=== PATIENT | female | born 1940 | race Caucasian/White ===

== ENCOUNTER → 2017-12-20 13:34 | Outpatient (CLI) | payer MEDICARE, SELFPAY | PROVIDERS: Family Provider Family Medicine; PCP Family Medicine; Visit Provider Nurse Practitioner Family | DX: R30.0 Dysuria (principal) ==

== ENCOUNTER → 2018-03-29 15:14 | Outpatient (CLI) | payer MEDICARE, SELFPAY | PROVIDERS: Family Provider Family Medicine; PCP Family Medicine; Visit Provider Family Medicine | DX: M51.36 Other intervertebral disc degeneration, lumbar region (principal); M43.16 Spondylolisthesis, lumbar region; G89.29 Other chronic pain | CPT/HCPCS: 72110 ==

== ENCOUNTER → 2018-06-19 13:17 | Outpatient (CLI) | payer MEDICARE, SELFPAY ==
--- NOTE | 2018-06-19 13:19 | CT_ITS ---
STUDY: CTA OF THE BRAIN REASON FOR EXAM: Female, 78 years old. One month history of constant headaches. RADIATION DOSAGE (If Supplied By Facility): CTDIvol = ( 26.65 ) mGy, DLP = ( 1140.17 ) mGycm TECHNIQUE: CT angiography was performed with a multi-detector CT scanner. Data acquisition was obtained from the skull base through the vertex following intravenous administration of 50 ml of Isovue-370. MIP images were reconstructed from the axial data set. Post-processing of the angiographic images was performed, with multiplanar reformation and 3D reconstruction. Individualized dose optimization techniques were used for this CT. COMPARISON: None. FINDINGS: Normal bilateral petrous carotid arteries. There is calcified plaque formation of the right cavernous carotid artery, without a cross-sectional luminal stenosis. There is calcified plaque formation of the left cavernous carotid artery, without a cross-sectional luminal stenosis. Normal right A1 segments of the anterior cerebral artery. Normal left A1 segments of the anterior cerebral artery. Normal intact anterior communicating artery (ACOM). Normal bilateral A2 segments of the anterior cerebral arteries. Normal right M1 and M2 segments of the middle cerebral arteries, with a normal M1 bifurcation. Normal left M1 and M2 segments of the middle cerebral arteries, with a normal M1 bifurcation. There is a persistent origin of the right posterior cerebral artery with absence of the posterior communicating artery (PCOM). There is a persistent origin of the left posterior cerebral artery with absence of the posterior communicating artery (PCOM). Normal bilateral vertebral arteries. Normal basilar artery with a normal basilar bifurcation. The visualized bilateral superior cerebellar (SCA) arteries are normal. Normal bilateral P1, P2 and visualized P3 segments of the posterior cerebral arteries. There is no demonstrated aneurysm of the [place]. Mild cerebral atrophy. A tiny lacuna is seen in the right basal ganglion. Mucosal thickening of the maxillary and ethmoid sinus. CT/CTA Head W/WO Contrast IMPRESSION: Cerebral atrophy. Tiny lacunae in the right basal ganglia. Normal [place] without a demonstrated aneurysm or hemodynamically significant stenosis. Electronically Signed: Ender Tucker MD at 14:31 EST Tel [phone], Service support ,
[2018-06-19 13:56] LABS: Absolute Lymphocyte Count 2.57 X10^3/ul (0.83-4.51); Basophil# 0.06 X10^3/uL; Basophil% 0.7 % (0-1); Differential Indicated SCAN CRITERIA MET; Eosinophil# 0.13 X10^3/uL; Eosinophils% 1.5 % (0-5); Hematocrit 32.6 % (37-47); Hemoglobin 9.2 g/dl (12.0-15.0); Lymphocyte # 2.57 X10^3/ul (4.0); Lymphocyte % 30.4 % (19-41); Mean Corp Hgb Conc 28.2 g/gl (32-36); Mean Corpuscular Hgb 18.7 pg (27.0-32.0); Mean Corpuscular Volume 66.3 fL (81-99); Mean Platelet Vol. 9.8 fl (6.2-12.0); Monocyte# 0.74 X10^3/uL; Monocyte% 8.7 % (0-10); Neutrophil # 4.95 X10^3/uL (2.7-7.7); Neutrophil % 58.6 % (47-70); POSITIVE COUNT NO; POSITIVE DIFFERENTIAL NO; POSITIVE MORPHOLOGY YES; Platelet Count 321 K/mm3 (150-450); RBC Distribution Width CV 20.3 % (11.6-14.6); RBC Distribution Width SD 48.1 fl (35.1-43.9); Red Blood Count 4.92 M/mm3 (4.2-5.4); White Blood Count 8.5 K/mm3 (4.4-11.0)
[2018-06-19 13:56] LABS: CREATININE FINGERSTICK 0.7 mg/dL (0.55-1.02); EGFR FINGERSTICK > 60.0000 mL/min (>60)
[2018-06-19 14:12] LABS: Platelet Estimate ADEQUATE (ADEQ)
[2018-06-19 14:13] LABS: Anisocytosis 2+; Hypochromasia 2+; Macrocytosis 1+; Microcytosis 1+; Polychromasia RARE
[2018-06-19 14:28] LABS: Anion Gap 8 (5-15); BUN 23 mg/dL (7-18); BUN/Creat Ratio 29.7 RATIO (10-20); Calcium,Total 8.7 mg/dL (8.5-10.1); Chloride 107 mmol/L (98-107); Creatinine, Serum 0.78 mg/dL (0.55-1.02); EST Glomerular Filtration Rate 76 mL/min (>60); Est Glom Filt Rate - Afr Amer 92 mL/min (>60); Glucose 90 mg/dL (74-106); Potassium 4.3 mmol/L (3.5-5.1); Sodium Level 143 mmol/L (136-145)
== END ==
PROVIDERS: Family Provider Family Medicine; PCP Family Medicine; Referring Provider Internal Medicine; Visit Provider Internal Medicine
DX: G31.9 Degenerative disease of nervous system, unspecified (principal); I10 Essential (primary) hypertension; R51 Headache; R53.83 Other fatigue
CPT/HCPCS: 36415; 70496; 80048; 85025; Q9967

== ENCOUNTER → 2018-09-13 08:42 | Outpatient (CLI) | payer MEDICARE, SELFPAY ==
[2018-08-31 14:10] VITALS: BMI 28.3
--- NOTE | 2018-09-13 08:51 | ART_ITS ---
Procedure A bilateral lower extremity continuous wave Doppler with analog waveform analysis,segmental pressures,and ankle brachial indexes without exercise. Left Segmental Pressures Left brachial= 127mmHg. Left posterior tibial artery = 145mmHg. Left dorsalis pedis artery = 140mmHg. Right Segmental Pressures Right brachial= 137mmHg. Right thigh = 158mmHg. Right calf = 149mmHg. Right posterior tibial artery = 142mmHg. Right dorsalis pedis artery = 132mmHg. Indices The right ankle brachial index by the posterior tibial artery is 1.04. The right ankle brachial index by the dorsalis pedis is 0.96. The left ankle brachial index by the posterior tibial artery is 1.06. The left ankle brachial index by the dorsalis pedis is 1.02. Interpretation Summary 1. No evidence of significant occlussive disease at rest with bilateral triphasic flow and FERN 1.04/1.06. Ordering Physician: Burton Noguera Referring Physician: Burton Noguera Performed By: Danya Ortiz RDCS/RVT
--- NOTE | 2018-09-13 08:51 | CDU_ITS ---
Reason For Study: Carotid Artery Disease Rt. Velocities/BP Lt. Velocities/BP Prox CCA 69/13 cm/sec. Prox CCA 112/22 cm/sec. Mid CCA 72/21 cm/sec. Mid CCA 72/17 cm/sec. Dist CCA 68/18 cm/sec. Dist CCA 245/46 cm/sec. Prox ICA 239/54 cm/sec. Prox ICA 207/49 cm/sec. Mid ICA 167/35 cm/sec. Mid ICA 211/50 cm/sec. Dist ICA 126/24 cm/sec. Dist ICA 115/33 cm/sec. Rt. ICA/CCA = 3.32. Lt. ICA/CCA = 2.93. Prox ECA 120/18 cm/sec. Prox ECA 155/19 cm/sec. Rt. Vert. 58/10 cm/sec. Lt. Vert. 76/17 cm/sec. Right Extracranial There is heterogeneous, smooth atherosclerotic plaque noted in the right common carotid artery. There is heterogeneous, irregular atherosclerotic plaque noted in the right internal carotid artery. There is intimal thickening but no significant atherosclerotic plaque noted in the right external carotid artery. Antegrade flow is noted in the right vertebral artery. Left Extracranial There is homogeneous, smooth atherosclerotic plaque noted in the left common carotid artery. There is homogeneous, irregular atherosclerotic plaque noted in the left internal carotid artery. There is no significant atherosclerotic plaque noted in the left external carotid artery. Antegrade flow is noted in the left vertebral artery. Procedure Carotid Duplex 51854. Prelim given to Donavon Ortiz NP. Exam performed in department. Interpretation Summary Moderate (50-69%) stenosis right extracranial internal carotid. Moderate (50-69%) stenosis left extracranial internal carotid. Flow within the vertebral arteries is antegrade bilaterally. Ordering Physician: Burton Noguera Referring Physician: Levi Rodriguez Performed By: Danya Ortiz, JEFF, RVT
--- NOTE | 2018-09-13 08:51 | AAVD_ITS ---
Reason For Study: AAA Aorta Measurements Aorta Doppler Measurements Proximal aorta measures2.01cm x 2.16cm. in cross- Peak systolic flow velocities within the proximal sectional axis. aorta measure 97 cm/sec. Proximal aorta measures1.87cm. in longitudinal Peak systolic flow velocities within the mid aorta axis. measure 104 cm/sec. Mid aorta measures1.76cm x 1.69cm. in cross- Peak systolic flow velocities within the distal sectional axis. aorta measure 92 cm/sec. Mid aorta measures1.52cm. in longitudinal axis. Distal aorta measures1.35cm x 1.41cm. in cross- sectional axis. Distal aorta measures1.28cm. in longitudinal axis. Left Iliac Artery Left iliac artery measures 0.76cm x 0.71 cm. in the cross-sectional axis. Left iliac artery measures 0.75 cm. in the longitudinal axis. Peak systolic velocity in the left iliac artery measures 194 cm/sec. Right Iliac Artery Right iliac artery measures 0.78cm x 0.80 cm. in the cross-sectional axis. Right iliac artery measures 0.80 cm. in the longitudinal axis. Peak systolic velocity in the right iliac artery measures 182 cm/sec. Procedure Aorta IVC Iliac vasculature or bypass grafts 34915. Exam performed in department. Interpretation Summary 1. No aortoiliac aneurysm or significant stenosis. Ordering Physician: Burton Noguera Referring Physician: Levi Rodriguez Performed By: Danya Ortiz, JEFF, RVT
== END ==
PROVIDERS: Family Provider Family Medicine; PCP Family Medicine; Referring Provider Internal Medicine Cardiovascular Disease; Visit Provider Internal Medicine Cardiovascular Disease
DX: I65.23 Occlusion and stenosis of bilateral carotid arteries (principal); I73.9 Peripheral vascular disease, unspecified
CPT/HCPCS: 93880; 93923; 93978

== ENCOUNTER → 2018-09-26 06:48 | Outpatient (CLI) | payer MEDICARE, SELFPAY ==
[2018-08-31 14:10] VITALS: BMI 28.3
--- NOTE | 2018-09-26 06:53 | ECHOD_ITS ---
Reason For Study: CAD/ASHD Procedure This was a 2D Doppler, Color Flow transthoracic echocardiogram. Myocardial strain analysis was performed in this exam to aid in the assessment of cardiac function. The exam was of fair technical quality due to diminished acoustic windows. Exam performed in department. Left Ventricle Normal LV size. Left ventricular systolic function is normal. The estimated ejection fraction is 60 %. The global longitudinal strain = -22 % (normal). There is evidence of diastolic dysfunction. No regional wall motion abnormalities noted. Right Ventricle Normal RV size. Normal systolic function. Atria The left atrium is mildly enlarged. Normal right atrium. No doppler evidence for ASD. Mitral Valve There is mild mitral annular calcification. Extension of the mitral annular recalcification into the base of the posterior mitral valve leaflet. Trivial mitral valve insufficiency. Tricuspid Valve Normal tricuspid valve. Trivial tricuspid valve insufficiency. Right ventricular systolic pressure estimated to be 35 mmHg. Aortic Valve Trisinus/trileaflet aortic valve. Mild focal aortic valve calcification. Pulmonic Valve The pulmonic valve is not well visualized. Trivial pulmonic valve insufficiency. Great Vessels Normal sized aortic root. Pericardium/Pleural No pericardial effusion. MMode/2D Measurements & Calculations LVIDd: 4.7 cm IVSd: 0.82 cm Ao root diam: 3.1 cm LVIDs: 3.7 cm LVPWd: 0.88 cm RVDd: 3.8 cm FS: 22.9 % LAV(MOD-bp): 50.7 ml LVAd ap4: 34.0 cm2 SV(MOD-sp4): 65.5 ml LAV(MOD-bp) Indexed: 29.9 ml/m2 EDV(MOD-sp4): 111.5 ml LAV(MOD-sp2): 53.9 ml EDV(sp4-el): 118.5 ml LAV(MOD-sp4): 45.9 ml LVAs ap4: 19.9 cm2 ESV(MOD-sp4): 46.0 ml ESV(sp4-el): 47.1 ml EF(MOD-sp4): 58.7 % EF(sp4-el): 60.2 % SV(sp4-el): 71.3 ml LA A4 area: 17.4 cm2 LA dimension(2D): 3.1 cm RA A4 area: 14.4 cm2 Time Measurements MV dec time: 0.29 sec Doppler Measurements & Calculations MV E max andrea: 115.0 cm/sec Lat Peak E' Andrea: 8.0 cm/sec Med Peak E' Andrea: 5.6 cm/sec MV A max andrea: 143.5 cm/sec E/E' lat: 14.5 E/E' med: 20.4 MV E/A: 0.80 Ao V2 max: 146.8 cm/sec LV V1 max: 133.2 cm/sec PA V2 max: 101.9 cm/sec Ao max P.6 mmHg LV V1 max P.1 mmHg TR max andrea: 283.4 cm/sec TR max P.1 mmHg Interpretation Summary Left ventricular systolic function is normal. The estimated ejection fraction is 60 %. The global longitudinal strain = -22 % (normal). The left atrium is mildly enlarged. There is mild mitral annular calcification. Extension of the mitral annular recalcification into the base of the posterior mitral valve leaflet. Trivial mitral valve insufficiency. Trivial tricuspid valve insufficiency. Mild focal aortic valve calcification. Trivial pulmonic valve insufficiency. Right ventricular systolic pressure estimated to be 35 mmHg. There is evidence of diastolic dysfunction. Ordering Physician: Burton Noguera Referring Physician: SHARI PENDLETON Performed By: Jane Hays RDCS
--- NOTE | 2018-09-26 12:49 | STRESSREP_ITS ---
Stress Test Report Date: 09-26-2018 Procedure: Pharmacologic stress nuclear imaging study Indications: CAD; PCI; peripheral arterial occlusive disease Consent: Per the patient Procedure: The patient underwent pharmacologic (Regadenoson) evaluation with a peak heart rate of 100 beats per minute (71% predicted maximal heart rate) and a peak blood pressure of 138/70 mmHg. The baseline ECG demonstrated Normal sinus rhythm; nonspecific ST/T-wave abnormality . The peak pharmacologic ECG demonstrated continued nonspecific ST/T-wave abnormality . There was a rare PVC during recovery . There was no complaint of chest discomfort during pharmacologic infusion or recovery. The examination was discontinued secondary to completion of protocol. Impression: 1. Pharmacologic (Regadenoson) evaluation 2. Peak pharmacologic ECG with Continue nonspecific ST/T-wave abnormality . 3. There was a rare PVC during recovery . 4. Nuclear images pending Myocardial perfusion imaging study: Technique: The patient was injected with 10.6 millicuries of technetium 99m Cardiolite and subsequently rest SPECT Cardiolite nuclear imaging was obtained in the horiz ontal long, vertical long, and short axis views. The patient underwent pharmacologic (Regadenoson) evaluation with a peak heart rate of 100 beats per minute (71 % percent predicted maximal heart rate) and a peak blood pressure of 138/70 mmHg. The patient was injected with 32.3 millicuries of technetium 99m Cardiolite and subsequently stress SPECT Cardiolite nuclear imaging was obtained in the horizontal long, vertical long, and short axis views. A gated Cardiolite study at peak stress was obtained. Interpretation: Rest and stress SPECT Cardiolite nuclear imaging status post realignment, normalization, and attenuation correction demonstrate relative uniform tracer uptake and myocardial perfusion appearing within normal limits . There is end systolic thickening and brightening. The gated Cardiolite study demonstrates myocardial thickening and inward wall motion. The reported LVEF is 70 %. Impression: 1. Rest and stress SPECT Cardiolite nuclear imaging demonstrate relative uniform tracer uptake and myocardial perfusion appearing within normal limits. 2. The gated Cardiolite study reports an LVEF of 70 %. This note was generated with Bullhornation software. It may contain incorrect words, spelling, and punctuation that were not noted in checking the note before signing.
== END ==
PROVIDERS: Family Provider Family Medicine; PCP Family Medicine; Referring Provider Internal Medicine Cardiovascular Disease; Visit Provider Internal Medicine Cardiovascular Disease
DX: I25.10 Atherosclerotic heart disease of native coronary artery without angina pectoris (principal); Z95.5 Presence of coronary angioplasty implant and graft; R06.09 Other forms of dyspnea
CPT/HCPCS: 78452; 93017; 93306; A9500; A4216; J2785

== ENCOUNTER → 2018-10-02 14:17 | Outpatient (CLI) | payer MEDICARE, SELFPAY ==
[2018-10-02 14:09] VITALS: BMI 28.3
--- NOTE | 2018-10-02 14:20 | RAD_ITS ---
HISTORY: CHRONIC PAIN, NKI COMPARISON: None FINDINGS: # of images incl. paperwork: 5 AP view of the pelvis. AP and lateral views of both hips: PELVIC BONES: No displaced fracture, destructive or sclerotic lesions. Note that overlapping bowel shadows may however obscure fine detail. Sacroiliac joints are unremarkable. HIPS: Mild bilateral hip osteoarthritis, mild for age. No displaced fracture or dislocation. SOFT TISSUES: Unremarkable. Lumbar spine fusion hardware partially visible. RAD/Hips B/L min 2 views w/ Pelvis IMPRESSION: No acute findings. Mild for age bilateral hip osteoarthritis. at 0411 Reported and signed by: Andrey Queen MD Electronically Signed: Andrey Queen, at 4:10 EST Tel , Service support ,
== END ==
PROVIDERS: Family Provider Family Medicine; PCP Family Medicine; Referring Provider Orthopaedic Surgery; Visit Provider Orthopaedic Surgery
DX: M16.0 Bilateral primary osteoarthritis of hip (principal)
CPT/HCPCS: 73521

== ENCOUNTER → 2018-10-03 09:30 | Outpatient (CLI) | payer MEDICARE, SELFPAY ==
[2018-10-03 09:09] VITALS: BMI 28.3
[2018-10-03 12:50] LABS: Anion Gap 6 (5-15); BUN 30 mg/dL (7-18); BUN/Creat Ratio 31.7 RATIO (10-20); Calcium,Total 9.6 mg/dL (8.5-10.1); Chloride 106 mmol/L (98-107); Creatinine, Serum 0.94 mg/dL (0.55-1.02); EST Glomerular Filtration Rate 61 mL/min (>60); Est Glom Filt Rate - Afr Amer 73 mL/min (>60); Glucose 134 mg/dL (74-106); Sodium Level 138 mmol/L (136-145)
== END ==
PROVIDERS: Family Provider Family Medicine; PCP Family Medicine; Visit Provider Internal Medicine
DX: I10 Essential (primary) hypertension (principal)
CPT/HCPCS: 36415; 80048

== ENCOUNTER → 2018-10-17 12:02 | Outpatient (CLI) | payer MEDICARE, SELFPAY ==
[2018-10-17 11:00] VITALS: BMI 28.3
[2018-10-17 12:55] LABS: Absolute Neutrophil Count 6.3 X10^3/uL (2.0-7.7); Basophil# 0.05 X10^3/uL; Basophil% 0.5 % (0-1); Eosinophil# 0.18 X10^3/uL; Eosinophils% 1.9 % (0-5); Lymphocyte % 22.1 % (19-41); Mean Corp Hgb Conc 30.6 g/gl (32-36); Mean Corpuscular Hgb 22.4 pg (27.0-32.0); Mean Corpuscular Volume 73.3 fL (81-99); Mean Platelet Vol. 11.1 fl (6.2-12.0); Monocyte# 0.82 X10^3/uL; Monocyte% 8.6 % (0-10); Neutrophil # 6.33 X10^3/uL (2.7-7.7); Neutrophil % 66.8 % (47-70); Platelet Count 256 K/mm3 (150-450); RBC Distribution Width CV 18.4 % (11.6-14.6); RBC Distribution Width SD 47.2 fl (35.1-43.9); Red Blood Count 4.91 M/mm3 (4.2-5.4); White Blood Count 9.5 K/mm3 (4.4-11.0)
[2018-10-17 12:56] LABS: Differential Indicated SCAN CRITERIA MET; POSITIVE COUNT NO; POSITIVE DIFFERENTIAL NO; POSITIVE MORPHOLOGY YES
[2018-10-17 13:40] LABS: Hypochromasia 1+; Microcytosis 2+
[2018-10-17 14:08] LABS: Ferritin 5 ng/mL (8-252); Iron 19 ug/dL (50-170); Iron Binding Capacity,Total 456 ug/dL (250-450)
== END ==
PROVIDERS: Family Provider Family Medicine; PCP Family Medicine; Visit Provider Internal Medicine
DX: D64.9 Anemia, unspecified (principal); Z98.890 Other specified postprocedural states
CPT/HCPCS: 82728; 83540; 83550; 85025

== ENCOUNTER → 2018-10-27 16:39 | Outpatient (CLI) | payer MEDICARE, SELFPAY ==
[2018-10-17 11:00] VITALS: BMI 28.3
--- NOTE | 2018-10-27 16:45 | RAD_ITS ---
STUDY: X-RAY - LUMBAR SPINE REASON FOR EXAM: Female, 78 years old. Chronic low back pain. TECHNIQUE: 5 view(s) of the lumbar spine were obtained including oblique views. COMPARISON: None FINDINGS: There is an exaggerated lumbar lordosis. There is no substantial scoliosis. Grade 1 anterolisthesis of L4 on L5. Normal vertebral bodies and endplates. There is multi-level degenerative disc disease with multi-level disc space narrowing. Is evidence of prior laminectomy and interpedicular screw fixation at the L4-L5 and L5-S1 levels. There is atherosclerotic calcification of the abdominal aorta without a demonstrated aneurysm. RAD/L/S Spine Min 4 Views IMPRESSION: Degenerative changes of the spine, as detailed above. Prior laminectomy and fusion at the L4-L5 and L5-S1 levels. Grade 1 anterolisthesis of L4 on L5 Electronically Signed: Ender Tucker, at 12:47 EDT , Service support ,
--- NOTE | 2018-10-27 16:48 | RAD_ITS ---
STUDY: X-RAY - CERVICAL SPINE REASON FOR EXAM: Female, 78 years old. Chronic neck pain. TECHNIQUE: 5 view(s) of the cervical spine were obtained including oblique views. COMPARISON: None FINDINGS: There are degenerative changes of the anterior atlantoaxial articulation. Normal odontoid process. There is an exaggerated cervical lordosis. Normal vertebral bodies and endplates. Minimal anterior listhesis of C4 on C5 due to facet joint osteoarthritis. Normal disc space heights. Normal visualized intervertebral neuroforamina. Surgical clips are seen in the left side of the neck most likely from prior carotid endarterectomy. RAD/Cerv Spine 4 or 5 Views IMPRESSION: Facet joint osteoarthritis with minimal anterior listhesis of C4 on C5. Electronically Signed: Ender Tucker, at 12:45 EDT , Service support ,
== END ==
PROVIDERS: Family Provider Family Medicine; PCP Family Medicine; Referring Provider Anesthesiology; Visit Provider Anesthesiology
DX: M54.2 Cervicalgia (principal)
CPT/HCPCS: 72050; 72110

== ENCOUNTER 2018-11-13 14:30 | Outpatient (RCR) | payer MEDICARE, SELFPAY ==
[2018-10-17 11:00] VITALS: BMI 28.3
--- NOTE | 2018-11-03 13:56 | HP.PTEVAL_ITS ---
Patient's Visit Information JUAN CARLOS XIAO is a 78 year old F referred to Physical Therapy by Theo Tay MD with a diagnosis of LBP. Date of Evaluation: 11/03/18 Physical Therapist: Angel Ball, PT, ATC - Visit Plan Frequency: 2x /Week Duration: 1 Week Plan: Educate and issue pt a HEP consisting of aquatic therapy ex's for core strengthening and scap stab ex's. - Subjective Findings: Pt reports she has had LBP for several years. Pt reports just recently, her pain has begun to radiate up her back. Pt reports she is significantly limited with house chores such as sweeing secondary to pain. Pt reports she also has a wood burner and it hurts her back to carry wood from her garage. Pt reports she has sleep difficulty secondary to pain. Pt also notes she gets cramping in her calves and feet. Pt reports she had xrays of her L/S but has never received the results. 5/10 at rest, 10/10 at worst - Pain LBP Pain Intensity (Out of 10): 6 Pain Intensity Range: 10 - Objective Neuro: B LE sensation is WNL to light touch. B patellar tendon reflex= 2/3. MMT: B LE's are 5/5 throughout. Gait: Pt is able to ambulate greater than 1000' - Goals Goal 1:: I with aquatic therapy program after 3 visits Goal Time Frame: 2 Weeks - Rehabilitation Potential Physical Therapy Diagnosis: Pt has difficulty with IADL's and housse chores secondary to degenerative changes in the L/S Rehabilitation Potential: Good - Anticipated Interventions Patient/Client Instruction: Educate patient on: Condition For the Purpose of:: To improve self management Therapeutic Exercise to Include: Strength training, Body mechanics, Postural training, In an aquatic setting, Dynamic Lumbar Stabilization, Scapular St rength/Stabilization For the Purpose of:: To decrease pain, To improve muscle performance and motor function Thank you for the opportunity to evaluate your patient. For Medicare and Medicare HMO plans, please review the plan of care and approve it. It will need to be FAXED BACK to us at [phone] for Medicare purposes. For Medicare only, by signing this I certify the plan of care. Please let me know if there are questions or concerns regarding this plan of care. Physician Signature: Date:
--- NOTE | 2018-11-13 15:31 | HP.PTDCSUM ---
HP - PT D/C Summary It has been my pleasure to treat JUAN CARLOS XIAO under orders from Theo Tay MD, for the diagnosis of LBP for a total of 3 visit(s). Discharge Date: Please see the following information for a summary of their discharge status. - Subjective Subjective: Pt reports her pain is better today - Pain LBP Pain Intensity (Out of 10): 3 - Objective Objective/Function: Pt is now I with HEP. Decreased pain overall. Pt is now posturally aware and continues to verbally and physically demonstrate. Rx goals achieved - Goals Goal 1:: I with aquatic therapy program after 3 visits - Plan Plan: Discharge - D/C Information If there are questions or concerns regarding this patient's physical therapy, please feel free to call me at [phone]. Thank you for the referral of this patient. Sincerely, Angel Ball, PT, ATC
== END 2018-11-13 19:00 | disposition home or self-care (01) ==
LOC: PT 14:30
PROVIDERS: Family Provider Internal Medicine; PCP Internal Medicine; Referring Provider Anesthesiology; Visit Provider Anesthesiology
DX: M54.2 Cervicalgia (principal); M54.12 Radiculopathy, cervical region; M51.36 Other intervertebral disc degeneration, lumbar region
CPT/HCPCS: 97113; 97161; 97530

== ENCOUNTER → 2018-11-27 10:56 | Outpatient (CLI) | payer MEDICARE, SELFPAY ==
[2018-11-20 13:36] VITALS: BMI 28.3
[2018-11-27 12:49] LABS: Cholesterol 167 mg/dL (200); High Density Lipoprotein 44 mg/dL; Triglycerides 235 mg/dL
[2018-11-27 12:50] LABS: T4 Free Direct 1.38 ng/dL (0.76-1.46); Thyroid Stim Hormone (TSH) 3.37 uIU/mL (0.358-3.74); Very Low Density Lipoprotein 47 mg/dL (5-40)
== END ==
PROVIDERS: Family Provider Internal Medicine; PCP Family Medicine; Visit Provider Internal Medicine
DX: E03.9 Hypothyroidism, unspecified (principal); E78.5 Hyperlipidemia, unspecified
CPT/HCPCS: 36415; 80061; 84439; 84443

== ENCOUNTER → 2018-12-12 12:56 | Outpatient (CLI) | payer MEDICARE, SELFPAY ==
[2018-08-31 14:10] VITALS: BMI 28.3
[2018-11-20 13:36] VITALS: BMI 28.3
--- NOTE | 2018-12-12 13:01 | VDLE_ITS ---
Reason For Study: chronic venous insufficiency RIGHT LEFT CFV is compressible, spontaneous, phasic, CFV is compressible, spontaneous, phasic, competent and demonstrates normal competent, and demonstrates normal augmentation. augmentation. FV is compressible, spontaneous, phasic, FV is compressible, spontaneous, phasic, competent and demonstrates normal competent and demonstrates normal augmentation. augmentation. POP V is compressible, spontaneous, phasic, POP V is compressible, spontaneous, phasic, competent and demonstrates normal competent and demonstrates normal augmentation. augmentation. T/P Trunk is compressible. T/P Trunk is compressible. PTV is compressible. PTV is compressible. RT PerV is compressible. LT PerV is compressible. S-F Junction is competent. S-F Junction is competent. GSV is competent throughout. GSV is competent throughout. SSV is incompetent for greater than .5 SSV is competent. seconds. SSV measures .27 x .28 cm. Inhalation Therapy Aides Teacher V 10 cm proximal to the medial malleolus is incompetent for greater than .5 seconds. Procedure Exam performed in department. Patient was scanned in reverse Trendelenburg position during reflux assessment. The exam was diagnostic. Interpretation Summary 1. Bilateral no DVT or SVT. 2. Reflux in right LSV at 2.8mm and calf physical medicine specialist. Ordering Physician: Scott King Performed By: Mark Rodriges RVXavi
== END ==
PROVIDERS: Family Provider Internal Medicine; PCP Family Medicine; Referring Provider Surgery Vascular Surgery; Visit Provider Surgery Vascular Surgery
DX: M79.89 Other specified soft tissue disorders (principal); M79.609 Pain in unspecified limb
CPT/HCPCS: 93970

== ENCOUNTER → 2018-12-18 15:39 | Outpatient (CLI) | payer MEDICARE, SELFPAY ==
[2018-12-18 13:51] VITALS: BMI 28.3
[2018-12-18 15:57] LABS: Bacteria 0 SEEN /hpf (None Seen); Mucous, Urine 0 SEEN /hpf (<or=2+); Red Blood Cells-Urine 0 SEEN /hpf (0-5)
[2018-12-18 16:16] LABS: Color, Urine Yellow (Yellow); Glucose, Dipstick Normal (Normal); Ketone-Dipstick Negative (Negative); Leukocyte Esterase-Dipstick 25 /ul (Negative); Nitrite-Dipstick Negative (Negative); Occult Blood-Urine Negative /ul (Negative); Protein-Dipstick Negative (Negative); Specific Gravity, Urine 1.015 (1.002-1.030); Urine Bilirubin Dipstick Negative (Negative); Urine Clarity Clear (Clear); Urine Urobilinogen Normal (Normal)
[2018-12-18 16:36] LABS: Squamous Epithelial Cells - UA 0-5 SEEN /hpf (5-10); White Blood Cells 5-10 SEEN /hpf (0-5)
== END ==
PROVIDERS: Family Provider Internal Medicine; PCP Internal Medicine; Referring Provider Internal Medicine; Visit Provider Internal Medicine
DX: R30.9 Painful micturition, unspecified (principal)
CPT/HCPCS: 81001; 87086; 87088

== ENCOUNTER 2018-12-22 12:57 | Day surgery (SDC) | payer MEDICARE, SELFPAY ==
[2018-12-18 13:51] VITALS: BMI 28.3
[2018-12-22 13:53] VITALS: BP 190/60; PULSE 66; RESP 18; TEMP 36.6; O2SAT 98; BMI 24.2
--- NOTE | 2018-12-22 14:58 | DCINST_ITS ---
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 You will use the following diet at home:: No restrictions, Regular Your food should be the consistency of: Regular Discharge Activity: Return to Normal Activity May shower in (days): 1 May resume sexual activity in: No Restrictions Weight Bearing Status: Weight bearing as tolerated Call your doctor if your incision/area has: Continuous Slow Oozing, Sudden Increased Bleeding, Increased Redness, Foul Smelling Discharge, Swelling at the incision site Call your doctor if you observe: Fever of 101 or Higher, Coldness, Increased Pain, Numbness or Tingling, Uncontrolled pain Suture Line Care: Avoid Pulling/Pushing, Avoid Pinching/Bending Remove Dressing in (days):: 1 Cleanse incision/area with: Soap & Water Allergies/Adverse Reactions: Allergies cortisone Allergy (Intermediate, Verified 12/18/18 13:43) high BP, Swelling prednisone Allergy (Intermediate, Verified 12/18/18 13:43) High BP, Swelling Medications to take at Discharge aspirin 81 mg tablet,delayed release 81 mg PO DAILY 03/29/18 nitroglycerin 0.4 mg sublingual tablet 0.4 mg SUBLINGUAL Q5-15M PRN #10 tab 06/28/18 enalapril maleate 10 mg tablet 15 mg PO BID #180 tab 07/28/18 metoprolol succinate ER 100 mg tablet,extended release 24 hr 100 mg PO BID #180 tab 07/28/18 meloxicam 15 mg tablet 15 mg PO DAILY #90 tab 08/19/18 cholecalciferol (vitamin D3) 2,000 unit tablet 2,000 unit PO DAILY 08/31/18 amlodipine 5 mg tablet 5 mg PO DAILY #90 tab 10/03/18 levothyroxine 125 mcg capsule 125 mcg PO QDAY #90 cap 10/04/18 pentoxifylline ER 400 mg tablet,extended release 400 mg PO BID #180 tab 10/04/18 pravastatin 80 mg tablet 80 mg PO QDAY #90 tab 10/04/18 furosemide 20 mg tablet 20 mg PO DAILY #90 tab 10/05/18 ferrous sulfate 325 mg (65 mg iron) tablet,delayed release 325 mg PO DAILY #90 tab 10/17/18 paroxetine 20 mg tablet 20 mg PO DAILY #30 tab 12/18/18 Primary Care Physician: Ade Mcrae MD [Primary Care Provider] - Test Results: Test results from this visit will be discussed in further detail at your follow- up appointment, if applicable. Please Follow Up With: Theo Tay MD
--- NOTE | 2018-12-22 14:58 | PCM.OPRPT ---
Problem List (1) Low back pain Status: Chronic (2) Spondylosis of lumbar region without myelopathy or radiculopathy Status: Acute (3) Spondylosis of lumbar region without myelopathy or radiculopathy Status: Acute Report of Operation Date of Procedure: 12/22/18 Pre-Operative Diagnosis: Lumbar facet spondylosis Post-Operative Diagnosis: Lower back pain and lumbar facet spondylosis Surgery/Procedure Performed:: Left-sided lumbar facets injection/left L3-4 L4-5 L5-S1 median nerve branch block under fluoroscopy guidance Description of Surgical Findings:: Under sterile conditions. Patient placed in the prone position, pressure points were padded, patient was ready from the nursing and the anesthesia team. After identification of the side and the target area for the block under guided fluoroscopy, the entry site was marked with marking pen. I used Betadine for sterilization of the skin, sterile draping were applied. Using 25-gauge needle to infiltrate the skin with local anesthesia using preservative-free lidocaine 0.5% injected 2.5 mL at each site of entry. Using oblique fluoroscopy, accessed the leftt medial nerve branch supplying the left lumbar facets L3-4, L4-5, L5-S1 using 22-gauge spinal needle. After confirmation of appropriate needle placement to the targeted area with AP and lateral fluoroscopy, injected 2.5 mL mixture of preservative-free Marcaine 0.5% and Kenalog [20] mg at each site. [place] was removed, pressure dressing were applied. Patient tolerated the procedure well and was taken to the recovery. Type of Anesthesia:: Local MAC - Complications None
--- NOTE | 2018-12-22 15:23 | RAD_ITS ---
STUDY: X-RAY - LUMBAR SPINE REASON FOR EXAM: Female, 78 years old. Block TECHNIQUE: 2 view(s) of the lumbar spine were obtained. COMPARISON: None FINDINGS: 2 images were submitted, as radiology support for c-arm imaging in the operating room. This is not a diagnostic examination. Images for documentation purposes only. Fluoroscopy time if reported: 13 seconds. 2.74 mGy. RAD/L/S Spine Min 4 Views IMPRESSION: Intraoperative fluoroscopic image guidance. Electronically Signed: Christy Hernandez MD at 23:35 EDT , Service support ,
[2018-12-22] MEDS: Triamcinolone Acetonide 40 MG/ML Vial (15:35)
[2018-12-22] MEDS: Bupivacaine 0.25% 30 ML Vial (15:35)
[2018-12-22 15:47] VITALS: BP 134/66; BP 150/70; PULSE 60; RESP 18; TEMP 36.6; O2SAT 100
[2018-12-22 15:50] VITALS: BP 150/70; BP 159/64; PULSE 55; RESP 18; O2SAT 98
[2018-12-22 15:55] VITALS: BP 150/65; BP 150/70; PULSE 55; RESP 18; TEMP 36.6; O2SAT 98
[2018-12-22 16:23] VITALS: BP 150/70
== END 2018-12-22 16:24 | disposition home or self-care (01) ==
LOC: SDC 12:58 → AC 12:59
PROVIDERS: Family Provider Internal Medicine; PCP Internal Medicine; Referring Provider Anesthesiology; Visit Provider Anesthesiology
PROC: 3E0T3BZ Introduction of Anesthetic Agent into Peripheral Nerves and Plexi, Percutaneous Approach (ICD-10-PCS; CPT 64493; principal; 2018-12-22 14:10)
DX: M47.816 Spondylosis without myelopathy or radiculopathy, lumbar region (principal); G89.29 Other chronic pain; I25.2 Old myocardial infarction; I10 Essential (primary) hypertension; E06.9 Thyroiditis, unspecified; M19.90 Unspecified osteoarthritis, unspecified site; F17.200 Nicotine dependence, unspecified, uncomplicated; Z95.5 Presence of coronary angioplasty implant and graft; Z79.82 Long term (current) use of aspirin; Z79.899 Other long term (current) drug therapy
CPT/HCPCS: 64493; 64494; 64495; 64483; 72020; 72110; J7120

== ENCOUNTER → 2018-12-25 10:51 | Outpatient (CLI) | payer MEDICARE, SELFPAY ==
[2018-12-18 13:51] VITALS: BMI 28.3
[2018-12-22 13:53] VITALS: BMI 24.2
--- NOTE | 2018-12-25 11:37 | US_ITS ---
STUDY: ABDOMINAL ULTRASOUND - RIGHT LOWER QUADRANT REASON FOR VISIT: Female, 78 years old. Right lower quadrant pain. History of appendectomy. TECHNIQUE: Ultrasound evaluation of the right lower quadrant was performed with real-time and static pennington-scale imaging. TECHNICAL QUALITY: Adequate. COMPARISON: None. FINDINGS: Imaging at the area of interest, area pain. No acute abnormality is evident. The right ovary is identified within the [id number], measuring 20 x 27 x 12 mm, normal sonographic features. US/Abdomen Limited IMPRESSION: Normal right lower quadrant sonogram. Electronically Signed: Jose Cruz Thomas MD at 13:51 EDT Tel , Service support ,
== END ==
PROVIDERS: Family Provider Internal Medicine; PCP Internal Medicine; Referring Provider Internal Medicine; Visit Provider Internal Medicine
DX: R10.31 Right lower quadrant pain (principal); R30.9 Painful micturition, unspecified
CPT/HCPCS: 76705

== ENCOUNTER → 2019-03-16 10:53 | Outpatient (CLI) | payer MEDICARE, SELFPAY ==
[2019-03-16 10:28] VITALS: BMI 24.2
[2019-03-16 12:25] LABS: Absolute Lymphocyte Count 1.78 X10^3/uL (0.83-4.51); Absolute Neutrophil Count 6.5 X10^3/uL (2.0-7.7); Basophil# 0.05 X10^3/uL; Basophil% 0.5 % (0-1); Eosinophil# 0.14 X10^3/uL; Eosinophils% 1.5 % (0-5); Hematocrit 47.5 % (37-47); Hemoglobin 15.6 g/dL (12.0-15.0); Lymphocyte # 1.78 X10^3/ul (4.0); Lymphocyte % 19.2 % (19-41); Mean Corp Hgb Conc 32.8 g/dL (32-36); Mean Corpuscular Hgb 30.9 pg (27.0-32.0); Mean Corpuscular Volume 94.1 fL (81-99); Mean Platelet Vol. 11.1 fl (6.2-12.0); Monocyte# 0.79 X10^3/uL; Monocyte% 8.5 % (0-10); NRBC Flagged by Analyzer 0 % (0-5); Neutrophil # 6.48 X10^3/uL (2.7-7.7); Neutrophil % 69.8 % (47-70); Platelet Count 208 K/mm3 (150-450); RBC Distribution Width CV 15.1 % (11.6-14.6); RBC Distribution Width SD 51.9 fl (35.1-43.9); Red Blood Count 5.05 M/mm3 (4.2-5.4); White Blood Count 9.3 K/mm3 (4.4-11.0)
[2019-03-16 12:38] LABS: Anion Gap 4 (5-15); BUN 23 mg/dL (7-18); BUN/Creat Ratio 24.5 RATIO (10-20); Calcium,Total 9.3 mg/dL (8.5-10.1); Chloride 107 mmol/L (98-107); Creatinine, Serum 0.94 mg/dL (0.55-1.02); EST Glomerular Filtration Rate 61 mL/min (>60); Est Glom Filt Rate - Afr Amer 74 mL/min (>60); Glucose 91 mg/dL (74-106); Magnesium 2.1 mg/dL (1.6-2.6); Potassium 5.2 mmol/L (3.5-5.1); Sodium Level 142 mmol/L (136-145)
== END ==
PROVIDERS: Family Provider Internal Medicine; PCP Family Medicine; Visit Provider Internal Medicine
DX: I10 Essential (primary) hypertension (principal); D50.9 Iron deficiency anemia, unspecified; K52.9 Noninfective gastroenteritis and colitis, unspecified
CPT/HCPCS: 36415; 80048; 83735; 85025

== ENCOUNTER → 2019-09-17 09:54 | Outpatient (CLI) | payer MEDICARE, SELFPAY ==
[2019-09-04 14:19] VITALS: BMI 24.2
--- NOTE | 2019-09-17 09:58 | CDU_ITS ---
Reason For Study: Carotid stenosis Rt. Velocities/BP Lt. Velocities/BP Prox CCA 68.2/12.1 cm/sec. Prox CCA 86.4/17 cm/sec. Mid CCA 60.4/14.7 cm/sec. Mid CCA 75.3/16.3 cm/sec. Dist CCA 61.7/14.7 cm/sec. Dist CCA 195/42.2 cm/sec. Prox ICA 182.1/42.2 cm/sec. Prox ICA 220.7/26.8 cm/sec. Mid ICA 147.7/27 cm/sec. Mid ICA 161.4/26.7 cm/sec. Dist ICA 145.5/42.4 cm/sec. Dist ICA 97.4/24.3 cm/sec. Rt. ICA/CCA = 2.95. Lt. ICA/CCA = 2.55. Prox ECA 124.7/9.7 cm/sec. Prox ECA 84.6/7.9 cm/sec. Rt. Vert. 47.5/7.8 cm/sec. Lt. Vert. 64.2/13.9 cm/sec. Right Extracranial There is homogeneous, smooth atherosclerotic plaque noted in the right common carotid artery. There is heterogeneous, irregular atherosclerotic plaque noted in the right internal carotid artery. There is intimal thickening but no significant atherosclerotic plaque noted in the right external carotid artery. Antegrade flow is noted in the right vertebral artery. Left Extracranial There is homogeneous, smooth atherosclerotic plaque noted in the left common carotid artery. There is homogeneous, irregular atherosclerotic plaque noted in the left internal carotid artery. There is no significant atherosclerotic plaque noted in the left external carotid artery. Antegrade flow is noted in the left vertebral artery. Procedure Carotid Duplex 23736. Exam performed in department. Interpretation Summary Moderate (50-69%) stenosis right extracranial internal carotid. Moderate (50-69%) stenosis left extracranial internal carotid. Flow within the vertebral arteries is antegrade bilaterally. Ordering Physician: Scott King Referring Physician: Ade Mcrae Performed By: Courtney Browning RVT
== END ==
PROVIDERS: PCP Internal Medicine; Referring Provider Surgery Vascular Surgery; Visit Provider Surgery Vascular Surgery
DX: I65.23 Occlusion and stenosis of bilateral carotid arteries (principal); Z72.0 Tobacco use
CPT/HCPCS: 93880

== ENCOUNTER → 2019-10-10 12:22 | Outpatient (CLI) | payer MEDICARE, SELFPAY ==
[2019-10-10 11:47] VITALS: BMI 24.2
[2019-10-10 13:47] LABS: AST(SGOT) 17 U/L (15-37); Alanine Aminotransfer ALT/SGPT 15 U/L (13-56); Albumin, Serum 3.5 g/dL (3.2-5.0); Alkaline Phosphatase 97 U/L (45-117); Cholesterol 214 mg/dL (200); Globulin 3.9 g/dL (2.2-4.2); High Density Lipoprotein 66 mg/dL; Protein, Total 7.4 g/dL (6.4-8.2); Triglycerides 135 mg/dL; Very Low Density Lipoprotein 27 mg/dL (5-40)
== END ==
PROVIDERS: PCP Internal Medicine; Referring Provider Internal Medicine Cardiovascular Disease; Visit Provider Internal Medicine Cardiovascular Disease
DX: E78.00 Pure hypercholesterolemia, unspecified (principal)
CPT/HCPCS: 36415; 80061; 80076

== ENCOUNTER → 2019-11-06 08:56 | Outpatient (CLI) | payer MEDICARE, SELFPAY ==
[2019-11-06 08:37] VITALS: BMI 24.2
[2019-11-06 09:56] LABS: Absolute Neutrophil Count 5.6 X10^3/uL (2.0-7.7); Basophil# 0.06 X10^3/uL; Basophil% 0.7 % (0-1); Eosinophil# 0.22 X10^3/uL; Eosinophils% 2.6 % (0-5); Hemoglobin 13.9 g/dL (12.0-15.0); Lymphocyte % 20.4 % (19-41); Mean Corp Hgb Conc 32.3 g/dL (32-36); Mean Corpuscular Hgb 28.2 pg (27.0-32.0); Mean Corpuscular Volume 87.2 fL (81-99); Mean Platelet Vol. 11.5 fl (6.2-12.0); Monocyte# 0.78 X10^3/uL; Monocyte% 9.3 % (0-10); NRBC Flagged by Analyzer 0 % (0-5); Neutrophil # 5.57 X10^3/uL (2.7-7.7); Neutrophil % 66.8 % (47-70); Platelet Count 223 K/mm3 (150-450); RBC Distribution Width CV 14.9 % (11.6-14.6); RBC Distribution Width SD 47.8 fl (35.1-43.9); Red Blood Count 4.93 M/mm3 (4.2-5.4); White Blood Count 8.4 K/mm3 (4.4-11.0)
[2019-11-06 10:34] LABS: AST(SGOT) 17 U/L (15-37); Alanine Aminotransfer ALT/SGPT 14 U/L (13-56); Albumin, Serum 3.5 g/dL (3.2-5.0); Alkaline Phosphatase 97 U/L (45-117); Anion Gap 3 (5-15); BUN 24 mg/dL (7-18); BUN/Creat Ratio 23.5 RATIO (10-20); Calcium,Total 9.4 mg/dL (8.5-10.1); Chloride 108 mmol/L (98-107); Creatinine, Serum 1.02 mg/dL (0.55-1.02); EST Glomerular Filtration Rate 55 mL/min (>60); Est Glom Filt Rate - Afr Amer 67 mL/min (>60); Globulin 3.5 g/dL (2.2-4.2); Glucose 93 mg/dL (74-106); Sodium Level 142 mmol/L (136-145); Thyroid Stim Hormone (TSH) 0.44 uIU/mL (0.358-3.74)
== END ==
LOC: EPLAB 08:57 → BIMLAB 11-07 12:07
PROVIDERS: PCP Internal Medicine; Visit Provider Internal Medicine
DX: K52.9 Noninfective gastroenteritis and colitis, unspecified (principal); K29.70 Gastritis, unspecified, without bleeding; E03.9 Hypothyroidism, unspecified; R10.9 Unspecified abdominal pain; R19.7 Diarrhea, unspecified
CPT/HCPCS: 36415; 80053; 83630; 84443; 85025; 87506

== ENCOUNTER → 2019-12-26 12:04 | Outpatient (CLI) | payer MEDICARE, SELFPAY ==
[2019-12-13 08:48] VITALS: BMI 24.2
[2019-12-26 15:37] LABS: Absolute Lymphocyte Count 1.44 X10^3/uL (0.83-4.51); Absolute Neutrophil Count 5.2 X10^3/uL (2.0-7.7); Basophil# 0.04 X10^3/uL; Basophil% 0.5 % (0-1); Eosinophil# 0.11 X10^3/uL; Eosinophils% 1.5 % (0-5); Hemoglobin 13.5 g/dL (12.0-15.0); Lymphocyte # 1.44 X10^3/ul (4.0); Lymphocyte % 19.3 % (19-41); Mean Corp Hgb Conc 31.4 g/dL (32-36); Mean Corpuscular Hgb 27.3 pg (27.0-32.0); Mean Corpuscular Volume 86.9 fL (81-99); Mean Platelet Vol. 11.8 fl (6.2-12.0); Monocyte# 0.61 X10^3/uL; Monocyte% 8.2 % (0-10); NRBC Flagged by Analyzer 0 % (0-5); Neutrophil # 5.23 X10^3/uL (2.7-7.7); Neutrophil % 70.2 % (47-70); Platelet Count 220 K/mm3 (150-450); RBC Distribution Width CV 15.7 % (11.6-14.6); RBC Distribution Width SD 49.2 fl (35.1-43.9); Red Blood Count 4.95 M/mm3 (4.2-5.4); White Blood Count 7.5 K/mm3 (4.4-11.0)
[2019-12-26 15:49] LABS: Erythrocyte Sedimentation Rate 9 mm/hr (0-30)
[2019-12-26 16:20] LABS: ALB/GLOB Ratio 0.9 RATIO (0.9-2.4); AST(SGOT) 15 U/L (15-37); Alanine Aminotransfer ALT/SGPT 11 U/L (13-56); Albumin, Serum 3.4 g/dL (3.2-5.0); Alkaline Phosphatase 97 U/L (45-117); Anion Gap 5 (5-15); BUN 23 mg/dL (7-18); BUN/Creat Ratio 25.3 RATIO (10-20); CRP 5.08 mg/L (0.0-3.0); Calcium,Total 9.3 mg/dL (8.5-10.1); Chloride 108 mmol/L (98-107); Creatinine, Serum 0.91 mg/dL (0.55-1.02); EST Glomerular Filtration Rate 63 mL/min (>60); Est Glom Filt Rate - Afr Amer 76 mL/min (>60); Globulin 3.7 g/dL (2.2-4.2); Glucose 90 mg/dL (74-106); Potassium 3.4 mmol/L (3.5-5.1); Protein, Total 7.1 g/dL (6.4-8.2); Rheumatoid Factor < 10.0 IU/mL (<15); Sodium Level 144 mmol/L (136-145)
[2019-12-27 09:09] LABS: Hepatitis B Surface Antibody Non-Reactive; Hepatitis B Surface Antigen Non-Reactive (Nonreactive); Hepatitis C Antibody Non-Reactive (Nonreactive)
[2019-12-28 18:55] LABS: ANTINUCLEAR ANTIBODIES DIRECT Negative (Negative)
[2019-12-30 01:12] LABS: CCP IgG Antibodies 10 units (0-19); Hepatitis B Core AB IgM Negative (Negative)
== END ==
PROVIDERS: PCP Internal Medicine; Referring Provider Internal Medicine Rheumatology; Visit Provider Internal Medicine Rheumatology
DX: M06.4 Inflammatory polyarthropathy (principal); M19.041 Primary osteoarthritis, right hand; M47.897 Other spondylosis, lumbosacral region; M17.0 Bilateral primary osteoarthritis of knee
CPT/HCPCS: 36415; 80053; 85025; 85652; 86038; 86140; 86200; 86431; 86705; 86706; 86803; 87340

== ENCOUNTER → 2020-02-06 10:39 | Outpatient (CLI) | payer MEDICARE, SELFPAY ==
[2020-01-31 15:19] VITALS: BMI 24.2
[2020-02-06 12:34] LABS: Absolute Lymphocyte Count 2.05 X10^3/uL (0.83-4.51); Absolute Neutrophil Count 7.3 X10^3/uL (2.0-7.7); Basophil# 0.05 X10^3/uL; Basophil% 0.5 % (0-1); Eosinophil# 0.19 X10^3/uL; Eosinophils% 1.8 % (0-5); Hematocrit 42.8 % (37-47); Hemoglobin 13.2 g/dL (12.0-15.0); Lymphocyte # 2.05 X10^3/ul (4.0); Lymphocyte % 19.9 % (19-41); Mean Corp Hgb Conc 30.8 g/dL (32-36); Mean Corpuscular Volume 87.7 fL (81-99); Mean Platelet Vol. 10.8 fl (6.2-12.0); Monocyte# 0.69 X10^3/uL; Monocyte% 6.7 % (0-10); NRBC Flagged by Analyzer 0 % (0-5); Neutrophil # 7.29 X10^3/uL (2.7-7.7); Neutrophil % 70.7 % (47-70); Platelet Count 268 K/mm3 (150-450); RBC Distribution Width SD 54.6 fl (35.1-43.9); Red Blood Count 4.88 M/mm3 (4.2-5.4); White Blood Count 10.3 K/mm3 (4.4-11.0)
[2020-02-06 13:05] LABS: ALB/GLOB Ratio 0.9 RATIO (0.9-2.4); AST(SGOT) 13 U/L (15-37); Alanine Aminotransfer ALT/SGPT 14 U/L (13-56); Albumin, Serum 3.4 g/dL (3.2-5.0); Alkaline Phosphatase 98 U/L (45-117); Anion Gap 4 (5-15); BUN 34 mg/dL (7-18); BUN/Creat Ratio 28.3 RATIO (10-20); Calcium,Total 9.2 mg/dL (8.5-10.1); Chloride 108 mmol/L (98-107); EST Glomerular Filtration Rate 46 mL/min (>60); Est Glom Filt Rate - Afr Amer 55 mL/min (>60); Globulin 3.6 g/dL (2.2-4.2); Glucose 96 mg/dL (74-106); Potassium 4.6 mmol/L (3.5-5.1); Sodium Level 141 mmol/L (136-145)
== END ==
PROVIDERS: PCP Internal Medicine; Referring Provider Internal Medicine Rheumatology; Visit Provider Internal Medicine Rheumatology
DX: M06.4 Inflammatory polyarthropathy (principal); M19.041 Primary osteoarthritis, right hand; M47.897 Other spondylosis, lumbosacral region; M17.0 Bilateral primary osteoarthritis of knee; K21.9 Gastro-esophageal reflux disease without esophagitis; E89.0 Postprocedural hypothyroidism; I25.10 Atherosclerotic heart disease of native coronary artery without angina pectoris; I10 Essential (primary) hypertension; E78.5 Hyperlipidemia, unspecified; I87.2 Venous insufficiency (chronic) (peripheral); Z85.3 Personal history of malignant neoplasm of breast; Z79.899 Other long term (current) drug therapy
CPT/HCPCS: 36415; 80053; 85025

== ENCOUNTER → 2020-03-31 12:34 | Outpatient (CLI) | payer MEDICARE, SELFPAY ==
[2020-01-31 15:19] VITALS: BMI 24.2
[2020-03-31 16:01] LABS: Absolute Lymphocyte Count 1.85 X10^3/uL (0.83-4.51); Basophil# 0.03 X10^3/uL; Basophil% 0.3 % (0-1); Eosinophil# 0.04 X10^3/uL; Eosinophils% 0.4 % (0-5); Hematocrit 44.9 % (37-47); Hemoglobin 13.9 g/dL (12.0-15.0); Lymphocyte # 1.85 X10^3/ul (4.0); Lymphocyte % 18.4 % (19-41); Mean Corpuscular Hgb 26.3 pg (27.0-32.0); Mean Platelet Vol. 11.4 fl (6.2-12.0); Monocyte# 1.09 X10^3/uL; Monocyte% 10.8 % (0-10); NRBC Flagged by Analyzer 0 % (0-5); Neutrophil # 7.04 X10^3/uL (2.7-7.7); Neutrophil % 69.8 % (47-70); Platelet Count 347 K/mm3 (150-450); RBC Distribution Width CV 17.1 % (11.6-14.6); RBC Distribution Width SD 52.8 fl (35.1-43.9); Red Blood Count 5.28 M/mm3 (4.2-5.4); White Blood Count 10.1 K/mm3 (4.4-11.0)
[2020-03-31 16:17] LABS: AST(SGOT) 14 U/L (15-37); Alanine Aminotransfer ALT/SGPT 15 U/L (13-56); Albumin, Serum 3.7 g/dL (3.2-5.0); Alkaline Phosphatase 85 U/L (45-117); Anion Gap 4 (5-15); BUN 17 mg/dL (7-18); BUN/Creat Ratio 17.8 RATIO (10-20); Calcium,Total 9.2 mg/dL (8.5-10.1); Chloride 103 mmol/L (98-107); Creatinine, Serum 0.96 mg/dL (0.55-1.02); EST Glomerular Filtration Rate 59 mL/min (>60); Est Glom Filt Rate - Afr Amer 72 mL/min (>60); Globulin 3.6 g/dL (2.2-4.2); Glucose 84 mg/dL (74-106); Protein, Total 7.3 g/dL (6.4-8.2); Sodium Level 141 mmol/L (136-145)
== END ==
PROVIDERS: PCP Internal Medicine; Referring Provider Internal Medicine Rheumatology; Visit Provider Internal Medicine Rheumatology
DX: M06.4 Inflammatory polyarthropathy (principal); M19.041 Primary osteoarthritis, right hand; M47.897 Other spondylosis, lumbosacral region; M17.0 Bilateral primary osteoarthritis of knee; K21.9 Gastro-esophageal reflux disease without esophagitis; E89.0 Postprocedural hypothyroidism; I25.10 Atherosclerotic heart disease of native coronary artery without angina pectoris; I10 Essential (primary) hypertension; E78.5 Hyperlipidemia, unspecified; I87.2 Venous insufficiency (chronic) (peripheral); Z85.3 Personal history of malignant neoplasm of breast; Z79.899 Other long term (current) drug therapy
CPT/HCPCS: 36415; 80053; 85025

== ENCOUNTER → 2020-05-14 16:54 | Outpatient (CLI) | payer MEDICARE, SELFPAY ==
[2020-05-06 15:27] VITALS: BMI 22.3
--- NOTE | 2020-05-14 16:59 | CT_ITS ---
STUDY: CT ABDOMEN AND PELVIS WITH AND WITHOUT CONTRAST REASON FOR EXAM: Female, 80 years old. MICROHEMATURIA X 3 MONTHS, DOUBLE MASTECTOMY W/ IMPLANTS, CHOLECYSTECTOMY, PARTIAL HYSTERECTOMY RADIATION DOSAGE (If Supplied By Facility): CTDIvol = ( 11.00 ) mGy, DLP = ( 1775.86 ) mGycm TECHNIQUE: Transaxial images were obtained from the dome of the diaphragm to the symphysis pubis without oral contrast. IV 100mL Isovue-300 was administered. Sagittal and coronal images were reconstructed. Individualized dose optimization techniques were used for this CT. COMPARISON: None. FINDINGS: The visualized lung bases are unremarkable. The visualized portions of the heart are within normal limits. Bilateral breast implants are identified. Normal liver. Gallbladder is surgical absent with expected mild biliary dilation following cholecystectomy. Normal spleen. Normal pancreas. Normal bilateral adrenal glands. Normal right kidney. Normal left kidney. Normal visualized stomach. Normal small intestine. Portions of the colon are not well distended but no definitive colon wall thickening. There is non-visualization of the appendix. There is diffuse atherosclerotic calcification of the abdominal aorta, without a demonstrated aneurysm. Normal inferior vena cava. Normal retroperitoneum. Localized wall thickening and mucosal enhancement of the right posterolateral bladder wall (adjacent to the UVJ) is seen on image 90 of series 2 and series 5 with area of localized wall thickening measuring up to 7 mm in thickness and approximately 2.1 cm in length. There is absence of the uterus consistent with a prior hysterectomy. Normal abdominal wall. There are degenerative and operative changes of the lumbosacral spine. CT/CT Abd/Pelvis W/WO Contrast IMPRESSION: 1. 0.7 x 2.1 cm localized wall thickening and mucosal enhancement of the right posterolateral urinary bladder. Differential considerations include localized cystitis and neoplasm. Correlation with urinalysis and potential cystoscopy recommended. Electronically Signed: Devyn Lind MD ([place]) at 11:01 EDT , Service support ,
[2020-05-14 17:15] LABS: CREATININE FINGERSTICK 0.9 mg/dL (0.55-1.02)
== END ==
PROVIDERS: PCP Internal Medicine; Referring Provider Urology; Visit Provider Urology
DX: R31.29 Other microscopic hematuria (principal)
CPT/HCPCS: 74178; Q9967

== ENCOUNTER → 2020-05-22 17:50 | Outpatient (CLI) | payer MEDICARE, SELFPAY ==
[2020-05-06 15:27] VITALS: BMI 22.3
--- NOTE | 2020-05-22 | FLU_PTH ---
PATIENT: JUAN CARLOS XIAO LOC: [facility] U#:[id number] AGE/SX: 85/F ROOM: RE05/22/[address]: Dr. Sarah Roldan MD : 1940 BED: DIS: SPEC #: [id number] RECD: 05/22/20 15:00 STATUS: TIMI RECharlie #: [id number] ZOLTAN: 05/22/20 00:[address]: Sarah Roldan DEPT: CYTOLOGY RECD BY: Deb Blackburn ENTERED: 05/23/20 06:45 SP TYPE: Fluid OTHR DR: Dr. Ade Mcrae MD Tissues: Urine Procedures: Special Stain Group II Cytospin Fluid HEADER OPERATION: Not noted PRE-OP DIAGNOSIS: Hematuria TISSUE SUBMITTED: Urine for cytology DIAGNOSIS CYTOLOGY Urine for cytology (cytospin): Malignant cells present derived from carcinoma. JALEN:sheila 05/23/20 COMMENT Clinical correlation and appropriate follow up are necessary. Case has been reviewed in consultation with Dr. Fitzpatrick who concurs with the above diagnosis. IDC:AM CYTOLOGY STUDY Slides are reviewed. CYTOLOGY GROSS Received is 30 ml of yellow hazy fluid labeled with the patient's name and and designated per the requisition as urine. Submitted for cytology preparation. / rg 05/23/20 TC:0 CPT: 95193
[2020-05-22 17:52] LABS: Cytology, Body Fluid / CSF SEE PATHOLOGY REPORT
== END ==
PROVIDERS: PCP Internal Medicine; Referring Provider Urology; Visit Provider Urology
DX: R31.9 Hematuria, unspecified (principal)
CPT/HCPCS: 88108; 88313

== ENCOUNTER 2020-06-06 11:37 | Day surgery (SDC) | payer MEDICARE, SELFPAY ==
[2020-05-06 15:27] VITALS: BMI 22.3
[2020-05-29 10:58] LABS: International Normalized Ratio 0.9; Prothrombin Time (Protime)PT. 11.8 SECONDS (11.7-14.9)
[2020-05-29 11:00] LABS: Partial Thromboplast Time 24.1 Seconds (24.1-36.2)
--- NOTE | 2020-05-29 11:04 | EKG12_ITS ---
Test Reason : PREOP Blood Pressure : / mmHG Vent. Rate : 056 BPM Atrial Rate : 056 BPM P-R Int : 130 ms QRS Dur : 088 ms QT Int : 414 ms P-R-T Axes : 028 025 045 degrees QTc Int : 399 ms Sinus bradycardia Inferior infarct , age undetermined Anterior infarct , age undetermined Abnormal ECG Confirmed by OC PHILLIPS, MEGAN ([id number]), senior technical editor HARRIET MICHEL ([id number]) on 06/02/2020 1:01:27 PM Referred By: Gilberto Constantino Confirmed By:MEGAN RENAE MD
[2020-06-06] VITALS (8 sets, daily range): BP systolic 103–145; BP diastolic 47–73; PULSE 53–61; RESP 14–18; TEMP 36.1–36.8; O2SAT 92–100; BMI 24.2
[2020-06-06] MEDS: Lactated Ringers 1,000 ML 100 ML IV (12:43)
--- NOTE | 2020-06-06 13:50 | BLA_PTH ---
PATIENT: JUAN CARLOS XIAO LOC: [facility] [place] U#:[id number] AGE/SX: 80/F ROOM: RE06/06/[address]: Dr. Gilberto Constantino MD : 1940 BED: DIS: 06/06/2020 SPEC #: [id number] RECD: 06/08/20 10:31 STATUS: TIIM RECharlie #: [id number] ZOLTAN: 06/06/20 13:[address]: Gilberto Constantino DEPT: SURGICAL PATHOLOGY RECD BY: Deb Blackburn ENTERED: 06/09/20 08:35 SP TYPE: BLADDER BX OT DR: Dr. Ade Mcrae MD Tissues: Urinary bladder, NOS Procedures: Surgery Specimen Level V HEADER OPERATION: Cysto, TUR bladder, Olympus PRE-OP DIAGNOSIS: Bladder mass TISSUE SUBMITTED: Bladder tumor MICROSCOPIC DIAGNOSIS Urinary bladder tumor, transurethral resection: Urothelial carcinoma. See synoptic report below. 06/10/20 COMMENT BLADDER CANCER (TUR) SUMMARY Procedure: Transurethral resection of bladder (TURBT) Tumor site: Bladder mass, not otherwise specified Histologic type: Urothelial carcinoma, nonpapillary Histologic grade: 3/3 (high grade) Tumor configuration: Endophytic Detrusor muscle invasion: Not identified. Lymphvascular invasion: Not identified Tumor extension: Tumor invades the lamina propria as focally noted around the smooth muscle fibers (detrusor muscle). Additional pathologic findings: Ulceration with focal tumor necrosis. The above summary is in compliance with [employer] [place] [employer] (CAP) Cancer Protocols Checklist and [place] [employer] on Cancer (AJCC), Staging Manual, 8th Ed. Reference is made to the patient's urine cytology ([id number]) which was positive for malignant cells. Case has been reviewed in consultation with Dr. Enriquez who concurs with the above diagnosis. IDC:SJ MICROSCOPIC DESCRIPTION Slides are reviewed. GROSS DESCRIPTION Received in fixative is one container labeled with the patient's name and designated bladder tumor. The specimen consists of multiple irregular fragments of covarrubias soft tissue that in aggregate measure 5 x 3 x 0.3 cm. The specimen is totally submitted in one cassette. / JALEN:sheila 06/09/20 TC:0 CPT: 12853
--- NOTE | 2020-06-06 14:24 | PCM.HP.STD ---
Problem List (1) Bladder mass Status: Acute History of Present Illness Date of Admission: 06/06/20 Chief Complaint: Bladder mass The patient is a 80 year old female who was found to have an invasive looking tumor within her bladder she does have a history of gross hematuria today were to take her to surgery to perform a transurethral resection of the tumor we suspect that this may be an invasive cancer Past Medical History Past Medical History (Chronic Problems): Chronic Problems (Last Reviewed 11/06/19 @ 08:36 by Sabrina Rick) Abdominal pain (Chronic) Abdominal aortic aneurysm without rupture (Chronic) Iron deficiency anemia (Chronic) Hot flashes (Chronic) History of smoking 30 or more pack years (Chronic) Chronic back pain (Chronic) Peripheral vascular disease (Chronic) Atherosclerotic heart disease of [place] coronary artery without angina pectoris (Chronic) History of placement of stent in LAD coronary artery (Chronic ~1995) 11/08/[address] Morgan at [facility] in [place], [place]; Essential hypertension (Chronic) Audible heartbeat in both ears (Chronic) Bilateral carotid artery stenosis (Chronic) Low back pain (Chronic) Acute anemia (Chronic) GERD (gastroesophageal reflux disease) (Chronic) Hyperlipidemia (Chronic) Hypothyroid (Chronic) Medical History: Medical History (Last Reviewed 11/06/19 @ 08:36 by Sabrina Rick) Abdominal aortic aneurysm without rupture (Chronic) I71.4 Peripheral vascular disease (Chronic) I73.9 Atherosclerotic heart disease of [place] coronary artery without angina pectoris (Chronic) I25.10 History of placement of stent in LAD coronary artery (Chronic) Onset Date: ~1995 Z95.5 11/08/[address] Morgan at [facility] in [place], [place]; Essential hypertension (Chronic) I10 Acute anemia (Chronic) D64.9 GERD (gastroesophageal reflux disease) (Chronic) K21.9 Hyperlipidemia (Chronic) E78.5 Hypothyroid (Chronic) E03.9 Breast cancer C50.919 Hypertension (Inactive) I10 Allergies cortisone Allergy (Intermediate, Verified 06/06/20 12:20) high BP, Swelling prednisone Allergy (Intermediate, Verified 06/06/20 12:20) High BP, Swelling Home Medications: Ambulatory Orders Medication Instructions Recorded aspirin 81 mg tablet,delayed 81 mg PO DAILY 03/29/18 release nitroglycerin 0.4 mg sublingual 0.4 mg SUBLINGUAL Q5-15M PRN #10 06/28/18 tablet tab furosemide 20 mg tablet 20 mg PO DAILY tab 05/01/20 hydroxychloroquine 200 mg tablet 300 mg PO DAILY tab 05/01/20 Amlodipine Besylate [Norvasc] 5 mg PO DAILY 05/29/20 Cholecalciferol (Vitamin D3) 2,000 unit PO DAILY 05/29/20 [Vitamin D3] Levothyroxine Sodium [Synthroid] 125 mcg PO DAILY 05/29/20 Metoprolol Succinate [Toprol Xl] 100 mg PO BID 05/29/20 Pentoxifylline [Trental] 400 mg PO BID 05/29/20 Pravastatin Sodium 80 mg PO QDAY 05/29/20 enalapril maleate 10 mg tablet 15 mg PO BID #180 tab 05/30/20 Sulfasalazine [Azulfidine] 1,000 mg PO BID 06/06/20 Surgical History: Surgical History (Last Reviewed 11/06/19 @ 08:36 by Sabrina Rick) Status post endovenous radiofrequency ablation (RFA) of saphenous vein (Resolved) Onset Date: ~04/13/17 Z98.890 Left 04/13/17 History of bilateral mastectomy Z90.13 History of carotid endarterectomy Onset Date: ~02/2004 Z98.890 Left History of colonoscopy Z98.890 03/07/09, 05/08/98, 09/06/89 History of esophagogastroduodenoscopy (EGD) Z98.890 03/07/09 History of hysterectomy Z90.710 Partial 1981 History of laparoscopic cholecystectomy Z90.49 07/06/91 History of orthopedic surgery Z98.890 06/09/05, back surgery History of right and left heart catheterization Z98.890 03/05/99 History of right breast biopsy Z98.890 01/04/86 Surgical History: no surgical history Smoking Status: Current every day smoker Tobacco Use: Cigarettes Review of Systems Constitutional: Denies: Chills, Fever, Weight Change HEENT: Denies: Head Aches, Sinus Congestion, Sinus Drainage Cardiovascular: Denies: Chest Pain, Palpitations Respiratory: Denies: Cough, Shortness of breath at rest, Sputum production Gastrointestinal: Denies: Abdominal Pain, Nausea, Vomiting Genitourinary: Denies: Dysuria Musculoskeletal: Denies: Joint Pain, Joint Tenderness Skin: Denies: Rash, Wounds Neurological: Denies: Numbness, Tingling, Focal weakness Psychiatric: Denies: Anxiety, Depression, Homicidal Ideations, Suicidal Ideations Hematologic/ Lymphatic: Denies: Easy Bruising, Easy Bleeding VTE Information - Inpt Only VTE Present on Admission: No VTE Mechan Device Prophylaxis: SCD's - Physical Exam Vitals/I&O's: Vital Signs Temp Pulse Resp BP Pulse Ox 97.2 F L 53 L 14 113/48 L 100 06/06/20 12:22 06/06/20 12:22 06/06/20 12:22 06/06/20 12:22 06/06/20 12:22 Oxygen Delivery Method Room Air Weight: 60 kg Body Mass Index (BMI) 24.2 General: Alert, Oriented x3, Cooperative HEENT: Atraumatic, PERRLA, EOMI, Normocephalic Neck: Supple, No JVD, Negative Carotid Bruits Lungs: Clear to auscultation, Normal air movement Cardiovascular: Regular rate, No murmurs Abdomen: Bowel Sounds Present, Soft, Non Tender Extremities: No edema, Capillary Refill Less than 3 Seconds Skin: No rashes, No breakdown Musculoskeletal: No Tenderness to Palpation of Joints or Extremities Neurological: Cranial nerves II-XII grossly intact Psych/Mental Status: Normal Affect, Appropriate Current Medications Lactated Ringer's () 1,000 mls @ 100 mls/hr IV .Q10H [place] Last Admin: 06/06/20 12:43 Dose: 100 mls/hr Documented by: Assessment/Plan All Active Problems (Last Reviewed 11/06/19 @ 08:36 by Sabrina Rick) Bladder mass (Acute) 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
[2020-06-06] MEDS: Cefazolin 2 GM in 0.9% Normal Saline 100 ML IV (14:26)
--- NOTE | 2020-06-06 14:29 | DCINST_ITS ---
Discharge Activity: May not drive while taking narcotic pain medications. Call your doctor if your incision/area has: Continuous Slow Oozing, Sudden Increased Bleeding, Increased Pain/ Swelling, Increased Redness, Foul Smelling Discharge, Swelling at the incision site Call your doctor if you observe: Fever of 101 or Higher Suture Line Care: Avoid Pulling/Pushing, Avoid Pinching/Bending Allergies/Adverse Reactions: Allergies cortisone Allergy (Intermediate, Verified 06/06/20 12:20) high BP, Swelling prednisone Allergy (Intermediate, Verified 06/06/20 12:20) High BP, Swelling Medications to take at Discharge aspirin 81 mg tablet,delayed release 81 mg PO DAILY 03/29/18 nitroglycerin 0.4 mg sublingual tablet 0.4 mg SUBLINGUAL Q5-15M PRN #10 tab 06/28/18 furosemide 20 mg tablet 20 mg PO DAILY tab 05/01/20 hydroxychloroquine 200 mg tablet 300 mg PO DAILY tab 05/01/20 Amlodipine Besylate [Norvasc] 5 mg PO DAILY 05/29/20 Cholecalciferol (Vitamin D3) [Vitamin D3] 2,000 unit PO DAILY 05/29/20 Levothyroxine Sodium [Synthroid] 125 mcg PO DAILY 05/29/20 Metoprolol Succinate [Toprol Xl] 100 mg PO BID 05/29/20 Pentoxifylline [Trental] 400 mg PO BID 05/29/20 Pravastatin Sodium 80 mg PO QDAY 05/29/20 enalapril maleate 10 mg tablet 15 mg PO BID #180 tab 05/30/20 Ciprofloxacin [Cipro] 500 mg PO BID #6 tab 06/06/20 Hydrocodone/Acetaminophen [[place] 5-325 Tablet] 1 each PO Q4H PRN PRN 5 Days #14 tablet 06/06/20 Sulfasalazine [Azulfidine] 1,000 mg PO BID 06/06/20 The following prescriptions were given: Ciprofloxacin [Cipro] 500 mg PO BID #6 tab Transmission Status: Pending to [address] Hydrocodone/Acetaminophen [[place]eds 5-325 Tablet] 1 each PO Q4H PRN PRN 5 Days #14 tablet PRN Reason: Pain Score 1-10 Transmission Status: Received by [address] Primary Care Physician: Ade Mcrae MD [Primary Care Provider] - Test Results: Test results from this visit will be discussed in further detail at your follow- up appointment, if applicable. Please Follow Up With: Gilberto Constantino MD - [phone] When: please call to make an appointment- 10 days
--- NOTE | 2020-06-06 14:52 | PCM.OPRPT ---
Problem List (1) Bladder mass Status: Acute Report of Operation Date of Procedure: 06/06/20 Pre-Operative Diagnosis: Invasive bladder tumor right lateral wall Post-Operative Diagnosis: Same Surgery/Procedure Performed:: Transurethral resection of a large bladder tumor. Invasive Description of Surgical Findings:: 80-year-old female taken back to the operating room at the smooth induction of anesthesia she was placed in dorsolithotomy position. The urethra vaginally are prepped and draped in usual sterile fashion. I went into the bladder with a 24 Tamazight resectoscope. On inspection she had a normal left ureteral orifice trigone is normal but then off to the right side there was a mounded looking mass that was appeared invasive on the right side of the bladder it was covering over the right ureteral orifice I started resecting the mass at the right edge resected across was deep into the muscle and came across the ureteral orifice I resected the ureteral orifice until it was open and clear and patent kept resecting until I got across the whole mass and then the tissue was sent off I then cauterized the resection site extensively there was no active bleeding the bladder was drained and all the resection chips were then handed off as a specimen appeared to be invasive bladder tumor on resection. Then after resection was completed patient acetic was reversed and she is taken back condition she will follow-up in about a week to review the pathology. Type of Anesthesia:: General Drains: none - Admit VTE Documentation VTE Present on Admission: No VTE Mechan Device Prophylaxis: SCD's
== END 2020-06-06 17:18 | disposition home or self-care (01) ==
LOC: SDC 11:40 → AC 11:42
PROVIDERS: Anesthesiology; PCP Internal Medicine; Referring Provider Urology; Visit Provider Urology
PROC: 0TBB8ZZ Excision of Bladder, Via Natural or Artificial Opening Endoscopic (ICD-10-PCS; CPT 52240; principal; 2020-06-06 13:40)
DX: C67.2 Malignant neoplasm of lateral wall of bladder (principal); Z20.828 Contact with and (suspected) exposure to other viral communicable diseases; I73.9 Peripheral vascular disease, unspecified; K21.9 Gastro-esophageal reflux disease without esophagitis; E78.5 Hyperlipidemia, unspecified; E03.9 Hypothyroidism, unspecified; I10 Essential (primary) hypertension; I25.10 Atherosclerotic heart disease of native coronary artery without angina pectoris; B37.3 Candidiasis of vulva and vagina; F17.210 Nicotine dependence, cigarettes, uncomplicated; Z79.899 Other long term (current) drug therapy; Z79.82 Long term (current) use of aspirin; Z85.3 Personal history of malignant neoplasm of breast; Z87.19 Personal history of other diseases of the digestive system; Z86.2 Personal history of diseases of the blood and blood-forming organs and certain disorders involving the immune mechanism; M06.9 Rheumatoid arthritis, unspecified
CPT/HCPCS: 00912; 52240; 36415; 84443; 85610; 85730; 87635; 88305; 88307; 93005; C9803; J7120; J2310; J2405; U0003

== ENCOUNTER 2020-07-09 05:52 | Day surgery (SDC) | payer MEDICARE, SELFPAY ==
[2020-06-25 10:48] VITALS: BMI 23.9
[2020-07-07 14:38] LABS: Hematocrit 46.3 % (37-47); Hemoglobin 14.1 g/dL (12.0-15.0); Mean Corp Hgb Conc 30.5 g/dL (32-36); Mean Corpuscular Hgb 26.1 pg (27.0-32.0); Mean Corpuscular Volume 85.6 fL (81-99); Mean Platelet Vol. 10.8 fl (6.2-12.0); Platelet Count 277 K/mm3 (150-450); RBC Distribution Width CV 16.3 % (11.6-14.6); RBC Distribution Width SD 50.9 fl (35.1-43.9); Red Blood Count 5.41 M/mm3 (4.2-5.4); White Blood Count 7.4 K/mm3 (4.4-11.0)
[2020-07-07 15:55] LABS: Anion Gap 5 (5-15); BUN 9 mg/dL (7-18); BUN/Creat Ratio 10.1 RATIO (10-20); Calcium,Total 9.6 mg/dL (8.5-10.1); Chloride 105 mmol/L (98-107); Creatinine, Serum 0.89 mg/dL (0.55-1.02); EST Glomerular Filtration Rate 64 mL/min (>60); Est Glom Filt Rate - Afr Amer 78 mL/min (>60); Glucose 87 mg/dL (74-106); Potassium 3.8 mmol/L (3.5-5.1); Sodium Level 142 mmol/L (136-145)
[2020-07-09 06:20] VITALS: BP 142/66; PULSE 54; RESP 12; TEMP 36.1; O2SAT 98; BMI 23.4
[2020-07-09] MEDS: Cefazolin 2 GM in 0.9% Normal Saline 100 ML IV (07:27)
--- NOTE | 2020-07-09 07:29 | PCM.HP.STD ---
Problem List (1) Bladder cancer Status: Acute Qualifiers: Bladder location: lateral wall Qualified Code(s): C67.2 - Malignant neoplasm of lateral wall of bladder History of Present Illness Date of Admission: 07/09/20 Chief Complaint: Invasive bladder cancer The patient is a 80 year old female who has invasive bladder cancer she underwent her initial resection she saw oncology and also radiation oncology they recommended a further reresection to make sure all visible tumor was resected, so can take the patient back for reresection of the bladder and get a deeper resection hopefully get her clear I still think she has invasive cancer and will benefit from chemo and radiation to sure that we get all the cancer. Past Medical History Past Medical History (Chronic Problems): Chronic Problems (Last Reviewed 06/25/20 @ 10:39 by Allegra Fierro) Abdominal pain (Chronic) Abdominal aortic aneurysm without rupture (Chronic) Iron deficiency anemia (Chronic) Hot flashes (Chronic) History of smoking 30 or more pack years (Chronic) Chronic back pain (Chronic) Peripheral vascular disease (Chronic) Atherosclerotic heart disease of [place] coronary artery without angina pectoris (Chronic) History of placement of stent in LAD coronary artery (Chronic ~1995) 11/08/[address] Morgan at [facility] in [place], [place]; Essential hypertension (Chronic) Audible heartbeat in both ears (Chronic) Bilateral carotid artery stenosis (Chronic) Low back pain (Chronic) Acute anemia (Chronic) GERD (gastroesophageal reflux disease) (Chronic) Hyperlipidemia (Chronic) Hypothyroid (Chronic) Medical History: Medical History (Last Reviewed 07/09/20 @ 07:[address] Gilberto Constantino MD) Abdominal aortic aneurysm without rupture (Chronic) I71.4 Peripheral vascular disease (Chronic) I73.9 Atherosclerotic heart disease of [place] coronary artery without angina pectoris (Chronic) I25.10 History of placement of stent in LAD coronary artery (Chronic) Onset Date: ~1995 Z95.5 11/08/[address] Morgan at [facility] in [place], [place]; Essential hypertension (Chronic) I10 Acute anemia (Chronic) D64.9 GERD (gastroesophageal reflux disease) (Chronic) K21.9 Hyperlipidemia (Chronic) E78.5 Hypothyroid (Chronic) E03.9 Breast cancer C50.919 Hypertension (Inactive) I10 Allergies cortisone Allergy (Intermediate, Verified 07/09/20 06:04) high BP, Swelling prednisone Allergy (Intermediate, Verified 07/09/20 06:04) High BP, Swelling Home Medications: Ambulatory Orders Medication Instructions Recorded aspirin 81 mg tablet,delayed 81 mg PO DAILY 03/29/18 release nitroglycerin 0.4 mg sublingual 0.4 mg SUBLINGUAL Q5-15M PRN #10 06/28/18 tablet tab furosemide 20 mg tablet 20 mg PO DAILY tab 05/01/20 hydroxychloroquine 200 mg tablet 300 mg PO DAILY tab 05/01/20 Amlodipine Besylate [Norvasc] 5 mg PO DAILY 05/29/20 Cholecalciferol (Vitamin D3) 2,000 unit PO DAILY 05/29/20 [Vitamin D3] Levothyroxine Sodium [Synthroid] 125 mcg PO DAILY 05/29/20 Metoprolol Succinate [Toprol Xl] 100 mg PO BID 05/29/20 Pentoxifylline [Trental] 400 mg PO BID 05/29/20 Pravastatin Sodium 80 mg PO QDAY 05/29/20 Sulfasalazine [Azulfidine] 1,000 mg PO BID 06/06/20 enalapril maleate 10 mg tablet 15 mg PO BID 14 Days #42 tab 06/11/20 Surgical History: Surgical History (Last Reviewed 06/25/20 @ 10:39 by Allegra Fierro) Status post endovenous radiofrequency ablation (RFA) of saphenous vein (Resolved) Onset Date: ~04/13/17 Z98.890 Left 04/13/17 History of bilateral mastectomy Z90.13 History of carotid endarterectomy Onset Date: ~02/2004 Z98.890 Left History of colonoscopy Z98.890 03/07/09, 05/08/98, 09/06/89 History of esophagogastroduodenoscopy (EGD) Z98.890 03/07/09 History of hysterectomy Z90.710 Partial 1981 History of laparoscopic cholecystectomy Z90.49 07/06/91 History of orthopedic surgery Z98.890 06/09/05, back surgery History of right and left heart catheterization Z98.890 03/05/99 History of right breast biopsy Z98.890 01/04/86 Surgical History: no surgical history Smoking Status: Current every day smoker Tobacco Use: Cigarettes Review of Systems Constitutional: Denies: Chills, Fever, Weight Change HEENT: Denies: Head Aches, Sinus Congestion, Sinus Drainage Cardiovascular: Denies: Chest Pain, Palpitations Respiratory: Denies: Cough, Shortness of breath at rest, Sputum production Gastrointestinal: Denies: Abdominal Pain, Nausea, Vomiting Genitourinary: Denies: Dysuria Musculoskeletal: Denies: Joint Pain, Joint Tenderness Skin: Denies: Rash, Wounds Neurological: Denies: Numbness, Tingling, Focal weakness Psychiatric: Denies: Anxiety, Depression, Homicidal Ideations, Suicidal Ideations Hematologic/ Lymphatic: Denies: Easy Bruising, Easy Bleeding VTE Information - Inpt Only VTE Present on Admission: No VTE Mechan Device Prophylaxis: SCD's - Physical Exam Vitals/I&O's: Vital Signs Temp Pulse Resp BP Pulse Ox 96.9 F L 54 L 12 142/66 H 98 07/09/20 06:20 07/09/20 06:20 07/09/20 06:20 07/09/20 06:20 07/09/20 06:20 Oxygen Delivery Method Room Air Weight: 60.1 kg Body Mass Index (BMI) 23.4 General: Alert, Oriented x3, Cooperative HEENT: Atraumatic, PERRLA, EOMI, Normocephalic Neck: Supple, No JVD, Negative Carotid Bruits Lungs: Clear to auscultation, Normal air movement Cardiovascular: Regular rate, No murmurs Abdomen: Bowel Sounds Present, Soft, Non Tender Extremities: No edema, Capillary Refill Less than 3 Seconds Skin: No rashes, No breakdown Musculoskeletal: No Tenderness to Palpation of Joints or Extremities Neurological: Cranial nerves II-XII grossly intact Psych/Mental Status: Normal Affect, Appropriate Microbiology Past 72 Hours 07/07/20 15:18 Interface Orders SARS-CoV-2 Antigen (Rapid) - Final Current Medications Cefazolin Sodium 2 gm/ Sodium (Chloride) 110 mls @ 150 mls/hr IV PREOP ONE Stop: 07/09/20 07:43 Assessment/Plan All Active Problems (Last Reviewed 06/25/20 @ 10:39 by Allegra Fierro) Bladder mass (Acute) Bladder cancer (Acute) Spondylosis of lumbar region without myelopathy or radiculopathy (Acute) Spondylosis of lumbar region without myelopathy or radiculopathy (Acute) Painful urination (Acute) Status post endovenous radiofrequency ablation (RFA) of saphenous vein (Resolved ~04/13/17) Upper respiratory tract infection (Acute) Vaginitis due to Maggie (Acute) 80-year-old female with invasive bladder cancer plan to do a reresection. And then she will proceed for chemoradiation after this.
--- NOTE | 2020-07-09 07:30 | BLB_PTH ---
PATIENT: JUAN CARLOS XIAO [place] [facility] [place][id number] AGE/SX: 80/F ROOM: RE07/09/[address]: Dr. Gilberto Constantino MD : 1940 BED: DIS: 07/09/2020 SPEC #: [id number] RECD: 07/09/20 09:51 STATUS: TIMI RECharlie #: [id number] ZOLTAN: 07/09/20 07:[address]: Gilberto Constantino DEPT: SURGICAL PATHOLOGY RECD BY: Trinity Hernandez ENTERED: 07/09/20 12:40 SP TYPE: TURB OTHR DR: Dr. Ade Mcrae MD Tissues: Urinary bladder, NOS Procedures: Surgery Specimen Level V HEADER OPERATION: Cysto, transurethral resection bladder, Olympus PRE-OP DIAGNOSIS: Malignant neoplasm bladder wall TISSUE SUBMITTED: Bladder tumor MICROSCOPIC DIAGNOSIS Urinary bladder tumor, transurethral resection: Urothelial carcinoma. See cancer checklist below. AM:sheila 07/10/20 COMMENT BLADDER CANCER (TUR) SUMMARY Procedure: Transurethral resection of bladder (TURBT) Tumor site: Not specified Histologic type: Urothelial carcinoma (nonpapillary) Histologic grade: 3/3 (WHO high grade) Tumor configuration: Nonpapillary Muscularis propria: Present and free of tumor. Lymphvascular invasion: Not identified Tumor extension: Tumor invades lamina propria. Additional pathologic findings: Chronic inflammation and benign histiocytic reaction. The above summary is in compliance with [employer] [place] [employer] (CAP) Cancer Protocols Checklist and [place] Joint Committee on Cancer (AJCC), Staging Manual, 8th Ed. Reference is made to the patient's previous urinary bladder TUR ([id number]) in which high-grade urothelial carcinoma was identified. Case has been reviewed in consultation with Dr. Enriquez who concurs with the above diagnosis. IDC:SJ MICROSCOPIC DESCRIPTION Slides are reviewed. GROSS DESCRIPTION Received in fixative is one container labeled with the patient's name and designated bladder tumor. The specimen consists of multiple rubbery fragments of covarrubias tissue that in aggregate measure 2.5 x 2 x 0.2 cm. The specimen is totally submitted in one cassette. / AM:sheila 07/09/20 TC:0 CPT: 79712
--- NOTE | 2020-07-09 07:34 | DCINST_ITS ---
Discharge Diet: Light diet - advance as tolerated Discharge Activity: Return to Normal Activity Call your doctor if your incision/area has: Sudden Increased Bleeding Call your doctor if you observe: Fever of 101 or Higher Suture Line Care: Avoid Pulling/Pushing, Avoid Pinching/Bending Allergies/Adverse Reactions: Allergies cortisone Allergy (Intermediate, Verified 07/09/20 06:04) high BP, Swelling prednisone Allergy (Intermediate, Verified 07/09/20 06:04) High BP, Swelling Medications to take at Discharge aspirin 81 mg tablet,delayed release 81 mg PO DAILY 03/29/18 nitroglycerin 0.4 mg sublingual tablet 0.4 mg SUBLINGUAL Q5-15M PRN #10 tab 06/28/18 furosemide 20 mg tablet 20 mg PO DAILY tab 05/01/20 hydroxychloroquine 200 mg tablet 300 mg PO DAILY tab 05/01/20 Amlodipine Besylate [Norvasc] 5 mg PO DAILY 05/29/20 Cholecalciferol (Vitamin D3) [Vitamin D3] 2,000 unit PO DAILY 05/29/20 Levothyroxine Sodium [Synthroid] 125 mcg PO DAILY 05/29/20 Metoprolol Succinate [Toprol Xl] 100 mg PO BID 05/29/20 Pentoxifylline [Trental] 400 mg PO BID 05/29/20 Pravastatin Sodium 80 mg PO QDAY 05/29/20 Sulfasalazine [Azulfidine] 1,000 mg PO BID 06/06/20 enalapril maleate 10 mg tablet 15 mg PO BID 14 Days #42 tab 06/11/20 Ciprofloxacin [Cipro] 500 mg PO BID #10 tab 07/09/20 Hydrocodone/Acetaminophen [[place] 5-325 Tablet] 1 each PO Q4H PRN PRN #10 tablet 07/09/20 The following prescriptions were given: Ciprofloxacin [Cipro] 500 mg PO BID #10 tab Transmission Status: Pending to [address] Hydrocodone/Acetaminophen [[place] 5-325 Tablet] 1 each PO Q4H PRN PRN #10 tablet PRN Reason: Pain 1-10 Or Fever Transmission Status: Received by [address] Primary Care Physician: Ade Mcrae MD [Primary Care Provider] - Test Results: Test results from this visit will be discussed in further detail at your follow- up appointment, if applicable. Please Follow Up With: Gilberto Constantino MD - [phone] When: please call to make an appointment.
[2020-07-09] MEDS: Lubricating Jelly 60 GM Tube 30 GM TOPICAL (07:40)
[2020-07-09] MEDS: Lactated Ringers 1,000 ML 75 ML IV (07:45)
--- NOTE | 2020-07-09 08:03 | PCM.OPRPT ---
Problem List (1) Bladder cancer Status: Acute Qualifiers: Bladder location: lateral wall Qualified Code(s): C67.2 - Malignant neoplasm of lateral wall of bladder Report of Operation Date of Procedure: 07/09/20 Pre-Operative Diagnosis: Bladder cancer Post-Operative Diagnosis: Same Surgery/Procedure Performed:: Transurethral resection of the bladder, large resection. Description of Surgical Findings:: 80-year-old female who underwent resection of an invasive looking cancer few weeks ago she was sent to oncology for an opinion for chemoradiation and she was sent back for reresection to make sure all visible cancer was resected which is reasonable therefore we can take the patient back today for reresection of the original resection. Is to be a large resection large area on the right side of the bladder and it also was involving the right ureteral orifice. Patient was taken back to the operating room after smooth induction of general anesthesia she was placed in dorsolithotomy position. The urethra and vaginal area were prepped and draped in usual sterile fashion. I went into the bladder with a 24 [place] noncontinuous flow Olympus bipolar resectoscope. I used a small angled loop. I first identified the ureteral orifice which been resected from the prior resection I could see tumor still evident on the edges of resection and tumor looking tissue still on the resection site I then started inferiorly and took a whole pancake off the resection I went down to the fat and muscle posteriorly went down to the fat muscle medial the resection went across the ureteral orifice again but the orifice was clear and open and then resected all the way up the lateral wall lots of tissue was removed total aggregate about 4 5 cm of tissue. A long slivers to do further check on invasive cancer did look like invasive cancer I got down to the fat and through the bladder and some small areas. Cauterized and there was no signs of bleeding. I did not give topical mitomycin-C since this look like invasive cancer. After this resection will review the tissue report but I think the patient will need chemoradiation to definitively treat her cancer I do not think that this resection will be adequate in order to treat her of her cancer. She understood this prior to surgery they were just doing a reresection but I do not think that I can rid of all the cancer with a resection and will plan for chemoradiation to follow. Type of Anesthesia:: General Drains: none - Admit VTE Documentation VTE Present on Admission: No VTE Mechan Device Prophylaxis: SCD's
[2020-07-09 08:06] VITALS: BP 141/59; BP 142/66; PULSE 65; RESP 12; TEMP 35.8; O2SAT 99
[2020-07-09 08:15] VITALS: BP 142/66; BP 152/69; PULSE 65; RESP 18; O2SAT 98
[2020-07-09 08:27] VITALS: BP 142/66; BP 163/56; PULSE 62; RESP 18; TEMP 36.1; O2SAT 99
[2020-07-09] MEDS: Ketorolac 15 MG/ML Vial IV (08:43)
[2020-07-09] MEDS: oxyCODONE 5 MG Tablet PO (09:22)
[2020-07-09 09:29] VITALS: BP 116/92; BP 142/66; PULSE 57; RESP 18; TEMP 36.7; O2SAT 99
== END 2020-07-09 09:39 | disposition home or self-care (01) ==
LOC: SDC 05:52 → AC 05:52
PROVIDERS: Anesthesiology; PCP Internal Medicine; Referring Provider Urology; Visit Provider Urology
PROC: 0TBB8ZZ Excision of Bladder, Via Natural or Artificial Opening Endoscopic (ICD-10-PCS; CPT 52240; principal; 2020-07-09 07:20)
DX: C67.2 Malignant neoplasm of lateral wall of bladder (principal); K21.9 Gastro-esophageal reflux disease without esophagitis; I10 Essential (primary) hypertension; I73.9 Peripheral vascular disease, unspecified; E78.5 Hyperlipidemia, unspecified; F17.210 Nicotine dependence, cigarettes, uncomplicated; D50.9 Iron deficiency anemia, unspecified; E03.9 Hypothyroidism, unspecified; I25.10 Atherosclerotic heart disease of native coronary artery without angina pectoris; Z79.899 Other long term (current) drug therapy; Z85.3 Personal history of malignant neoplasm of breast; Z79.82 Long term (current) use of aspirin
CPT/HCPCS: 00912; 52240; 36415; 80048; 85027; 87426; 88307; C9803; J7120; J2405

== ENCOUNTER → 2020-10-17 13:38 | Outpatient (CLI) | payer MEDICARE, SELFPAY ==
[2020-10-06 15:32] VITALS: BMI 24.2
--- NOTE | 2020-10-17 13:42 | CDU_ITS ---
Reason For Study: Carotid Stenosis Rt. Velocities/BP Lt. Velocities/BP Prox CCA 71/13 cm/sec. Prox CCA 80/17 cm/sec. Mid CCA 58/13 cm/sec. Mid CCA 77/16 cm/sec. Dist CCA 69/16 cm/sec. Dist CCA 71/20 cm/sec. Prox ICA 192/41 cm/sec. Prox ICA 205/36 cm/sec. Mid ICA 160/36 cm/sec. Mid ICA 177/23 cm/sec. Dist ICA 94/19 cm/sec. Dist ICA 111/28 cm/sec. Rt. ICA/CCA = 3.31. Lt. ICA/CCA = 2.66. Prox ECA 75/6 cm/sec. Prox ECA 131/8 cm/sec. Rt. Vert. 44/5 cm/sec. Lt. Vert. 79/19 cm/sec. Right Extracranial There is heterogeneous, irregular atherosclerotic plaque noted in the right common carotid artery. There is heterogeneous, irregular atherosclerotic plaque noted in the right internal carotid artery. There is intimal thickening but no significant atherosclerotic plaque noted in the right external carotid artery. Antegrade flow is noted in the right vertebral artery. Left Extracranial There is intimal thickening but no significant atherosclerotic plaque noted in the left common carotid artery. There is homogeneous, irregular atherosclerotic plaque noted in the left internal carotid artery. There is homogeneous, irregular atherosclerotic plaque noted in the left external carotid artery. Antegrade flow is noted in the left vertebral artery. Procedure Carotid Duplex 86112. Exam performed in department. Interpretation Summary Moderate (50-69%) stenosis right extracranial internal carotid. Moderate (50-69%) stenosis left extracranial internal carotid. Flow within the vertebral arteries is antegrade bilaterally. Ordering Physician: Scott King Referring Physician: Joao Yan Performed By: Danya Ortiz, JEFF, RVT
== END ==
PROVIDERS: PCP Student in an Organized Health Care Education/Training Program; Referring Provider Surgery Vascular Surgery; Visit Provider Surgery Vascular Surgery
DX: I65.23 Occlusion and stenosis of bilateral carotid arteries (principal); Z72.0 Tobacco use
CPT/HCPCS: 93880

== ENCOUNTER → 2020-10-30 16:48 | Outpatient (CLI) | payer MEDICARE, SELFPAY ==
[2020-10-06 15:32] VITALS: BMI 24.2
--- NOTE | 2020-10-30 14:30 | CYSPIN_PTH ---
PATIENT: JUAN CARLSO XIAO LOC: [facility] U#:[id number] AGE/SX: 85/F ROOM: RE10/30/[address]: Dr. Gilberto Constantino MD : 1940 BED: DIS: SPEC #: [id number] RECD: 10/31/20 06:21 STATUS: TIMI KARLENE #: [id number] ZOLTAN: 10/30/20 14:[address]: Gilberto Constantino DEPT: CYTOLOGY RECD BY: Trinity Hernandez ENTERED: 10/31/20 06:21 SP TYPE: CYSPIN FL OTHR DR: Dr. Joao Yan, DO Tissues: Urine Procedures: Pap Stain (control) Special Stain Group II Cytospin Fluid HEADER OPERATION: Not noted PRE-OP DIAGNOSIS: Malignant neoplasm of bladder TISSUE SUBMITTED: Urine for cytology DIAGNOSIS CYTOLOGY Urine for cytology (cytospin): Rare atypical urothelial cells present. Acute inflammation. AM:sheila 10/31/2020 COMMENT Reference is made to the patient's urine for cytology from 2019 ([id number]) in which malignant cells consistent with carcinoma were identified. CYTOLOGY STUDY Slides are reviewed. CYTOLOGY GROSS Received is 40 ml of yellow cloudy fluid labeled with the patient's name and and designated per the requisition as urine. Submitted for cytology preparation. / rg 10/30/20 TC:? CPT: 38448 ADDENDUM ADDENDUM ADDENDUM ADDENDUM ADDENDUM 11/04/2020 08:51 ADDENDUM 11/04/2020 08:51 ADDENDUM 11/04/2020 08:51 ADDENDUM 11/04/2020 08:51 ADDENDUM 11/04/2020 08:51 Low-grade urothelial carcinoma cannot be excluded. Case has been reviewed in consultation with Dr. Enriquez who concurs with the above diagnosis. IDC:SJ
[2020-10-30 17:00] LABS: Cytology, Body Fluid / CSF SEE PATHOLOGY REPORT
== END ==
PROVIDERS: PCP Student in an Organized Health Care Education/Training Program; Referring Provider Urology; Visit Provider Urology
DX: Z85.51 Personal history of malignant neoplasm of bladder (principal)
CPT/HCPCS: 88108; 88313

== ENCOUNTER → 2021-02-02 16:53 | Outpatient (CLI) | payer MEDICARE, SELFPAY ==
[2020-12-10 11:16] VITALS: BMI 22.7
--- NOTE | 2021-02-02 14:27 | CYSPIN_PTH ---
PATIENT: JUAN CARLOS XIAO LOC: [facility] U#:[id number] AGE/SX: 85/F ROOM: RE02/02/[address]: Dr. Gilberto Constantino MD : 1940 BED: DIS: SPEC #: [id number] RECD: 02/03/21 08:02 STATUS: TIMI KARLENE #: [id number] ZOLTAN: 02/02/21 14:[address]: Gilberto Constantino DEPT: CYTOLOGY RECD BY: Trinity Hernandez ENTERED: 02/03/21 08:02 SP TYPE: CYSPIN FL OTHR DR: Dr. Joao Yan, DO Tissues: Urine Procedures: Pap Stain (control) Special Stain Group II Cytospin Fluid HEADER OPERATION: Not noted PRE-OP DIAGNOSIS: History of malignant neoplasm of bladder TISSUE SUBMITTED: Urine for cytology DIAGNOSIS CYTOLOGY Urine for cytology (cytospin): Negative for malignant cells. Numerous organisms consistent with bacteria are noted. See comment. SJ:sheila 02/04/2021 COMMENT The specimen predominantly consists of squamous epithelial cells. Please make reference to previous specimens ([id number]) urinary bladder tumor, TUR with diagnosis of urothelial carcinoma and ([id number]) urine for cytology with diagnosis of rare atypical urothelial cells present. CYTOLOGY STUDY Slides are reviewed. CYTOLOGY GROSS Received is 30.5 ml of yellow cloudy fluid labeled with the patient's name and and designated per the requisition as urine. Submitted for cytology preparation. / sheila 02/03/2021 TC:5 CPT: 80710
[2021-02-02 17:18] LABS: Cytology, Body Fluid / CSF SEE PATHOLOGY REPORT
== END ==
PROVIDERS: PCP Student in an Organized Health Care Education/Training Program; Referring Provider Urology; Visit Provider Urology
DX: Z85.51 Personal history of malignant neoplasm of bladder (principal)
CPT/HCPCS: 88108; 88313

== ENCOUNTER 2021-08-11 17:45 | Outpatient (CLI) | payer MEDICARE, SELFPAY ==
--- NOTE | 2021-08-11 15:19 | CYSPIN_PTH ---
PATIENT: JUAN CARLOS XIAO LOC: [facility] U#:[id number] AGE/SX: 81/F ROOM: RE08/11/[address]: Dr. Gilberto Constantino MD : 1940 BED: DIS: 08/11/2021 SPEC #: [id number] RECD: 08/12/21 06:09 STATUS: TIMI MARKCharlie #: [id number] ZOLTAN: 08/11/21 15:[address]: Gilberto Constantino DEPT: CYTOLOGY RECD BY: Trinity Hernandez ENTERED: 08/12/21 06:09 SP TYPE: CYSPIN FL OTHR DR: Dr. Joao Yan, DO Tissues: Urine Procedures: Pap Stain (control) Special Stain Group II Cytospin Fluid HEADER OPERATION: Not noted PRE-OP DIAGNOSIS: Neoplasm of bladder TISSUE SUBMITTED: Urine for cytology DIAGNOSIS CYTOLOGY Urine for cytology (cytospin): Negative for malignant cells. AM:sheila 08/12/2021 CYTOLOGY STUDY Slides are reviewed. CYTOLOGY GROSS Received is 80 ml of yellow cloudy fluid labeled with the patient's name and and designated per the requisition as urine. Submitted for cytology preparation. / rg 08/11/21 TC:5 CPT: 38162
[2021-08-11 17:48] LABS: Cytology, Body Fluid / CSF SEE PATHOLOGY REPORT
== END 2021-08-11 23:59 | disposition short-term general hospital (02) ==
PROVIDERS: PCP Student in an Organized Health Care Education/Training Program; Visit Provider Urology
DX: D41.4 Neoplasm of uncertain behavior of bladder (principal)
CPT/HCPCS: 88108; 88313

== ENCOUNTER → 2022-02-05 | Outpatient (CLI) | payer MEDICARE, SELFPAY ==
[2022-02-05 15:37] LABS: Absolute Lymphocyte Count 3.22 X10^3/uL (0.83-4.51); Basophil# 0.04 X10^3/uL; Basophil% 0.4 % (0-1); Eosinophil# 0.25 X10^3/uL; Eosinophils% 2.7 % (0-5); Hematocrit 38.3 % (37-47); Hemoglobin 11.3 g/dL (12.0-15.0); Lymphocyte # 3.22 X10^3/ul (0.83-4.51); Lymphocyte % 34.7 % (19-41); Mean Corp Hgb Conc 29.5 g/dL (32-36); Mean Corpuscular Volume 81.3 fL (81-99); Mean Platelet Vol. 11.4 fl (6.2-12.0); Monocyte# 0.76 X10^3/uL; Monocyte% 8.2 % (0-10); NRBC Flagged by Analyzer 0 % (0-5); Neutrophil # 4.99 X10^3/uL (2.7-7.7); Neutrophil % 53.7 % (47-70); Platelet Count 291 K/mm3 (150-450); RBC Distribution Width SD 50.2 fl (35.1-43.9); Red Blood Count 4.71 M/mm3 (4.2-5.4); White Blood Count 9.3 K/mm3 (4.4-11.0)
[2022-02-05 15:46] LABS: Anion Gap 4 (5-15); BUN 21 mg/dL (7-18); BUN/Creat Ratio 20.2 RATIO (10-20); Calcium,Total 9.4 mg/dL (8.5-10.1); Chloride 106 mmol/L (98-107); Creatinine, Serum 1.04 mg/dL (0.55-1.02); EST Glomerular Filtration Rate 54 mL/min (>60); Est Glom Filt Rate - Afr Amer 65 mL/min (>60); Glucose 69 mg/dL (74-106); Potassium 3.9 mmol/L (3.5-5.1); Sodium Level 142 mmol/L (136-145)
== END | disposition home or self-care (01) ==
LOC: LAB 13:48
PROVIDERS: PCP Student in an Organized Health Care Education/Training Program; Referring Provider Nurse Practitioner Gerontology; Visit Provider Nurse Practitioner Gerontology
DX: R06.00 Dyspnea, unspecified (principal)
CPT/HCPCS: 36415; 80048; 83880; 85025

== ENCOUNTER → 2022-02-10 | Outpatient (CLI) | payer MEDICARE, SELFPAY ==
[2022-02-10 12:51] LABS: Anion Gap 4 (5-15); BUN 22 mg/dL (7-18); Calcium,Total 9.3 mg/dL (8.5-10.1); Chloride 107 mmol/L (98-107); Creatinine, Serum 1.22 mg/dL (0.55-1.02); EST Glomerular Filtration Rate 45 mL/min (>60); Est Glom Filt Rate - Afr Amer 54 mL/min (>60); Glucose 117 mg/dL (74-106); Potassium 4.3 mmol/L (3.5-5.1); Sodium Level 142 mmol/L (136-145)
== END | disposition home or self-care (01) ==
PROVIDERS: PCP Student in an Organized Health Care Education/Training Program; Referring Provider Nurse Practitioner Gerontology; Visit Provider Nurse Practitioner Gerontology
DX: R06.00 Dyspnea, unspecified (principal)
CPT/HCPCS: 36415; 80048

== ENCOUNTER → 2022-02-16 | Outpatient (CLI) | payer MEDICARE, SELFPAY ==
--- NOTE | 2022-02-16 12:47 | CDU_ITS ---
Reason For Study: carotid stenosis Rt. Velocities/BP Lt. Velocities/BP Prox CCA 55.2/12.1 cm/sec. Prox CCA 77.2/20.1 cm/sec. Mid CCA 57.8/12.1 cm/sec. Mid CCA 64.0/16.8 cm/sec. Dist CCA 56.5/16.0 cm/sec. Dist CCA 59.7/16.8 cm/sec. Prox ICA 180.6/38.0 cm/sec. Prox ICA 227.3/43.0 cm/sec. Mid ICA 160.9/38.0 cm/sec. Mid ICA 189.9/18.9 cm/sec. Dist ICA 145.5/27.0 cm/sec. Dist ICA 137.6/24.8 cm/sec. Rt. ICA/CCA = 3.1. Lt. ICA/CCA = 3.5. Prox ECA 70.8/8.2 cm/sec. Prox ECA 288.6/20.4 cm/sec. Rt. Vert. 47.6/9.1 cm/sec. Lt. Vert. 81.4/16.3 cm/sec. Right Extracranial There is heterogeneous, irregular atherosclerotic plaque noted in the right common carotid artery. There is heterogeneous, irregular atherosclerotic plaque noted in the right internal carotid artery. There is homogeneous, smooth atherosclerotic plaque noted in the right external carotid artery. Antegrade flow is noted in the right vertebral artery. Left Extracranial There is homogeneous, smooth atherosclerotic plaque noted in the left common carotid artery. There is heterogeneous, irregular atherosclerotic plaque noted in the left internal carotid artery. There is homogeneous, irregular atherosclerotic plaque noted in the left external carotid artery. Antegrade flow is noted in the left vertebral artery. Procedure Carotid Duplex 15514. This is a Carotid Duplex examination using B-mode, color flow and specral Doppler. The exam was diagnostic. Exam performed in department. VL/Carotid Duplex Ultrasound Interpretation Summary Moderate (50-69%) stenosis right extracranial internal carotid. Moderate (50-69 %) stenosis left extracranial internal carotid. Flow within the vertebral arteries is antegrade bilaterally. Ordering Physician: Scott King Performed By: Mark Rodriges RVT
== END | disposition home or self-care (01) ==
LOC: CVS 12:43
PROVIDERS: PCP Student in an Organized Health Care Education/Training Program; Referring Provider Surgery Vascular Surgery; Visit Provider Surgery Vascular Surgery
DX: I65.23 Occlusion and stenosis of bilateral carotid arteries (principal); Z72.0 Tobacco use
CPT/HCPCS: 93880

== ENCOUNTER → 2023-04-12 | Outpatient (CLI) | payer MEDICARE, SELFPAY ==
--- NOTE | 2023-04-12 14:35 | RAD_ITS ---
STUDY: X-RAY - PELVIS REASON FOR EXAM: Female, 82 years old. PAIN TECHNIQUE: One view of the pelvis was obtained. COMPARISON: 10/02/2018 chest x-ray FINDINGS: There is a non-specific bowel gas pattern. There is a visualized spinal fusion at the level of L3 to level of the sacrum. There is narrowing with cortical sclerosis and osteophyte formation of the sacroiliac joint consistent with degenerative osteoarthritic changes. Normal visualized bilateral superior and inferior pubic rami. Normal pubic symphysis. Normal ischial tuberosities. There is a well-circumscribed density projected over the left iliac crest suggesting retained contrast in a diverticulum. Normal visualized right femoral head. Normal right acetabulum. Normal right hip joint. Normal visualized left femoral head. Normal left acetabulum. Normal left hip joint. RAD/Pelvis 1 or 2 Views IMPRESSION: No visualized acute fracture. Electronically Signed: Sonia Burch MD at 4:43 EDT ,
[2023-04-12 17:43] LABS: Absolute Lymphocyte Count 2.14 X10^3/uL (0.83-4.51); Absolute Neutrophil Count 4.5 X10^3/uL (2.0-7.7); Basophil# 0.08 X10^3/uL; Basophil% 1.1 % (0-1); Eosinophil# 0.15 X10^3/uL; Hematocrit 32.2 % (37-47); Hemoglobin 8.9 g/dL (12.0-15.0); Lymphocyte # 2.14 X10^3/ul (0.83-4.51); Lymphocyte % 28.2 % (19-41); Mean Corp Hgb Conc 27.6 g/dL (32-36); Mean Corpuscular Hgb 18.2 pg (27.0-32.0); Mean Corpuscular Volume 65.8 fL (81-99); Mean Platelet Vol. 10.4 fl (6.2-12.0); Monocyte# 0.73 X10^3/uL; Monocyte% 9.6 % (0-10); NRBC Flagged by Analyzer 0 % (0-5); Neutrophil # 4.48 X10^3/uL (2.7-7.7); Neutrophil % 58.8 % (47-70); Platelet Count 371 K/mm3 (150-450); RBC Distribution Width CV 19.1 % (11.6-14.6); RBC Distribution Width SD 43.2 fl (35.1-43.9); Red Blood Count 4.89 M/mm3 (4.2-5.4); White Blood Count 7.6 K/mm3 (4.4-11.0)
[2023-04-12 17:46] LABS: Erythrocyte Sedimentation Rate 34 mm/hr (0-30)
[2023-04-12 17:54] LABS: ALB/GLOB Ratio 0.9 RATIO (0.9-2.4); AST(SGOT) 20 U/L (15-37); Alanine Aminotransfer ALT/SGPT 10 U/L (13-56); Albumin, Serum 3.7 g/dL (3.2-5.0); Alkaline Phosphatase 120 U/L (45-117); Anion Gap 8 (5-15); BUN 20 mg/dL (7-18); CRP 3.83 mg/L (0.0-3.0); Calcium,Total 9.3 mg/dL (8.5-10.1); Chloride 104 mmol/L (98-107); Creatinine, Serum 1.05 mg/dL (0.55-1.02); EST Glomerular Filtration Rate 53 mL/min (>60); Est Glom Filt Rate - Afr Amer 64 mL/min (>60); Globulin 4.2 g/dL (2.2-4.2); Glucose 89 mg/dL (74-106); Potassium 3.3 mmol/L (3.5-5.1); Protein, Total 7.9 g/dL (6.4-8.2); Rheumatoid Factor < 10.0 IU/mL (<15); Sodium Level 142 mmol/L (136-145)
[2023-04-12 18:29] LABS: Hepatitis B Surface Antibody Non-Reactive; Hepatitis B Surface Antigen Non-Reactive (Nonreactive); Hepatitis C Antibody Non-Reactive (Nonreactive)
[2023-04-14 13:07] LABS: ANTINUCLEAR ANTIBODIES DIRECT Negative (Negative); CCP IgG Antibodies 6 units (0-19); QNTFERON TB Mitogen Value > 10.00 IU/mL (.); QNTFERON TB Nil Value 0 IU/mL (.); QNTFERON TB1+ Ag Value 0.02 IU/mL (.); QNTFERON TB2+ Ag Value 0.02 IU/mL (.); QNTIFERON TB Positive Criteria Negative (Negative)
== END | disposition home or self-care (01) ==
LOC: MTLAB 14:29
PROVIDERS: PCP Student in an Organized Health Care Education/Training Program; Referring Provider Internal Medicine Rheumatology; Visit Provider Internal Medicine Rheumatology
DX: M06.4 Inflammatory polyarthropathy (principal); M19.041 Primary osteoarthritis, right hand; M47.897 Other spondylosis, lumbosacral region; M17.0 Bilateral primary osteoarthritis of knee; Z79.899 Other long term (current) drug therapy
CPT/HCPCS: 36415; 72170; 80053; 85025; 85652; 86038; 86140; 86200; 86431; 86480; 86706; 86803; 87340

== ENCOUNTER → 2023-07-25 | Outpatient (CLI) | payer MEDICARE, SELFPAY ==
[2023-07-25 18:13] LABS: Absolute Lymphocyte Count 1.75 X10^3/uL (0.83-4.51); Absolute Neutrophil Count 5.7 X10^3/uL (2.0-7.7); Basophil# 0.08 X10^3/uL; Eosinophil# 0.12 X10^3/uL; Eosinophils% 1.5 % (0-5); Hematocrit 51.2 % (37-47); Hemoglobin 15.7 g/dL (12.0-15.0); Lymphocyte # 1.75 X10^3/ul (0.83-4.51); Lymphocyte % 21.2 % (19-41); Mean Corp Hgb Conc 30.7 g/dL (32-36); Mean Corpuscular Hgb 26.6 pg (27.0-32.0); Mean Corpuscular Volume 86.8 fL (81-99); Monocyte# 0.59 X10^3/uL; Monocyte% 7.1 % (0-10); NRBC Flagged by Analyzer 0 % (0-5); Neutrophil # 5.69 X10^3/uL (2.7-7.7); Neutrophil % 68.8 % (47-70); POSITIVE MORPHOLOGY YES; Platelet Count 247 K/mm3 (150-450); RBC Distribution Width CV 21.7 % (11.6-14.6); RBC Distribution Width SD 71.5 fl (35.1-43.9); White Blood Count 8.3 K/mm3 (4.4-11.0)
[2023-07-25 18:25] LABS: ALB/GLOB Ratio 0.9 RATIO (0.9-2.4); AST(SGOT) 22 U/L (15-37); Alanine Aminotransfer ALT/SGPT 12 U/L (13-56); Albumin, Serum 3.7 g/dL (3.2-5.0); Alkaline Phosphatase 115 U/L (45-117); Anion Gap 7 (5-15); BUN 16 mg/dL (7-18); BUN/Creat Ratio 16.6 RATIO (10-20); Calcium,Total 9.3 mg/dL (8.5-10.1); Chloride 106 mmol/L (98-107); Creatinine, Serum 0.97 mg/dL (0.55-1.02); EST Glomerular Filtration Rate 58 mL/min (>60); Est Glom Filt Rate - Afr Amer 71 mL/min (>60); Globulin 4.2 g/dL (2.2-4.2); Glucose 56 mg/dL (74-106); Potassium 3.9 mmol/L (3.5-5.1); Protein, Total 7.9 g/dL (6.4-8.2); Sodium Level 143 mmol/L (136-145)
[2023-07-25 18:32] LABS: Differential Indicated SCAN CRITERIA MET
[2023-07-25 18:36] LABS: Platelet Estimate ADEQUATE (ADEQ)
[2023-07-25 18:37] LABS: Anisocytosis RARE; Macrocytosis RARE; Ovalocyte RARE; Red Cell Morphology NORM C+C NORMAL (NORM C&C)
== END | disposition home or self-care (01) ==
PROVIDERS: PCP Student in an Organized Health Care Education/Training Program; Referring Provider Internal Medicine Rheumatology; Visit Provider Internal Medicine Rheumatology
DX: M06.4 Inflammatory polyarthropathy (principal); M19.041 Primary osteoarthritis, right hand; M47.897 Other spondylosis, lumbosacral region; M17.0 Bilateral primary osteoarthritis of knee; K21.9 Gastro-esophageal reflux disease without esophagitis; E89.0 Postprocedural hypothyroidism; I25.10 Atherosclerotic heart disease of native coronary artery without angina pectoris; I10 Essential (primary) hypertension; E78.5 Hyperlipidemia, unspecified; I87.2 Venous insufficiency (chronic) (peripheral); Z95.3 Presence of xenogenic heart valve; Z79.899 Other long term (current) drug therapy
CPT/HCPCS: 36415; 80053; 85025

== ENCOUNTER → 2023-09-13 | Outpatient (CLI) | payer MEDICARE, SELFPAY ==
--- NOTE | 2023-09-13 10:21 | BD_ITS ---
STUDY: DUAL ENERGY X-RAY ABSORPTIOMETRY / DXA REASON FOR EXAM: Female, 83 years old. M810 TECHNIQUE: Bone Mineral Density (BMD) measurements of lumbar spine and bilateral hips were obtained. COMPARISON: None. FINDINGS: Lumbar Spine (L1-L4): g/cm2 (0.932) / T-score (-0.8) / Z-score (2.0) Findings are suggestive of normal bone density with a low fracture risk. Left Femur Total: g/cm2 (0.574) / T-score (-3.0) / Z-score (-0.7) Left Femoral Neck: g/cm2 (0.502) / T-score (-3.1) / Z-score (-0.6) Right Femur Total: g/cm2 (0.601) / T-score (-2.8) / Z-score (-0.5) Right Femoral Neck: g/cm2 (0.496) / T-score (-3.2) / Z-score (-0.7) BD/Dexa Bone Density Study IMPRESSION: The patient is considered osteoporotic as outlined below according to World [employer] Organization (WHO) criteria with a high fracture risk. Reference Information: The T-score is the number of standard deviations above or below the standard which is normal for young adults at their peak bone mineral density. The World Health Organization (WHO) interprets the T-scores as follows: Above -1 Normal bone density Between -1 and -2.5 Osteopenia Equal to / or below -2.5 Osteoporosis As a practical clinical guideline, osteopenia may be graded as follows: Mild -1 through -1.5 Moderate -1.6 through -2.0 Severe -2.1 through -2.4 The Z-score is the number of standard deviations above or below age-matched controls. A Z-score of less than -1.5 would be considered abnormal. References: 1. NIH Osteoporosis and Related Bone Diseases www osteo.org 2. International Society for Clinical Densitometry www iscd.org 3. National Osteoporosis Foundation www nof.org Electronically Signed: Ender Tucker MD at 15:43 EST ,
== END | disposition home or self-care (01) ==
LOC: OPBD 10:16
PROVIDERS: PCP Student in an Organized Health Care Education/Training Program; Referring Provider Student in an Organized Health Care Education/Training Program; Visit Provider Student in an Organized Health Care Education/Training Program
DX: M81.0 Age-related osteoporosis without current pathological fracture (principal)
CPT/HCPCS: 77080

== ENCOUNTER 2023-10-10 14:04 | Outpatient (CLI) | payer MEDICARE, SELFPAY ==
[2023-10-10 17:36] LABS: Absolute Lymphocyte Count 1.58 X10^3/uL (0.83-4.51); Absolute Neutrophil Count 5.4 X10^3/uL (2.0-7.7); Basophil# 0.08 X10^3/uL; Eosinophil# 0.18 X10^3/uL; Eosinophils% 2.3 % (0-5); Hematocrit 47.6 % (37-47); Hemoglobin 15.6 g/dL (12.0-15.0); Lymphocyte # 1.58 X10^3/ul (0.83-4.51); Lymphocyte % 20.3 % (19-41); Mean Corp Hgb Conc 32.8 g/dL (32-36); Mean Corpuscular Hgb 29.2 pg (27.0-32.0); Mean Corpuscular Volume 89.1 fL (81-99); Mean Platelet Vol. 10.4 fl (6.2-12.0); Monocyte# 0.57 X10^3/uL; Monocyte% 7.3 % (0-10); NRBC Flagged by Analyzer 0 % (0-5); Neutrophil # 5.37 X10^3/uL (2.7-7.7); Neutrophil % 68.8 % (47-70); Platelet Count 301 K/mm3 (150-450); RBC Distribution Width CV 14.4 % (11.6-14.6); RBC Distribution Width SD 46.8 fl (35.1-43.9); Red Blood Count 5.34 M/mm3 (4.2-5.4); White Blood Count 7.8 K/mm3 (4.4-11.0)
[2023-10-10 18:38] LABS: AST(SGOT) 22 U/L (15-37); Alanine Aminotransfer ALT/SGPT 13 U/L (13-56); Albumin, Serum 3.9 g/dL (3.2-5.0); Alkaline Phosphatase 113 U/L (45-117); Anion Gap 7 (5-15); BUN 21 mg/dL (7-18); BUN/Creat Ratio 20.8 RATIO (10-20); Calcium,Total 9.4 mg/dL (8.5-10.1); Chloride 105 mmol/L (98-107); Cholesterol 208 mg/dL (200); Creatinine, Serum 1.01 mg/dL (0.55-1.02); EST Glomerular Filtration Rate 55 mL/min (>60); Est Glom Filt Rate - Afr Amer 67 mL/min (>60); Globulin 4.1 g/dL (2.2-4.2); Glucose 79 mg/dL (74-106); High Density Lipoprotein 68 mg/dL; Potassium 3.6 mmol/L (3.5-5.1); Sodium Level 140 mmol/L (136-145); Triglycerides 165 mg/dL; Very Low Density Lipoprotein 33 mg/dL (5-40); Vitamin D,25 Hydroxy 74.4 ng/mL
[2023-10-10 18:41] LABS: PTHIN 143.4 pg/mL (18.4-80.1)
[2023-10-10 19:03] LABS: Creatinine, Urine (random) < 13.00 mg/dL (NO RANGE EST.)
== END 2023-10-10 23:59 | disposition home or self-care (01) ==
PROVIDERS: PCP Student in an Organized Health Care Education/Training Program; Referring Provider Internal Medicine Rheumatology; Visit Provider Internal Medicine Rheumatology
DX: M06.4 Inflammatory polyarthropathy (principal); N18.32 Chronic kidney disease, stage 3b; M19.041 Primary osteoarthritis, right hand; M17.0 Bilateral primary osteoarthritis of knee; K21.9 Gastro-esophageal reflux disease without esophagitis; E89.0 Postprocedural hypothyroidism; I25.10 Atherosclerotic heart disease of native coronary artery without angina pectoris; I12.9 Hypertensive chronic kidney disease with stage 1 through stage 4 chronic kidney disease, or unspecified chronic kidney disease; E78.5 Hyperlipidemia, unspecified; I87.2 Venous insufficiency (chronic) (peripheral); Z85.3 Personal history of malignant neoplasm of breast; Z13.6 Encounter for screening for cardiovascular disorders; E03.9 Hypothyroidism, unspecified
CPT/HCPCS: 36415; 80053; 80061; 82043; 82306; 82570; 83970; 84439; 84443; 85025

== ENCOUNTER → 2023-10-18 | Outpatient (CLI) | payer MEDICARE, SELFPAY ==
--- NOTE | 2023-10-18 15:30 | RAD_ITS ---
STUDY: X-RAY - PELVIS AND RIGHT HIP REASON FOR EXAM: Female, 83 years old. Pain. TECHNIQUE: 3 views of the pelvis and hip. COMPARISON: 10/02/2018 FINDINGS: There is a non-specific bowel gas pattern. Normal visualized soft tissue structures. Osteopenia. Lower lumbosacral spinal fusion, unchanged. Mild arthrosis of both sacroiliac joints. Mild arthrosis of the symphysis pubis. Mild arthrosis of both hips. Stable findings since the prior study. RAD/HIP, UNI W/ Pelvis 2-3 Views IMPRESSION: Stable osteopenia, lower lumbosacral spinal fusion and mild arthrosis of both sacroiliac joints, the symphysis pubis and both hips. No new or acute finding. Electronically Signed: Kurt Strong MD at 10:44 EDT ,
== END | disposition home or self-care (01) ==
LOC: MTRAD 15:28
PROVIDERS: PCP Student in an Organized Health Care Education/Training Program; Referring Provider Internal Medicine Rheumatology; Visit Provider Internal Medicine Rheumatology
DX: M06.4 Inflammatory polyarthropathy (principal); M47.897 Other spondylosis, lumbosacral region
CPT/HCPCS: 73502

== ENCOUNTER → 2024-01-03 | Outpatient (CLI) | payer MEDICARE, SELFPAY ==
[2024-01-03 17:58] LABS: Absolute Lymphocyte Count 1.64 X10^3/uL (0.83-4.51); Absolute Neutrophil Count 4.7 X10^3/uL (2.0-7.7); Basophil# 0.06 X10^3/uL; Basophil% 0.8 % (0-1); Eosinophil# 0.14 X10^3/uL; Hematocrit 47.9 % (37-47); Hemoglobin 15.3 g/dL (12.0-15.0); Lymphocyte # 1.64 X10^3/ul (0.83-4.51); Lymphocyte % 22.9 % (19-41); Mean Corp Hgb Conc 31.9 g/dL (32-36); Mean Corpuscular Hgb 27.8 pg (27.0-32.0); Mean Corpuscular Volume 86.9 fL (81-99); Mean Platelet Vol. 11.2 fl (6.2-12.0); Monocyte# 0.55 X10^3/uL; Monocyte% 7.7 % (0-10); NRBC Flagged by Analyzer 0 % (0-5); Neutrophil # 4.74 X10^3/uL (2.7-7.7); Neutrophil % 66.3 % (47-70); Platelet Count 250 K/mm3 (150-450); RBC Distribution Width CV 14.3 % (11.6-14.6); RBC Distribution Width SD 45.8 fl (35.1-43.9); Red Blood Count 5.51 M/mm3 (4.2-5.4); White Blood Count 7.2 K/mm3 (4.4-11.0)
[2024-01-03 18:44] LABS: AST(SGOT) 19 U/L (15-37); Alanine Aminotransfer ALT/SGPT 13 U/L (13-56); Albumin, Serum 3.8 g/dL (3.2-5.0); Alkaline Phosphatase 106 U/L (45-117); Anion Gap 10 (5-15); BUN 28 mg/dL (7-18); BUN/Creat Ratio 22.2 RATIO (10-20); Calcium,Total 9.8 mg/dL (8.5-10.1); Chloride 104 mmol/L (98-107); Creatinine, Serum 1.26 mg/dL (0.55-1.02); EST Glomerular Filtration Rate 43 mL/min (>60); Est Glom Filt Rate - Afr Amer 52 mL/min (>60); Glucose 111 mg/dL (74-106); Potassium 4.3 mmol/L (3.5-5.1); Protein, Total 7.8 g/dL (6.4-8.2); Sodium Level 140 mmol/L (136-145)
== END | disposition home or self-care (01) ==
LOC: MTLAB 14:42
PROVIDERS: PCP Student in an Organized Health Care Education/Training Program; Referring Provider Internal Medicine Rheumatology; Visit Provider Internal Medicine Rheumatology
DX: M06.4 Inflammatory polyarthropathy (principal); Z79.899 Other long term (current) drug therapy
CPT/HCPCS: 36415; 80053; 85025

== ENCOUNTER 2024-07-05 11:53 | Inpatient (IN) | payer MEDICARE, SELFPAY ==
[2024-07-05] VITALS (13 sets, daily range): BP systolic 130–191; BP diastolic 51–93; PULSE 79–93; RESP 11–20; TEMP 36.4–36.9; O2SAT 88–100; BMI 18.1; BMI 18.5
--- NOTE | 2024-07-05 12:24 | RAD_ITS ---
EXAM: XR CHEST, 1 VIEW CLINICAL INDICATION: cough TECHNIQUE: Frontal view of the chest. COMPARISON: XR Chest dated 05/16/2024 FINDINGS: LUNGS AND PLEURAL SPACES: Persistent left hilar and infrahilar masslike density noted associated with infiltrate or atelectasis of the left lower lobe. Emphysematous changes noted within the upper lobes of lungs bilaterally. No pleural effusion or pneumothorax. HEART: Normal heart size. MEDIASTINUM: No mediastinal or hilar mass. BONES/JOINTS: No acute abnormality. RAD/Chest 1 View (Portable) IMPRESSION: Persistent left hilar and infrahilar mass. Residual left lower lobe pneumonia/atelectasis. Electronically Signed: Rudy Nichols MD at 13:28 EST ,
[2024-07-05 12:35] LABS: Absolute Neutrophil Count 8.4 X10^3/uL (2.0-7.7); Basophil# 0.03 X10^3/uL; Basophil% 0.3 % (0-1); Hematocrit 39.4 % (37-47); Hemoglobin 12.7 g/dL (12.0-15.0); Lymphocyte % 4.3 % (19-41); Mean Corp Hgb Conc 32.2 g/dL (32-36); Mean Corpuscular Hgb 27.4 pg (27.0-32.0); Mean Corpuscular Volume 84.9 fL (81-99); Mean Platelet Vol. 10.5 fl (6.2-12.0); Monocyte# 0.53 X10^3/uL; Monocyte% 5.6 % (0-10); NRBC Flagged by Analyzer 0 % (0-5); Neutrophil # 8.42 X10^3/uL (2.7-7.7); Neutrophil % 89.5 % (47-70); POSITIVE DIFFERENTIAL YES; POSITIVE MORPHOLOGY YES; Platelet Count 152 K/mm3 (150-450); RBC Distribution Width CV 16.3 % (11.6-14.6); RBC Distribution Width SD 49.3 fl (35.1-43.9); Red Blood Count 4.64 M/mm3 (4.2-5.4); White Blood Count 9.4 K/mm3 (4.4-11.0)
[2024-07-05 12:43] LABS: International Normalized Ratio 1.2; Partial Thromboplast Time 23.7 Seconds (24.1-36.2); Prothrombin Time (Protime)PT. 15.2 SECONDS (11.7-14.9)
[2024-07-05 12:55] LABS: AST(SGOT) 74 U/L (15-37); Alanine Aminotransfer ALT/SGPT 30 U/L (13-56); Albumin, Serum 3.1 g/dL (3.2-5.0); Alkaline Phosphatase 95 U/L (45-117); Anion Gap 12 (5-15); BUN 53 mg/dL (7-18); BUN/Creat Ratio 35.8 RATIO (10-20); Bilirubin, Direct 0.57 mg/dL (0.00-0.30); Calcium,Total 9.5 mg/dL (8.5-10.1); Chloride 103 mmol/L (98-107); Creatinine, Serum 1.48 mg/dL (0.55-1.02); EST Glomerular Filtration Rate 36 mL/min (>60); Est Glom Filt Rate - Afr Amer 43 mL/min (>60); Estimated Creatinine Clearance 20.73 ml/min; Globulin 3.3 g/dL (2.2-4.2); Glucose 89 mg/dL (74-106); Lipase 163 U/L (13-75); Potassium 3.1 mmol/L (3.5-5.1); Protein, Total 6.4 g/dL (6.4-8.2); Sodium Level 144 mmol/L (136-145); Troponin-I HS 38 pg/mL (3.0-54.0)
[2024-07-05] MEDS: Ipratropium/Albuterol Sulfate 3 ML AMPUL.NEB INHALATION ×2 (12:57→23:21)
[2024-07-05 13:01] LABS: BNP,B-Type NATRIURETIC PEPTIDE 282.5 pg/mL (0-100)
--- NOTE | 2024-07-05 13:01 | EX.ED.DYSGE1 ---
HPI History of Present Illness Chief Complaint: Shortness of Breath Informant: patient and family Narrative Narrative: 84-year-old female multiple medical problems presenting to the emergency room with generalized weakness. Patient and family are very poor historians and that he cannot really answer much specifics regarding recent health care. Is reported that she sees primary care in [place] and somewhere along the line began seeing doctors in [place] who diagnosed her with a cancer. When asked where the cancer is at the stay were not sure but then they tell me that it is maybe in the throat and in the lungs. Patient has been seeing ENT in [place] but then transferred care here to [place] for paralyzed vocal cord. She had appointments both in [place] and here at [facility] to have this biopsied/evaluated but they canceled the ones in [place] and have the appointments upcoming in the next couple weeks here. She is from home and has been steadily declining. Now having to use a walker to ambulate and has been falling resulting in skin tears particularly last night to the bilateral lower extremities. They note minimal food intake. She states she is not making very much urine due to not hydrating. No reported fevers. She notes that she has developed a cough and it is very hard for her to try to clear any mucus. She does not carry a diagnosis of COPD or emphysema but did smoke up until about a year and a half ago. She notes that her pulse ox was down to 88% last night but does not have any home oxygen. 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 difficile diarrhea Benign essential HTN Abdominal aortic aneurysm without rupture Breast cancer Peripheral vascular disease Atherosclerotic heart disease of [place] coronary artery without angina pectoris History of placement of stent in LAD coronary artery (~1995) Essential hypertension Acute anemia GERD (gastroesophageal reflux disease) Hypertension Hyperlipidemia Hypothyroid Home Medications ?Medication ?Instructions ?Recorded ?Last Taken ?Type aspirin 81 mg tablet,delayed 81 mg PO DAILY [place] 03/29/18 07/04/24 History release furosemide 40 mg tablet 40 mg PO DAILY 02/05/22 07/04/24 History nitroglycerin 0.4 mg sublingual 0.4 mg sublingual Q5-15M PRN chest 08/23/22 Unknown Rx tablet pain #25 tabs levothyroxine 125 mcg tablet 125 mcg PO DAILY 05/24/23 07/04/24 History carvedilol 6.25 mg tablet 6.25 mg PO BID #180 tabs 05/23/24 07/04/24 Rx amlodipine 5 mg tablet 5 mg PO QDAY 06/18/24 07/04/24 History budesonide-formoterol HFA 160 1 inh inhalation ONCE 06/18/24 Unknown History mcg-4.5 mcg/actuation aerosol inhaler ezetimibe 10 mg tablet (Zetia) 10 mg PO QDAY 06/18/24 07/04/24 History oxycodone 5 mg tablet 5 mg PO Q6H PRN PRN pain 07/05/24 07/04/24 History potassium chloride 10 mEq 10 meq PO DAILY 07/05/24 Unknown History tablet,extended release Allergy/AdvReac Type Severity Reaction Status Date / Time cortisone Allergy Intermediate high BP, Verified 07/05/24 11:53 Swelling prednisone Allergy Intermediate High BP, Verified 07/05/24 11:53 Swelling hydroxychloroquine AdvReac Intermediate retinal Verified 07/05/24 11:53 damage [id number] Reductase AdvReac Unknown myalgia Verified 07/05/24 11:53 Inhibitor Family History Mother Breast cancer Glaucoma Father Liver cancer Hypertension Aunt Breast cancer Sister Dementia Surgical History History of back surgery History of bilateral mastectomy Status post endovenous radiofrequency ablation (RFA) of saphenous vein (~04/13/17) History of carotid endarterectomy (~02/2004) History of hysterectomy History of right breast biopsy History of laparoscopic cholecystectomy History of right and left heart catheterization History of orthopedic surgery History of colonoscopy History of esophagogastroduodenoscopy (EGD) Social History Smoking Status: Former smoker Tobacco: How many years used: 25 second hand exposure: Yes alcohol intake: never substance use type: does not use what type of physical activity do you participate in: none ROS ROS ED Constitutional Constitutional ED: Reports weight loss; Denies chills or fever(s) Eyes Eyes: Denies change in vision or diplopia ENT ENT ED: Reports other Details: Hoarse voice difficulty swallowing ; Denies ear pain, rhinorrhea or sore throat Cardiovascular Cardiovascular: Denies chest pain, orthopnea, palpitations or racing heartbeat Respiratory/Chest Respiratory/Chest: Reports cough, dyspnea and dyspnea on exertion; Denies orthopnea Gastrointestinal Gastrointestinal: Denies abdominal pain, diarrhea, nausea or vomiting Genitourinary Genitourinary ED: Reports other Details: Decreased urination ; Denies dysuria, hematuria or urinary frequency Musculoskeletal Musculoskeletal: Denies arthralgias or myalgias Integumentary Reports Abrasions and other Details: Skin tears ; Denies abscess or rash Neurologic Neurologic: Denies headache(s) or weakness Psychiatric Psychiatric: Denies anxiety, depression, suicidal ideation or suicidal thoughts Endocrine Endocrinology: Reports other Details: Poor appetite ; Denies polydipsia, polyphagia or polyuria Allergic/Immunologic Allergic/Immunologic ED: Denies mouth swelling, tongue swelling or urticaria EXAM Physical Exam Const Vital Signs: 07/05/24 11:53 07/05/24 12:06 07/05/24 12:57 Temperature 97.9 F Temperature Source Oral Pulse Rate 85 86 Respiratory Rate 20 H 11 L Respiratory Effort Normal Non-Labored Respiratory Depth Normal Respiratory Pattern Normal Normal Blood Pressure 161/67 H Blood Pressure Mean 98 Pulse Ox 92 Oxygen Delivery Method Room Air Room Air Oxygen Flow Rate (L/min) 07/05/24 12:57 07/05/24 14:00 07/05/24 15:00 Temperature 97.7 F L 97.7 F L Temperature Source Oral Oral Pulse Rate 93 87 88 Respiratory Rate 18 18 19 H Respiratory Effort Respiratory Depth Respiratory Pattern Blood Pressure 157/68 H 133/79 H Blood Pressure Mean 97 97 Pulse Ox 100 95 94 Oxygen Delivery Method Nasal Cannula Nasal Cannula Nasal Cannula Oxygen Flow Rate (L/min) 2 2 2 07/05/24 15:00 07/05/24 15:05 Temperature 97.7 F L Temperature Source Oral Pulse Rate 83 Respiratory Rate 15 Respiratory Effort Respiratory Depth Respiratory Pattern Blood Pressure 150/69 H 154/51 H Blood Pressure Mean 96 85 Pulse Ox 100 Oxygen Delivery Method Nasal Cannula Oxygen Flow Rate (L/min) 2 Positive well nourished, well developed and obese General Appearance ED: well developed and NAD Nutritional Appearance: obese HEENT Reports normocephalic, head/scalp atraumatic and dry mucous membranes Mouth ED: Yes dry mucous membranes Mouth: dry mucous membranes Eyes PERRL and EOMs intact bilaterally Neck no lymphadenopathy, supple and no JVD Resp Resp Narrative: Moist rhonchorous cough Cardio regular rate, regular rhythm and no murmurs GI normal to inspection, nondistended, normoactive bowel sounds and non-tender Palpation: soft Back/Spine no CVA tenderness and normal ROM Extremity normal to inspection General Extremety ED: Negative for edema General Extremity: Negative for edema Neuro oriented x3 and CN's II-XII intact bilaterally Sensorium / Orientation: alert Motor Exam: strength 5/5 throughout Psych Mood & Affect: depressed and tearful Skin no rashes or lesions noted Skin Narrative: Multiple extremity bruising with skin tears and wound scabs including the bilateral lower extremities. MDM MDM MDM Narrative Medical decision making narrative: Differential diagnosis includes electrolyte abnormalities anemia dehydration malnutrition UTI renal dysfunction pneumonia bronchospasm bronchitis hypoxia pulmonary embolism Patient's white count 9.4 hemoglobin 12.7 platelet count of 152 creatinine 1.48 with a BUN of 53 potassium 3.1 troponin is 38 lactic acid is 2 urinalysis shows 5-10 white cells 2+ bacteria positive nitrates sent for culture blood cultures obtained. CTA of the chest demonstrates mediastinal mass with lymphadenopathy but no obvious pulmonary embolism. CT of the neck with IV contrast shows enlarged lymph nodes but no definitive mass. Patient received a breathing treatment and Solu-Medrol. Also gave her some Rocephin and IV fluids. Plan will be admission. She dropped to 83% on room air when she tends to go from the room to the doorway. It is strongly probable that the patient would be benefit from rehab but we will await PT OT consult. History & Record Review Discussion w/independent historian: Patient and Family Lab Data Attestation: I reviewed the patient's lab results. Labs: Laboratory Results - last 24 hr 07/05/24 07/05/24 07/05/24 12:15 12:36 13:35 WBC 9.4 RBC 4.64 Hgb 12.7 Hct 39.4 MCV 84.9 MCH 27.4 MCHC 32.2 RDW Std Deviation 49.3 H RDW Coeff of [place] 16.3 H Plt Count 152 MPV 10.5 Immature Gran % (Auto) 0.300 Neut % (Auto) 89.5 H Lymph % (Auto) 4.3 L [place] % (Auto) 5.6 Eos % (Auto) 0.0 Baso % (Auto) 0.3 Absolute Neuts (auto) 8.4 H Absolute Lymphs (auto) 0.40 L Nucleated RBC % 0 Differential Comment PT 15.2 H INR 1.2 APTT 23.7 L Sodium 144 Potassium 3.1 L Chloride 103 Carbon Dioxide 29.0 Anion Gap 12 BUN 53 H Creatinine 1.48 H Estim Creat Clear Calc 20.73 Est GFR (MDRD) Af Amer 43 L Est GFR (MDRD) Non-Af 36 L BUN/Creatinine Ratio 35.8 H Glucose 89 Lactic Acid 2.0 Calcium 9.5 Total Bilirubin 1.50 H Direct Bilirubin 0.57 H AST 74 H ALT 30 Alkaline Phosphatase 95 Troponin I High Sens 38 B-Natriuretic Peptide 282.5 H Total Protein 6.4 Albumin 3.1 L Globulin 3.3 Lipase 163 H Urine Color Yellow Urine Clarity Clear Urine pH 6.0 Ur Specific [place] 1.020 Urine Protein 30 H Urine Glucose (UA) Normal Urine Ketones 15 H Urine Occult Blood 25 H Urine Nitrite Positive H Urine Bilirubin Negative Urine Urobilinogen 1 H Ur Leukocyte Esterase 100 H Urine RBC 0 SEEN Urine WBC 5-10 SEEN Ur Squamous Epith Cells 0-5 SEEN Urine Bacteria 2+ Urine Mucus 0 SEEN Radiography Diagnostic Testing: Clinical Impression(s) from Imaging Studies Chest X-Ray 07/05/24 12:24 IMPRESSION: Persistent left hilar and infrahilar mass. Residual left lower lobe pneumonia/atelectasis. Electronically Signed: Rudy Nichols MD at 13:28 EST , Chest CTA 07/05/24 13:34 IMPRESSION: 1. No evidence of acute pulmonary embolism. 2. Stable extensive mediastinal and left hilar lymphadenopathy associated with stable 18 mm left lower lobe nodule. Electronically Signed: Rudy Nichols MD at 14:48 EST , Soft Tissue Neck CT 07/05/24 13:34 IMPRESSION: 2.2 cm enlarged lymph node identified on the left at level 6. Mediastinal lymphadenopathy Electronically Signed: Rudy Nichols MD at 15:51 EST , EKG Initial EKG: Attestation: I personally reviewed and interpreted this EKG as follows: Comments: Sinus rhythm with PACs and PVCs noted ventricular rate of 87 bpm Discharge Plan Dx/Rx/DC Orders Clinical Impression: Acute UTI, Acute dehydration, Acute hypokalemia, Acute hypoxemic respiratory failure, Lung cancer, Fall, Skin tear, Adult failure to thrive Disposition Disposition: Acute Care [facility]
[2024-07-05 13:12] LABS: Differential Indicated SCAN CRITERIA MET
--- NOTE | 2024-07-05 13:25 | ED.RN ---
LACTIC 2.0 DR NARANJO
--- NOTE | 2024-07-05 13:34 | CT_ITS ---
EXAM: CT NECK WITH INTRAVENOUS CONTRAST CLINICAL INDICATION: throat pain/malignancy TECHNIQUE: Helically acquired images were obtained of the neck with intravenous contrast. This CT exam was performed using one or more of the following dose reduction techniques: automated exposure control, adjustment of the mA and/or kV according to patient size, and/or use of iterative reconstruction technique. CONTRAST: IV 75mL Isovue-370 COMPARISON: No relevant prior studies available. FINDINGS: NASOPHARYNX: Normal. SUPRAHYOID NECK: Normal. Oropharynx, oral cavity, parapharyngeal space and retropharyngeal space are unremarkable. INFRAHYOID NECK: Normal. The larynx, hypopharynx and supraglottis are unremarkable. SUBMANDIBULAR/PAROTID GLANDS: Salivary glands are normal in size. THYROID: No thyroid tissue is absent. BONES/JOINTS: No suspicious lytic or blastic abnormality. SOFT TISSUES: Normal. VASCULATURE: Prominent calcific plaquing at both carotid bifurcations. No evidence of critical stenosis. LYMPH NODES: 2.2 cm enlarged lymph node identified on the left at level 6. LUNG APICES: Unremarkable as visualized. MEDIASTINUM: Mediastinal adenopathy again noted. Please refer to the CTA report of the same day for further information. CT/Soft Tissue Neck WITH Contrast IMPRESSION: 2.2 cm enlarged lymph node identified on the left at level 6. Mediastinal lymphadenopathy Electronically Signed: Rudy Nichols MD at 15:51 EST ,
--- NOTE | 2024-07-05 13:34 | CT_ITS ---
EXAM: CT ANGIOGRAPHY CHEST WITHOUT AND WITH INTRAVENOUS CONTRAST CLINICAL INDICATION: pulmonary embolism TECHNIQUE: Helically acquired angiography images were obtained of the chest without and with intravenous contrast. This CT exam was performed using one or more of the following dose reduction techniques: automated exposure control, adjustment of the mA and/or kV according to patient size, and/or use of iterative reconstruction technique. MIP reconstructed images were created and reviewed. CONTRAST: IV 75mL Isovue-370 COMPARISON: CT chest and 06/09/2023 FINDINGS: PULMONARY ARTERIES: Normal. Normal in caliber. No evidence of pulmonary embolism. AORTA: Normal. Normal in caliber. No evidence of dissection. GREAT VESSELS OF AORTIC ARCH: Normal. Normal in caliber. No evidence of dissection. LUNGS AND PLEURAL SPACES: Stable centrilobular emphysematous changes of the lungs. No pleural effusion or thickening. No pneumothorax. No significant change in the 18 mm nodule within the left lower lobe. HEART: Normal. Heart size is normal. No pericardial effusion. No significant coronary artery calcifications. MEDIASTINUM: See below. BONES/JOINTS: Fracture of the L2 vertebral body partially visualized is of uncertain age. No suspicious lytic or blastic abnormality. LYMPH NODES: Extensive adenopathy involving the paratracheal and subcarinal portion of the mediastinum noted as well as left hilum. Persistent compression of the left main bronchus due to the adenopathy. Subsegmental atelectatic change of the anterior segment of the left lower lobe. CT/CTA Chest W/WO Contrast IMPRESSION: 1. No evidence of acute pulmonary embolism. 2. Stable extensive mediastinal and left hilar lymphadenopathy associated with stable 18 mm left lower lobe nodule. Electronically Signed: Rudy Nichols MD at 14:48 EST ,
[2024-07-05 13:45] LABS: Mucous, Urine 0 SEEN /hpf (<or=2+); Red Blood Cells-Urine 0 SEEN /hpf (0-5)
[2024-07-05 13:47] LABS: Color, Urine Yellow (Yellow); Glucose, Dipstick Normal (Normal); Ketone-Dipstick 15 mg/dl (Negative); Leukocyte Esterase-Dipstick 100 /ul (Negative); Nitrite-Dipstick Positive (Negative); Occult Blood-Urine 25 /ul (Negative); Protein-Dipstick 30 mg/dl (Negative); Urine Bilirubin Dipstick Negative (Negative); Urine Clarity Clear (Clear); Urine Urobilinogen 1 mg/dl (Normal)
[2024-07-05 13:52] LABS: White Blood Cells 5-10 SEEN /hpf (0-5)
[2024-07-05 13:53] LABS: Bacteria 2+ /hpf (None Seen); Squamous Epithelial Cells - UA 0-5 SEEN /hpf (5-10)
[2024-07-05] MEDS: Ceftriaxone 1 GM/50 ML BAG IV (14:16)
[2024-07-05] MEDS: MethylPREDNISolone 125 MG/2 ML Vial 60 MG IV (14:16)
[2024-07-05] MEDS: Potassium Chloride Oral Tablet 20 MEQ 40 MEQ PO (14:16)
[2024-07-05] MEDS: 0.9% Normal Saline (1000mL) 1,000 ML 999 ML IV (15:30)
--- NOTE | 2024-07-05 15:42 | PCM.HP.STD ---
[facility] - General General Date of Admission: 07/05/24 Date of Service: 07/05/24 Chief Complaint: Shortness of breath HPI Narrative JUAN CARLOS XIAO, is a 84 F with past medical history of hypertension, AAA, iron deficiency anemia, nicotine use, peripheral vascular disease, coronary artery disease s/p PCI 1995, bilateral carotid artery stenosis, GERD, hypothyroidism who presents to the ED with concerns regarding generalized weakness. She has been noticing progressive hoarseness of voice since the last 1 month, is planned to be evaluated by ENT has had a history of partial laryngeal palsy. She was previously informed that it is likely that she has a lung mass that is pressing on a nerve causing the hoarseness. They were informed about the lung mass, bladder mass but the primary is not known. Their evaluation is still incomplete and she is planned for biopsy at [facility] next week. Per the family her overall functional status is steadily declining, uses a walker to ambulate unfortunately had a fall last night with skin tears in bilateral lower extremities. There is associated significant anorexia, cough. No history of fever, hematuria, blood in stool, nausea, vomiting, myalgias. At the time of presentation in the ED, blood pressure 154/51, patient desaturated to 88 on ambulation. WBC 9.4, hemoglobin 12.7, platelet count 152, PT 15.2 APTT 23.7 potassium 3.1 sodium 144, BUN 53, creatinine 1.4, T. bili 1.5, AST 74, ALT 30, BNP 282, albumin 3.1, lipase 163, urine protein 30, urine nitrate positive, leukoesterase 100, WBC 5-10. CTA chest showed stable centrilobular emphysematous changes of the lungs 18 mm nodule in the left lower lobe with extensive mediastinal and left hilar lymphadenopathy. In the ED she was given albuterol/ipratropium 1 dose, ceftriaxone 1 dose, methylprednisone 60 mg 1 dose, potassium chloride, normal saline 1 L. 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 difficile diarrhea Benign essential HTN Abdominal aortic aneurysm without rupture Breast cancer Peripheral vascular disease Atherosclerotic heart disease of [place] coronary artery without angina pectoris History of placement of stent in LAD coronary artery (~1995) Essential hypertension Acute anemia GERD (gastroesophageal reflux disease) Hypertension Hyperlipidemia Hypothyroid Home Medications ?Medication ?Instructions ?Recorded ?Last Taken ?Type aspirin 81 mg tablet,delayed 81 mg PO DAILY [employer] 03/29/18 07/04/24 History release furosemide 40 mg tablet 40 mg PO DAILY 02/05/22 07/04/24 History nitroglycerin 0.4 mg sublingual 0.4 mg sublingual Q5-15M PRN chest 08/23/22 Unknown Rx tablet pain #25 tabs levothyroxine 125 mcg tablet 125 mcg PO DAILY 05/24/23 07/04/24 History carvedilol 6.25 mg tablet 6.25 mg PO BID #180 tabs 05/23/24 07/04/24 Rx amlodipine 5 mg tablet 5 mg PO QDAY 06/18/24 07/04/24 History budesonide-formoterol HFA 160 1 inh inhalation ONCE 06/18/24 Unknown History mcg-4.5 mcg/actuation aerosol inhaler ezetimibe 10 mg tablet (Zetia) 10 mg PO QDAY 06/18/24 07/04/24 History oxycodone 5 mg tablet 5 mg PO Q6H PRN PRN pain 07/05/24 07/04/24 History potassium chloride 10 mEq 10 meq PO DAILY 07/05/24 Unknown History tablet,extended release Allergy/AdvReac Type Severity Reaction Status Date / Time cortisone Allergy Intermediate high BP, Verified 07/05/24 11:53 Swelling prednisone Allergy Intermediate High BP, Verified 07/05/24 11:53 Swelling hydroxychloroquine AdvReac Intermediate retinal Verified 07/05/24 11:53 damage [id number] Reductase AdvReac Unknown myalgia Verified 07/05/24 11:53 Inhibitor Family History Mother Breast cancer Glaucoma Father Liver cancer Hypertension Aunt Breast cancer Sister Dementia Surgical History History of back surgery History of bilateral mastectomy Status post endovenous radiofrequency ablation (RFA) of saphenous vein (~04/13/17) History of carotid endarterectomy (~02/2004) History of hysterectomy History of right breast biopsy History of laparoscopic cholecystectomy History of right and left heart catheterization History of orthopedic surgery History of colonoscopy History of esophagogastroduodenoscopy (EGD) Social History Smoking Status: Former smoker Tobacco: How many years used: 25 second hand exposure: Yes alcohol intake: never substance use type: does not use what type of physical activity do you participate in: none ROS Review of Systems ROS Unobtainable: Denies due to encephalopathy, due to endotracheal tube, due to mental condition, due to mental status or other Constitutional Constitutional: Reports anorexia, change in weight, fatigue, malaise and weakness ENT HEENT: Reports abnormal hearing Cardiovascular Cardiovascular: Reports dyspnea on exertion Respiratory/Chest Respiratory/Chest: Reports cough, dyspnea, excessive phlegm production, productive cough, shortness of breath at rest and shortness of breath with exertion Gastrointestinal Gastrointestinal: Reports abdominal pain Genitourinary Genitourinary: Denies burning urination, difficulty urinating, dysuria, hematuria, nocturia, urinary frequency, urinary hesitancy, urinary incontinence, urinary urgency or other Musculoskeletal Musculoskeletal: Denies arthralgias, back pain, joint pain, joint stiffness, joint swelling, myalgias, neck pain or other Neurologic Neurologic: Denies abnormal gait, abnormal speech, confusion, disequilibrium, dizziness, focal weakness, headache(s), numbness, paresthesias, seizure-like activity, seizures, syncope, tingling, tremor(s) or other Psychiatric Psychiatric: Denies anxiety, depression, homicidal ideation, suicidal ideation or other Endocrine Endocrinology: Denies change in body appearance, cold intolerance, excessive sweating, heat intolerance, polydipsia, polyuria or other Hematologic/Lymphatic Hematologic/Lymphatic: Reports easy bruising; Denies anemia, easy bleeding, lymphadenopathy or other Allergic/Immunologic Allergic/Immunologic: Denies rhinitis, hives, eczemia, asthma or other Vital Signs Vital Signs Vital Signs: 07/05/24 11:53 07/05/24 12:06 07/05/24 12:57 Temperature 97.9 F Temperature Source Oral Pulse Rate 85 86 Respiratory Rate 20 H 11 L Respiratory Effort Normal Non-Labored Respiratory Depth Normal Respiratory Pattern Normal Normal Blood Pressure 161/67 H Blood Pressure Mean 98 Pulse Ox 92 Oxygen Delivery Method Room Air Room Air Oxygen Flow Rate (L/min) 07/05/24 12:57 07/05/24 14:00 07/05/24 15:00 Temperature 97.7 F L 97.7 F L Temperature Source Oral Oral Pulse Rate 93 87 88 Respiratory Rate 18 18 19 H Respiratory Effort Respiratory Depth Respiratory Pattern Blood Pressure 157/68 H 133/79 H Blood Pressure Mean 97 97 Pulse Ox 100 95 94 Oxygen Delivery Method Nasal Cannula Nasal Cannula Nasal Cannula Oxygen Flow Rate (L/min) 2 2 2 07/05/24 15:00 07/05/24 15:05 Temperature 97.7 F L Temperature Source Oral Pulse Rate 83 Respiratory Rate 15 Respiratory Effort Respiratory Depth Respiratory Pattern Blood Pressure 150/69 H 154/51 H Blood Pressure Mean 96 85 Pulse Ox 100 Oxygen Delivery Method Nasal Cannula Oxygen Flow Rate (L/min) 2 Weight Weight: 106 lb 1.6 oz Body Mass Index (BMI) 18.1 Physical Exam Narrative Patient is comfortable, frail, able to talk in complete sentences Const alert and oriented x3 HEENT normocephalic Eyes PERRL Neck no lymphadenopathy Resp Resp Narrative: Bilateral coarse breath sounds present, adventitious breath sounds present Auscultation: rales and rhonchi Cardio regular rate and regular rhythm GI normal to inspection, nondistended, normoactive bowel sounds Extremity Extremity Narrative: Multiple skin bruises present Neuro oriented x3 Psych affect normal Results Medical Records Data Attestation: I reviewed the patient's medical records Lab / Micro Data Attestation: I reviewed the patient's lab results. 07/05/24 12:15 07/05/24 12:15 Labs: Laboratory Results - last 24 hr 07/05/24 12:15: WBC 9.4, RBC 4.64, Hgb 12.7, Hct 39.4, MCV 84.9, MCH 27.4, MCHC 32.2, RDW Std Deviation 49.3 H, RDW Coeff of [place] 16.3 H, Plt Count 152, MPV 10.5, Immature Gran % (Auto) 0.300, Neut % (Auto) 89.5 H, Lymph % (Auto) 4.3 L, [place] % (Auto) 5.6, Eos % (Auto) 0.0, Baso % (Auto) 0.3, Absolute Neuts (auto) 8.4 H, Absolute Lymphs (auto) 0.40 L, Nucleated RBC % 0, Differential Comment , PT 15.2 H, INR 1.2, APTT 23.7 L, Sodium 144, Potassium 3.1 L, Chloride 103, Carbon Dioxide 29.0, Anion Gap 12, BUN 53 H, Creatinine 1.48 H, Estim Creat Clear Calc 20.73, Est GFR (MDRD) Af Amer 43 L, Est GFR (MDRD) Non-Af 36 L, BUN/Creatinine Ratio 35.8 H, Glucose 89, Calcium 9.5, Total Bilirubin 1.50 H, Direct Bilirubin 0.57 H, AST 74 H, ALT 30, Alkaline Phosphatase 95, Troponin I High Sens 38, B-Natriuretic Peptide 282.5 H, Total Protein 6.4, Albumin 3.1 L, Globulin 3.3, Lipase 163 H 07/05/24 12:36: Lactic Acid 2.0 07/05/24 13:35: Urine Color Yellow, Urine Clarity Clear, Urine pH 6.0, Ur Specific [place] 1.020, Urine Protein 30 H, Urine Glucose (UA) Normal, Urine Ketones 15 H, Urine Occult Blood 25 H, Urine Nitrite Positive H, Urine Bilirubin Negative, Urine Urobilinogen 1 H, Ur Leukocyte Esterase 100 H, Urine RBC 0 SEEN, Urine WBC 5-10 SEEN, Ur Squamous Epith Cells 0-5 SEEN, Urine Bacteria 2+, Urine Mucus 0 SEEN Imaging Radiology Impression Chest X-Ray 07/05/24 12:24 IMPRESSION: Persistent left hilar and infrahilar mass. Residual left lower lobe pneumonia/atelectasis. Electronically Signed: Rudy Nichols MD at 13:28 EST , Chest CTA 07/05/24 13:34 IMPRESSION: 1. No evidence of acute pulmonary embolism. 2. Stable extensive mediastinal and left hilar lymphadenopathy associated with stable 18 mm left lower lobe nodule. Electronically Signed: Rudy Nichols MD at 14:48 EST , Assessment & Plan Assessment/Plan (1) Adult failure to thrive: PLAN: Plan 84-year-old female with recently detected malignancy with unknown primary, masses noted in the bladder, lung presents to the ED with concerns regarding progressive fatigue, weight loss and recurrent falls. She has a history of chronic smoking and had hypoxia on presentation but has never been diagnosed with COPD #Acute on chronic respiratory failure -Likely COPD exacerbation versus community-acquired pneumonia given the clinical findings -Start on ceftriaxone plus without prednisone plus albuterol/ipratropium bromide -Continue to monitor -Bronchopulmonary hygiene -COVID/flu swab -Oxygen support to maintain saturation greater than 92% #Suspected lung cancer -Is following with oncology as an outpatient -Needs further evaluation and tissue diagnosis -Continue to monitor for now # Laryngeal paralysis - Noted - NO inpatient evaluation at present - Outpatient evaluation already scheduled #Prior history of bladder cancer -Underwent transurethral resection of the bladder 07/09/2020 -Continue to monitor #Urinary tract infection -Urine culture -Continue ceftriaxone #Failure to thrive -In the setting of malignancy, multiple comorbidities, UTI -IV fluid normal saline at the rate 100 cc/h for 1 L -Nutrition consult -PT/OT evaluation # DVT - Enoxaparin 40 mg SC # AAA - noted, continue to monitor # Chronic nicotine use - last smoking about a month - nicotine patches as needed
[2024-07-05 16:40] LABS: Reflex Lactate? Y
--- NOTE | 2024-07-05 16:44 | ECHOD_ITS ---
Reason For Study: CHF Procedure This was a 2D Doppler, Color Flow transthoracic echocardiogram. The study was technically difficult. Exam performed portable in patient room. Left Ventricle Mild left ventricular concentric hypertrophy. Normal LV systolic function. Stage I diastolic dysfunction. Elevated left atrial pressures. Right Ventricle Normal right ventricle. Atria The left and right atria are normal. Mitral Valve Mild mitral annular calcification. Trivial mitral valve insufficiency. Tricuspid Valve Trivial tricuspid valve insufficiency. Unable to estimate RV systolic pressure due to insufficient tricuspid regurgitant envelope. Aortic Valve The aortic valve is not well visualized in the short axis view. Aortic sclerosis, no stenosis. Pulmonic Valve The pulmonic valve is not well visualized. Great Vessels The aortic root is not well visualized. Pericardium/Pleural No pericardial effusion. MMode/2D Measurements & Calculations RVDd: 3.2 cm LVOT diam: 2.0 cm LAV(MOD-sp4): 22.2 ml LVOT area: 3.1 cm2 SV(MOD-sp4): 38.3 ml SV(sp4-el): 38.2 ml LVAd ap4: 21.5 cm2 LVLd ap4: 7.4 cm SI(MOD-sp4): 25.4 ml/m2 EDV(MOD-sp4): 53.1 ml EDV(sp4-el): 53.2 ml LVAs ap4: 10.6 cm2 LVLs ap4: 6.4 cm ESV(MOD-sp4): 14.8 ml ESV(sp4-el): 14.9 ml EF(MOD-sp4): 72.1 % EF(sp4-el): 71.9 % LA A4 area: 11.6 cm2 RA A4 area: 11.2 cm2 Time Measurements MV dec time: 0.18 sec Doppler Measurements & Calculations MV E max andrea: 76.7 cm/sec Lat Peak E' Andrea: 4.3 cm/sec Med Peak E' Andrea: 4.4 cm/sec MV A max andrea: 136.8 cm/sec E/E' lat: 17.9 E/E' med: 17.6 MV E/A: 0.56 MV dec slope: 435.2 cm/sec2 Ao V2 max: 136.3 cm/sec LV V1 max: 118.3 cm/sec Ao max P.4 mmHg LV V1 max P.6 mmHg Ao V2 mean: 88.4 cm/sec LV V1 mean P.5 mmHg Ao mean P.6 mmHg LV V1 mean: 73.2 cm/sec Ao V2 VTI: 25.5 cm LV V1 VTI: 21.8 cm AV (velocity ratio): 0.86 HILDA(I,D): 2.6 cm2 HILDA(V,D): 2.7 cm2 SV(LVOT): 66.7 ml PA V2 max: 123.6 cm/sec TR max andrea: 279.2 cm/sec TR max P.2 mmHg ECHO/Echo Complete Interpretation Summary Mild left ventricular concentric hypertrophy. Normal LV systolic function. Stage I diastolic dysfunction. Elevated left atrial pressures. Mild mitral annular calcification. Aortic sclerosis, no stenosis. Ordering Physician: Damaso Ham Referring Physician: ALEXA JEWELL Performed By: Margret Vo and Student
[2024-07-05] MEDS: 0.9% Saline Lock 10 ML Syringe IV ×2 (17:38→21:02)
[2024-07-05] MEDS: oxyCODONE 5 MG Tablet PO (17:38)
[2024-07-05 17:53] LABS: Lactic Acid 1.3 mmol/L (0.4-1.9)
[2024-07-06] VITALS (12 sets, daily range): BP systolic 108–170; BP diastolic 60–87; PULSE 73–102; RESP 16–20; TEMP 36.3–36.7; O2SAT 90–100
[2024-07-06] MEDS: Ipratropium/Albuterol Sulfate 3 ML AMPUL.NEB INHALATION ×6 (03:54→22:52)
[2024-07-06] MEDS: 0.9% Saline Lock 10 ML Syringe IV ×3 (05:47→15:18)
[2024-07-06] MEDS: Furosemide 40 MG Tablet PO (08:26)
[2024-07-06] MEDS: oxyCODONE 5 MG Tablet PO ×3 (08:26→22:34)
[2024-07-06] MEDS: Aspirin E.C. 81 MG Tablet PO (08:26)
[2024-07-06] MEDS: amLODIPine 5 MG Tablet PO (08:26)
[2024-07-06] MEDS: Acetaminophen 500 MG Tablet 1000 MG PO ×3 (08:26→22:29)
[2024-07-06] MEDS: Phenazopyridine 95 MG Tablet PO ×3 (08:26→22:29)
[2024-07-06] MEDS: Polyethylene Glycol 3350 17 GM PACKET PO (08:26)
[2024-07-06] MEDS: Potassium Chloride Oral Tablet 10 MEQ PO (08:27)
[2024-07-06] MEDS: Enoxaparin 30 MG/0.3 ML Syringe SC (08:27)
--- NOTE | 2024-07-06 08:41 | WOUNDNOTE ---
wound photo: left lateral lower leg
--- NOTE | 2024-07-06 08:41 | WOUNDNOTE ---
wound photo: right lower leg
[2024-07-06] MEDS: Ceftriaxone 1 GM/50 ML BAG IV (08:54)
--- NOTE | 2024-07-06 09:20 | PN.HOSP_ITS ---
Subjective Subjective Does not feel very well. She does not feel like anything is changed since she has been admitted. Objective Data Objective Data Vital Signs: Vital Signs Temp Pulse Resp BP Pulse Ox O2 Del Method O2 Flow Rate 98.0 F 76 18 170/83 H 98 Nasal Cannula 2 07/06/24 07:36 07/06/24 07:36 07/06/24 07:36 07/06/24 07:36 07/06/24 07:36 07/06/24 07:41 07/06/24 07:41 Oxygen Flow Rate (L/min) 2 Oxygen Delivery Method Nasal Cannula Weight: 108 lb 0.424 oz Body Mass Index (BMI) 18.5 Intake & Output: Intake and Output for Last 24 Hours 07/05/24 07/06/24 07/07/24 03:59 03:59 03:59 Intake Total 1300 / 1300 100 / 100 Output Total 400 / 400 Balance 900 / 900 100 / 100 Lab / Micro Data 07/05/24 12:15 07/05/24 12:15 Labs: Laboratory Results - last 24 hr 07/05/24 12:15: WBC 9.4, RBC 4.64, Hgb 12.7, Hct 39.4, MCV 84.9, MCH 27.4, MCHC 32.2, RDW Std Deviation 49.3 H, RDW Coeff of [place]ant[place] 16.3 H, Plt Count 152, MPV 10.5, Immature Gran % (Auto) 0.300, Neut % (Auto) 89.5 H, Lymph % (Auto) 4.3 L, [place] % (Auto) 5.6, Eos % (Auto) 0.0, Baso % (Auto) 0.3, Absolute Neuts (auto) 8.4 H, Absolute Lymphs (auto) 0.40 L, Nucleated RBC % 0, Differential Comment , PT 15.2 H, INR 1.2, APTT 23.7 L, Sodium 144, Potassium 3.1 L, Chloride 103, Carbon Dioxide 29.0, Anion Gap 12, BUN 53 H, Creatinine 1.48 H, Estim Creat Clear Calc 20.73, Est GFR (MDRD) Af Amer 43 L, Est GFR (MDRD) Non-Af 36 L, B UN/Creatinine Ratio 35.8 H, Glucose 89, Calcium 9.5, Total Bilirubin 1.50 H, D irect Bilirubin 0.57 H, AST 74 H, ALT 30, Alkaline Phosphatase 95, Troponin I High Sens 38, B-Natriuretic Peptide 282.5 H, Total Protein 6.4, Albumin 3.1 L, Globulin 3.3, Lipase 163 H 07/05/24 12:36: Lactic Acid 2.0 07/05/24 13:35: Urine Color Yellow, Urine Clarity Clear, Urine pH 6.0, Ur Specific [place] 1.020, Urine Protein 30 H, Urine Glucose (UA) Normal, Urine Ketones 15 H, Urine Occult Blood 25 H, Urine Nitrite Positive H, Urine Bilirubin Negative, Urine Urobilinogen 1 H, Ur Leukocyte Esterase 100 H, Urine RBC 0 SEEN, Urine WBC 5-10 SEEN, Ur Squamous Epith Cells 0-5 SEEN, Urine Bacteria 2+, Urine Mucus 0 SEEN 07/05/24 17:00: Lactic Acid 1.3 Micro: Microbiology 07/05/24 17:00 Mucosa - Nasopharyngeal SARS-CoV-2, Influenza & RSV (PCR) - Final Radiography Diagnostic Testing: Radiology Impression Chest X-Ray 07/05/24 12:24 IMPRESSION: Persistent left hilar and infrahilar mass. Residual left lower lobe pneumonia/atelectasis. Electronically Signed: Rudy Nichols MD at 13:28 EST , Chest CTA 07/05/24 13:34 IMPRESSION: 1. No evidence of acute pulmonary embolism. 2. Stable extensive mediastinal and left hilar lymphadenopathy associated with stable 18 mm left lower lobe nodule. Electronically Signed: Rudy Nichols MD at 14:48 EST , Soft Tissue Neck CT 07/05/24 13:34 IMPRESSION: 2.2 cm enlarged lymph node identified on the left at level 6. Mediastinal lymphadenopathy Electronically Signed: Rudy Nichols MD at 15:51 EST , Physical Exam Narrative General: Alert, Oriented x3, Cooperative, No apparent distress, cachectic HEENT: Atraumatic, PERRLA, EOMI, Normocephalic Oral: Moist Mucosa Neck: Supple, No JVD Lungs: Diminished, Normal air movement, rhonchi, No wheeze, No rales Cardiovascular: Regular rate, Regular Rhythm, Normal S1, Normal S2, No murmurs Abdomen: Soft, Non Tender, Non-Distended, No Hepato-splenomegaly Extremities: No edema, Capillary Refill Less than 3 Seconds Skin: No rashes, No breakdown, multiple areas of bruising Musculoskeletal: No Tenderness to Palpation of Joints or Extremities Neurological: No focal neurological deficits, Motor Exam 5/5 strength throughout, Sensory exam intact to light touch and pain Psych/Mental Status: Normal Affect, Appropriate Assessment & Plan Assessment/Plan (1) Adult failure to thrive: PLAN: Plan 1. Acute on chronic respiratory failure secondary to COPD exacerbation ?Continue with the steroids as well as inhalers antibiotics ? Viral panels are negative ? Continue with oxygen wean as able, she does not wear any oxygen at home 2. CAD status post stent/essential HTN/HLD ? Blood pressures are stable ? Continue with her home blood pressure medications ? She is allergic to statins, continue with Zetia 3. Suspected lung cancer in the setting of a previous bladder cancer with tobacco abuse ? I had a 20-minute conversation on advance care planning including hospice care versus palliative care. It is hard to give her prognosis as she does not want any further workup. I discussed with her that without knowing what the cancer is we could not give her appropriate recommendations and prognostication. ? She has had a transurethral resection of the bladder in 2020 4. UTI ? Urine cultures pending ? Continue with Rocephin 5. Hypothyroidism ? Stable?continue with Synthroid DVT: Lovenox Charges/Coding Multi Select Codes Visit Charges Visit Charges: 35563 Subs Hosp L2 Hospitalists' Procedures Procedures: 63529 Advncd Care Plan 30 Min
[2024-07-06] MEDS: Levothyroxine 125 MCG Tablet PO (11:30)
[2024-07-06] MEDS: Azithromycin 500 MG in Dextrose 5%-Water (250mL Bag) 250 ML 250 MG IV (11:30)
--- NOTE | 2024-07-06 11:55 | CASEMGMT ---
ANAI LOVE NOTE: Dr Cesar requests palliative referral be made. Palliative referral sent to [facility] palliative via secure e-mail at this time. Cyndi KIRAN RN CM
--- NOTE | 2024-07-06 13:50 | CASEMGMT ---
ANAI LOVE Assessment Face to Face with patient for initial transition planning/care coordination assessment. ANAI LOVE introduced self and role at [facility], pt voices understanding. Pt is A&Ox4 and is resting comfortably in the chair and is calm. Care providers, pharmacy, and demographics verified. Admitting dx: SOB LACE Strata: 2 PCP: Sohail Varner Specialists: Denies Preferred Pharmacy: [facility] Insurance: [facility] Prescription Benefit: Yes LNOK: Jim Sadler (H), Oleg Ambriz (Son) Living Arrangements: Pt lives with her in a single story home with one step to enter ADLs/IADLs: Pt reports that her helps her at home Transportation: Pt does not drive. Pt drives DME: [facility]. W/C. Pt is currently on additional oxygen and may qualify for home oxygen. A verbal list of local in-network DME companies provided to the pt at this time. Prefers [facility]. HHC/SNF: denies history Pt?s goal: Return to PLOF Plan: TBD. Anticipate SNF vs Home with HHC. Follow oxygen needs. Therapy is recommending additional skilled therapy for the pt, see note. PT 6-Click score is 13. Pt was an assist x1 and ambulated 14 ft. Pt is unsure if she would like to go to a SNF or not at this time. Pt would like to wait and see how she progresses with therapy prior to making a commitment. Per Dr. Cesar, the pt qualifies for a Palliative Care Referral. See ANAI Mcknight CM, note. The CM has made the referral. Report given to MS3 ANAI LOVE. CM and SW to continue to follow. Mary Roberson RN, CM
[2024-07-07] VITALS (15 sets, daily range): BP systolic 131–151; BP diastolic 68–88; PULSE 82–101; RESP 16–24; TEMP 36.3–36.9; O2SAT 90–98
[2024-07-07] MEDS: Ipratropium/Albuterol Sulfate 3 ML AMPUL.NEB INHALATION ×5 (02:43→23:56)
[2024-07-07] MEDS: Acetaminophen 500 MG Tablet 1000 MG PO ×3 (05:43→22:41)
[2024-07-07] MEDS: Phenazopyridine 95 MG Tablet PO ×3 (05:43→22:41)
[2024-07-07] MEDS: Levothyroxine 125 MCG Tablet PO (05:43)
[2024-07-07] MEDS: oxyCODONE 5 MG Tablet PO ×3 (05:45→22:44)
[2024-07-07 07:17] LABS: Hemoglobin 12.6 g/dL (12.0-15.0); Mean Corp Hgb Conc 31.5 g/dL (32-36); Mean Corpuscular Hgb 27.1 pg (27.0-32.0); Mean Platelet Vol. 10.6 fl (6.2-12.0); Platelet Count 141 K/mm3 (150-450); RBC Distribution Width CV 16.8 % (11.6-14.6); RBC Distribution Width SD 51.3 fl (35.1-43.9); Red Blood Count 4.65 M/mm3 (4.2-5.4); White Blood Count 12.1 K/mm3 (4.4-11.0)
[2024-07-07 08:13] LABS: Anion Gap 8 (5-15); BUN 42 mg/dL (7-18); BUN/Creat Ratio 32.8 RATIO (10-20); Calcium,Total 9.5 mg/dL (8.5-10.1); Chloride 108 mmol/L (98-107); Creatinine, Serum 1.28 mg/dL (0.55-1.02); EST Glomerular Filtration Rate 42 mL/min (>60); Est Glom Filt Rate - Afr Amer 51 mL/min (>60); Glucose 170 mg/dL (74-106); Potassium 3.3 mmol/L (3.5-5.1); Sodium Level 145 mmol/L (136-145)
[2024-07-07] MEDS: Polyethylene Glycol 3350 17 GM PACKET PO (08:35)
[2024-07-07] MEDS: Enoxaparin 30 MG/0.3 ML Syringe SC (08:35)
[2024-07-07] MEDS: Potassium Chloride Oral Tablet 10 MEQ PO (08:37)
[2024-07-07] MEDS: amLODIPine 5 MG Tablet PO (08:37)
[2024-07-07] MEDS: Aspirin E.C. 81 MG Tablet PO (08:38)
[2024-07-07] MEDS: Furosemide 40 MG/4 ML Vial IV (08:43)
[2024-07-07] MEDS: predniSONE 20 MG Tablet 40 MG PO (08:44)
--- NOTE | 2024-07-07 09:11 | PN.HOSP_ITS ---
Subjective Subjective Had increased oxygen requirements last evening, will trial her on a dose of Lasix and order an ABG. She is not feeling well Objective Data Objective Data Vital Signs: Vital Signs Temp Pulse Resp BP Pulse Ox O2 Del Method O2 Flow Rate 98.1 F 91 18 151/68 H 91 Nasal Cannula 6 07/07/24 08:20 07/07/24 08:20 07/07/24 08:20 07/07/24 08:20 07/07/24 08:20 07/07/24 08:20 07/07/24 08:20 Oxygen Flow Rate (L/min) 6 Oxygen Delivery Method Nasal Cannula Weight: 108 lb 0.424 oz Body Mass Index (BMI) 18.5 Intake & Output: Intake and Output for Last 24 Hours 07/06/24 07/07/24 07/08/24 03:59 03:59 03:59 Intake Total 1300 / 1300 655 / 655 200 / 200 Output Total 400 / 400 650 / 650 Balance 900 / 900 5 / 5 200 / 200 Lab / Micro Data 07/07/24 07:04 07/07/24 07:04 Labs: Laboratory Results - last 24 hr 07/07/24 07:04: WBC 12.1 H, RBC 4.65, Hgb 12.6, Hct 40.0, MCV 86.0, MCH 27.1, M CHC 31.5 L, RDW Std Deviation 51.3 H, RDW Coeff of Chantel 16.8 H, Plt Count 141 L, MPV 10.6, Sodium 145, Potassium 3.3 L, Chloride 108 H, Carbon Dioxide 29.0, Anion Gap 8, BUN 42 H, Creatinine 1.28 H, Estim Creat Clear Calc 24.40, Est GFR (MDRD) Af Amer 51 L, Est GFR (MDRD) Non-Af 42 L, BUN/Creatinine Ratio 32.8 H, G lucose 170 H, Calcium 9.5 Micro: Microbiology 07/05/24 13:35 Urine, Clean Catch Urine Culture - Final Presumptive E. coli 07/05/24 17:00 Mucosa - Nasopharyngeal SARS-CoV-2, Influenza & RSV (PCR) - Final Radiography Diagnostic Testing: Radiology Impression Echocardiogram 07/05/24 16:44 Interpretation Summary Mild left ventricular concentric hypertrophy. Normal LV systolic function. Stage I diastolic dysfunction. Elevated left atrial pressures. Mild mitral annular calcification. Aortic sclerosis, no stenosis. Ordering Physician: Damaso Ham Referring Physician: ALEXA JEWELL Performed By: Margret Vo and Student Physical Exam Narrative General: Alert, Oriented x3, Cooperative, moderate respiratory distress, cachectic HEENT: Atraumatic, PERRLA, EOMI, Normocephalic Oral: Moist Mucosa Neck: Supple, No JVD Lungs: Diminished, Normal air movement, rhonchi, No wheeze, No rales, tachypneic with retractions Cardiovascular: Regular rate, Regular Rhythm, Normal S1, Normal S2, No murmurs Abdomen: Soft, Non Tender, Non-Distended, No Hepato-splenomegaly Extremities: No edema, Capillary Refill Less than 3 Seconds Skin: No rashes, No breakdown, multiple areas of bruising Musculoskeletal: No Tenderness to Palpation of Joints or Extremities Neurological: No focal neurological deficits, Motor Exam 5/5 strength throughout, Sensory exam intact to light touch and pain Psych/Mental Status: Flat Assessment & Plan Assessment/Plan (1) Adult failure to thrive: PLAN: Plan 1. Acute on chronic hypoxic respiratory failure secondary to COPD exacerbation ?Continue with the steroids as well as inhalers and antibiotics ? Viral panels are negative ? Continue with oxygen wean as able, she does not wear any oxygen at home ? Will give a dose of Lasix IV and ABG is pending 2. CAD status post stent/essential HTN/HLD ? Blood pressures are stable ? Continue with her home blood pressure medications ? She is allergic to statins, continue with Zetia 3. Suspected lung cancer in the setting of a previous bladder cancer with tobacco abuse ?We did consult palliative care ? She has had a transurethral resection of the bladder in 2019 4. UTI due to pansensitive ? Urine culture with pansensitive E. coli ? Continue with Rocephin 5. Hypothyroidism ? Stable ? Continue with Synthroid DVT: Lovenox Charges/Coding Visit Charges Inpatient E&M: 27416 Subs Hosp L2
[2024-07-07 10:37] LABS: Allen Test Positive; Base Excess 4 mmol/L (-2 to +2); Bicarbonate 28.2 mmol/L (22-26); Blood Gas Specimen Type ART; Mode Not entered; O2 Delivery Device HFNC; PO2 54 mmHG (75-100); SITE L Brach; SO2 90 % (95-99); Total Carbon Dioxide 29 mmol/L; pH 7.47 (7.35-7.45)
[2024-07-07] MEDS: Ceftriaxone 1 GM/50 ML BAG IV (10:54)
[2024-07-07] MEDS: 0.9% Saline Lock 10 ML Syringe IV (10:55)
[2024-07-07] MEDS: Azithromycin 500 MG in Dextrose 5%-Water (250mL Bag) 250 ML 250 MG IV (11:35)
[2024-07-08] VITALS (20 sets, daily range): BP systolic 97–165; BP diastolic 65–81; PULSE 88–113; RESP 18–22; TEMP 36.1–36.7; O2SAT 88–96
[2024-07-08] MEDS: oxyCODONE 5 MG Tablet PO ×3 (03:24→22:05)
[2024-07-08] MEDS: Ipratropium/Albuterol Sulfate 3 ML AMPUL.NEB INHALATION ×6 (03:43→23:06)
[2024-07-08 06:05] LABS: Absolute Neutrophil Count 9.6 X10^3/uL (2.0-7.7); Basophil# 0.06 X10^3/uL; Basophil% 0.5 % (0-1); Eosinophil# 0.03 X10^3/uL; Eosinophils% 0.3 % (0-5); Hematocrit 38.7 % (37-47); Lymphocyte % 3.7 % (19-41); Mean Corpuscular Hgb 26.8 pg (27.0-32.0); Mean Corpuscular Volume 86.4 fL (81-99); Mean Platelet Vol. 11.7 fl (6.2-12.0); Monocyte# 0.63 X10^3/uL; Monocyte% 5.8 % (0-10); NRBC Flagged by Analyzer 0.2 % (0-5); Neutrophil % 87.6 % (47-70); POSITIVE COUNT YES; POSITIVE DIFFERENTIAL YES; Platelet Count 80 K/mm3 (150-450); RBC Distribution Width CV 16.6 % (11.6-14.6); RBC Distribution Width SD 51.5 fl (35.1-43.9); Red Blood Count 4.48 M/mm3 (4.2-5.4)
[2024-07-08 06:43] LABS: Anion Gap 8 (5-15); BUN 44 mg/dL (7-18); BUN/Creat Ratio 37.9 RATIO (10-20); Calcium,Total 9.3 mg/dL (8.5-10.1); Chloride 104 mmol/L (98-107); Creatinine, Serum 1.16 mg/dL (0.55-1.02); EST Glomerular Filtration Rate 47 mL/min (>60); Est Glom Filt Rate - Afr Amer 57 mL/min (>60); Estimated Creatinine Clearance 26.93 ml/min; Glucose 109 mg/dL (74-106); Potassium 2.9 mmol/L (3.5-5.1); Sodium Level 146 mmol/L (136-145)
[2024-07-08 07:10] LABS: Anisocytosis 1+; Differential Comment SCANNED; Differential Indicated SCAN CRITERIA MET; Ovalocyte 1+; Platelet Estimate MOD DEC (ADEQ)
--- NOTE | 2024-07-08 08:24 | NURSING ---
Pt A & O x3, states she wants to leave and wants to go home. She told this nurse to contact , Jim to come pick her up. Jmi notified and stated he will be coming soon.
--- NOTE | 2024-07-08 08:49 | PCM.PN.HOSP ---
Subjective Subjective Does not feel like her breathing is any better, she is down to 4 L nasal cannula. Objective Data Objective Data Vital Signs: Vital Signs Temp Pulse Resp BP Pulse Ox O2 Del Method O2 Flow Rate 98.0 F 88 18 165/65 H 95 Nasal Cannula 4 07/08/24 08:06 07/08/24 08:06 07/08/24 08:06 07/08/24 08:06 07/08/24 08:06 07/08/24 08:06 07/08/24 08:06 Oxygen Flow Rate (L/min) 4 Oxygen Delivery Method Nasal Cannula Weight: 108 lb 0.424 oz Body Mass Index (BMI) 18.5 Intake & Output: Intake and Output for Last 24 Hours 07/07/24 07/08/24 07/09/24 03:59 03:59 03:59 Intake Total 655 / 655 905 / 905 200 / 200 Output Total 650 / 650 Balance 5 / 5 905 / 905 200 / 200 Lab / Micro Data 07/08/24 04:25 07/08/24 04:25 Labs: Laboratory Results - last 24 hr 07/08/24 04:25: WBC 11.0, RBC 4.48, Hgb 12.0, Hct 38.7, MCV 86.4, MCH 26.8 L, MCHC 31.0 L, RDW Std Deviation 51.5 H, RDW Coeff of Chantel 16.6 H, Plt Count 80 L, MPV 11.7, Immature Gran % (Auto) 2.100 H, Neut % (Auto) 87.6 H, Lymph % (Auto) 3.7 L, [place] % (Auto) 5.8, Eos % (Auto) 0.3, Baso % (Auto) 0.5, Absolute Neuts (auto) 9.6 H, Absolute Lymphs (auto) 0.40 L, Nucleated RBC % 0.2, Differential Comment SCANNED, Platelet Estimate MOD DEC, Anisocytosis 1+, Ovalocytes 1+, Sodium 146 H, Potassium 2.9 L, Chloride 104, Carbon Dioxide 34.0 H, Anion Gap 8, BUN 44 H, Creatinine 1.16 H, Estim Creat Clear Calc 26.93, Est GFR (MDRD) Af Amer 57 L, Est GFR (MDRD) Non-Af 47 L, BUN/Creatinine Ratio 37.9 H, Glucose 109 H, Calcium 9.3 Micro: Microbiology 07/05/24 14:13 Blood Culture (Wb) - Right Forearm Blood Culture - Preliminary No growth in 48 hours. 07/05/24 13:35 Urine, Clean Catch Urine Culture - Final Presumptive E. coli 07/05/24 17:00 Mucosa - Nasopharyngeal SARS-CoV-2, Influenza & RSV (PCR) - Final ABG Data ABG results: ABG 07/07/24 10:33 Specimen Type ART Sample Site L Brach pH 7.47 H Bicarbonate Actual 28.2 H Total CO2 29 Base Excess 4 H O2 Saturation 90 L O2 % 10.0 ABG pCO2 39.0 ABG pO2 54 L Inderjit Test Positive O2 Delivery Device HFNC Vent Mode Not entered Physical Exam Narrative General: Alert, Oriented x3, Cooperative, mild respiratory distress, cachectic HEENT: Atraumatic, PERRLA, EOMI, Normocephalic Oral: Moist Mucosa Neck: Supple, No JVD Lungs: Diminished, Normal air movement, rhonchi, No wheeze, No rales Cardiovascular: Regular rate, Regular Rhythm, Normal S1, Normal S2, No murmurs Abdomen: Soft, Non Tender, Non-Distended, No Hepato-splenomegaly Extremities: No edema, Capillary Refill Less than 3 Seconds Skin: No rashes, No breakdown, multiple areas of bruising Musculoskeletal: No Tenderness to Palpation of Joints or Extremities Neurological: No focal neurological deficits, Motor Exam 5/5 strength throughout, Sensory exam intact to light touch and pain Psych/Mental Status: Flat Assessment & Plan Assessment/Plan (1) Adult failure to thrive: PLAN: Plan 1. Acute on chronic hypoxic respiratory failure secondary to COPD exacerbation ?Continue with the steroids as well as inhalers and antibiotics ? Viral panels are negative ? Continue with oxygen wean as able, she does not wear any oxygen at home ? ABGs were fairly unremarkable 2. CAD status post stent/essential HTN/HLD ? Blood pressures are stable ? Continue with her home blood pressure medications ? She is allergic to statins, continue with Zetia 3. Suspected lung cancer in the setting of a previous bladder cancer with tobacco abuse ?We did consult palliative care ? She has had a transurethral resection of the bladder in 2019 4. UTI due to pansensitive ? Urine culture with pansensitive E. coli ? Continue with Rocephin 5. Hypothyroidism ? Stable ? Continue with Synthroid DVT: Lovenox Charges/Coding Visit Charges Inpatient E&M: 10418 Subs Hosp L2
[2024-07-08 11:11] LABS: Magnesium 2.5 mg/dL (1.6-2.6); Phosphorus 3.1 mg/dL (2.5-4.9)
[2024-07-08] MEDS: Potassium Chloride Oral Tablet 10 MEQ PO (11:45)
[2024-07-08] MEDS: Aspirin E.C. 81 MG Tablet PO (11:46)
[2024-07-08] MEDS: amLODIPine 5 MG Tablet PO (11:46)
[2024-07-08] MEDS: Menthol/Lanolin/Calamine/Znox 113 GM Tube 1 APPLIC TOPICAL ×2 (11:47→22:02)
[2024-07-08] MEDS: predniSONE 20 MG Tablet 40 MG PO (11:47)
[2024-07-08] MEDS: Enoxaparin 30 MG/0.3 ML Syringe SC (11:48)
[2024-07-08] MEDS: Ceftriaxone 1 GM/50 ML BAG IV (11:53)
[2024-07-08] MEDS: Azithromycin 500 MG in Dextrose 5%-Water (250mL Bag) 250 ML 250 MG IV (13:08)
[2024-07-08] MEDS: Potassium Chloride Oral Tablet 20 MEQ 60 MEQ PO (13:15)
[2024-07-08] MEDS: Acetaminophen 500 MG Tablet 1000 MG PO ×2 (14:34→22:02)
--- NOTE | 2024-07-08 16:42 | NURSING ---
Spoke to pt and when he arrived regarding the pts comments about wanting to leave. Pt and agree she will stay.
[2024-07-08 21:26] LABS: Hematocrit 31.6 % (37-47); Hemoglobin 9.9 g/dL (12.0-15.0); Mean Corp Hgb Conc 31.3 g/dL (32-36); Mean Corpuscular Hgb 27.4 pg (27.0-32.0); Mean Corpuscular Volume 87.5 fL (81-99); Mean Platelet Vol. 11.8 fl (6.2-12.0); Platelet Count 67 K/mm3 (150-450); RBC Distribution Width CV 16.8 % (11.6-14.6); RBC Distribution Width SD 53.2 fl (35.1-43.9); Red Blood Count 3.61 M/mm3 (4.2-5.4); White Blood Count 13.5 K/mm3 (4.4-11.0)
[2024-07-08 22:43] LABS: POSITIVE COUNT YES
--- NOTE | 2024-07-08 23:08 | CT_ITS ---
EXAM: CT Abdomen And Pelvis W/ Contrast Injection HISTORY: eval for active lower GIB TECHNIQUE: Routine protocol CT abdomen pelvis. IV Contrast: IV 75mL Isovue-370 . Oral Contrast: without. Sagittal and coronal images were reconstructed. RADIATION DOSAGE (If Supplied By Facility): CTDIvol = ( 7.78 ) mGy, DLP = ( 409.57 ) mGycm Individualized dose optimization techniques were used for this CT. COMPARISON: CT abdomen pelvis 06/13/2024. Images only, report not available. LIMITATIONS: None. FINDINGS: LOWER CHEST: Large left hilar mass, left lower lobe nodule not significantly changed compared to prior. New patchy groundglass opacities with indistinct nodular opacities throughout both lungs, greater on the right, new compared to prior. Small left pleural effusion unchanged. LIVER: Unremarkable. GALLBLADDER/BILE DUCTS: Gallbladder surgically absent. Intrahepatic ducts are dilated, not significantly changed. PANCREAS: Mass in the tail, 4.1 x 2.9 cm, is slightly increased compared to the prior. Adjacent mass adenopathy versus adrenal mass, 4.0 cm, is similar. SPLEEN: Small low-attenuation areas throughout the spleen including a larger geographic area anteriorly, and overall decreased size of the spleen compared to the prior. ADRENAL GLANDS: Unremarkable. KIDNEYS / URETERS: Lobulated kidneys with numerous low-attenuation regions, greater on the left, and areas of parenchymal thinning new and/or increased compared to prior. No hydronephrosis. No perinephric stranding. BOWEL / MESENTERY: Mild distended colon with fluid levels throughout the colon, nonspecific. The rectosigmoid colon is not distended, with prominent wall that is likely related to nondistention. There is a tiny hyperattenuating focus low in the rectum, and another small hyperdense focus in the cecum, which could be stool content, difficult to exclude focus of active bleeding. Limited by the technique and lack of precontrast series. No bowel obstruction. Large lobular soft tissue mass in the right paracolic gutter, 4.3 x 3.2 cm, is increased size. APPENDIX: Identified and normal. No evidence of acute appendicitis. PERITONEUM: No free air. No free fluid. VESSELS: Abdominal aorta is normal caliber. Splenic artery is not clearly visualized RETROPERITONEUM: Unremarkable. REPRODUCTIVE ORGANS: Uterus not identified. BLADDER: Unremarkable. ABDOMINAL WALL: Unremarkable. BONES: Relatively mottled heterogeneous appearance of the bones. L2 mild compression fracture appears acute with approximately 30% vertebral body height loss, new compared to prior, with slight posterior bowing of the posterior vertebral body margin into the spinal canal. Mild paravertebral soft tissue thickening, may be hematoma and/or soft tissue tumor. More focal soft tissue mass right paravertebral at T12, likely extends through the right transverse neural foramen, and small focus on the right at T10 without definite vertebral body fracture, also suspicious for malignancy. Surgical hardware lumbar spine and degenerative changes. OTHER: Bilateral breast implants noted. CT/Abdomen/Pelvis W IV Cont ONLY IMPRESSION: 1. Mild colonic distention with fluid levels is nonspecific. Subtle small hyperdense focus in the cecum and also in the rectum, could be stool content, difficult to exclude active bleeding. Consider nuclear medicine bleeding scan. 2. 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 Adjacent mass versus adrenal mass not significantly changed. Increased size of right paracolic mass. 3. Splenic lesions presumed splenic infarcts new compared to prior. 4. Multifocal renal lesions suspect renal infarcts new compared to prior. 5. Biliary dilatation stable may be postsurgical. 6. L2 mild compression fracture appears acute and likely pathologic. Also soft tissue mass right paravertebral at T12 with associated likely extends into the right neural foramen and smaller mass at T10. Follow-up MRI thoracic and lumbar spine is recommended to evaluate for intraspinal extension of tumor and/or cord compression. 7. Left hilar mass and left lower lobe pulmonary nodule unchanged. New diffuse nodular and groundglass opacities throughout the lower lungs may be inflammatory pneumonitis and/or metastatic disease. Electronically Signed: Christina Macias MD at 1:15 EST ,
[2024-07-08] MEDS: Pantoprazole Sodium 40 MG in 0.9% Normal Saline (100mL MB+) 100 ML 330 MG IV (23:55)
[2024-07-09] VITALS (9 sets, daily range): BP systolic 128–160; BP diastolic 62–78; PULSE 93–117; RESP 18–24; TEMP 36.9–37.2; O2SAT 93–99
--- NOTE | 2024-07-09 02:18 | PN.HOSP_ITS ---
Hospitalist Note Notified by nursing earlier this evening that patient was having new onset bloody stools. Initially had a bright red stool with clots and then mast bsequently had several smaller dark red stools with clots. Was noted to have drop in blood pressure to the 90s over 70s and had been normotensive to mildly hypertensive during this hospitalization. Stat CBC was drawn and showed hemoglobin 9.9, down from 12.0 earlier in the morning. Patient was also noted to have worsening platelet count with drop from 80 in the morning to 67 this evening. Given concern for active GI bleed, CT abdomen pelvis with IV contrast was obtained. IV Protonix 40 mg bolus was also given. CT scan showed many significant findings. Showed mild colonic distention with nonspecific fluid levels and subtle small hyperdense focus in the cecum and rectum concerning for possible bleed. 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 Large right paracolic mass was noted. Splenic lesions presumed due to splenic infarcts and multifocal renal lesions suspected due to renal infarcts were noted. L2 mild compression fracture that appeared acute and likely pathologic was noted. On arrival back to the floor after CT, patient remained hemodynamically stable. She has not had any further bloody bowel movements over the past few hours. On chart review, there were discussions with patient and family regarding palliative care versus hospice over the past few days. Given patient's new extensive findings as noted above, would strongly recommend discussing hospice care with patient and family today. Patient notably remains full code at this time. Repeat CBC ordered for this morning.
[2024-07-09] MEDS: Ipratropium/Albuterol Sulfate 3 ML AMPUL.NEB INHALATION ×2 (04:00→07:03)
[2024-07-09] MEDS: Acetaminophen 500 MG Tablet 1000 MG PO (04:49)
[2024-07-09] MEDS: oxyCODONE 5 MG Tablet PO (04:49)
[2024-07-09] MEDS: Levothyroxine 125 MCG Tablet PO (04:49)
[2024-07-09 07:12] LABS: Hematocrit 28.7 % (37-47); Mean Corp Hgb Conc 31.4 g/dL (32-36); Mean Corpuscular Hgb 27.6 pg (27.0-32.0); Mean Platelet Vol. 12.5 fl (6.2-12.0); POSITIVE COUNT YES; Platelet Count 58 K/mm3 (150-450); RBC Distribution Width SD 53.7 fl (35.1-43.9); Red Blood Count 3.26 M/mm3 (4.2-5.4); White Blood Count 13.5 K/mm3 (4.4-11.0)
[2024-07-09 07:23] LABS: Scan Indicated on CBC? Y/N NO
[2024-07-09 07:32] LABS: Anion Gap 4 (5-15); BUN 67 mg/dL (7-18); Calcium,Total 9.1 mg/dL (8.5-10.1); Chloride 112 mmol/L (98-107); Creatinine, Serum 1.24 mg/dL (0.55-1.02); EST Glomerular Filtration Rate 44 mL/min (>60); Est Glom Filt Rate - Afr Amer 53 mL/min (>60); Estimated Creatinine Clearance 25.19 ml/min; Glucose 159 mg/dL (74-106); Potassium 4.8 mmol/L (3.5-5.1); Sodium Level 148 mmol/L (136-145)
[2024-07-09 08:44] LABS: International Normalized Ratio 1.3; Prothrombin Time (Protime)PT. 16.2 SECONDS (11.7-14.9)
[2024-07-09] MEDS: Azithromycin 500 MG in Dextrose 5%-Water (250mL Bag) 250 ML 250 MG IV (09:37)
[2024-07-09] MEDS: 0.9% Saline Lock 10 ML Syringe IV ×2 (09:37→13:34)
[2024-07-09] MEDS: Morphine 2 MG/ML Syringe IV ×2 (09:37→10:07)
--- NOTE | 2024-07-09 09:44 | CASEMGMT ---
Addendum entered by Dianne Barnes 07/09/24 12:41: Social Work- SW spoke with hospice nurse Ariana; pt will admit [facility]. Physician notified. TITI Guzman Addendum entered by Dianne Barnes 07/09/24 11:23: Social Work- SW spoke with Ariana, hospice nurse, about timeline for assessment. SW advocated for soonest time slot; hospice nurse will arrive within the hour. KELLIE met with pt, pt son, and pt spouse to discuss timeline, answer questions, and provide support and education. KELLIE remains available to follow. TITI Guzman Original Note: Social Work- SW completed hospice referral per physician orders. KELLIE called and spoke with Eryn at [facility] to advise hospice that physician feels pt is imminent and to confirm receipt of referral. Eryn made note and reported that referral was in que. KELLIE remains available to follow. TITI Guzman
--- NOTE | 2024-07-09 09:54 | WOUNDNOTE ---
wound photo: left lower leg
--- NOTE | 2024-07-09 09:54 | WOUNDNOTE ---
wound photo: right lower leg
[2024-07-09] MEDS: Ceftriaxone 1 GM/50 ML BAG IV (11:25)
[2024-07-09] MEDS: 0.9% Normal Saline (500mL Bag) 500 ML 15 ML IV (11:25)
--- NOTE | 2024-07-09 13:31 | PCM.DC.SUM ---
Providers Date of Admission: 07/05/24 Date of Discharge: 07/09/24 Primary Care Physician: Dr. Sohail Varner, DO Consultations 07/06/24 07:26 Consult: Onc/Wound/liquid compounder Routine Comment: Reason for Consult:: skin tears EUGENE LE 07/09/24 09:29 Consult: Hospice / Palliative Care Routine Consulting Provider: [facility] Reason for Consult: end of life care EMERGENT Consult: Yes MD Notified: Yes Date Notified: 07/09/24 Time Notified: 09:30 Method of Notification: Answering Service Comments:: consulted by fabric worker fitter 07/09/24 09:33 Consult: Hospice / Palliative Care Routine Consulting Provider: [facility] Reason for Consult: hospice consult EMERGENT Consult: Yes MD Notified: Yes Date Notified: 07/09/24 Time Notified: 09:33 Method of Notification: Answering Service Reason For Visit: SHORTNESS OF BREATH Diagnosis Discharge Diagnosis (1) Adult failure to thrive: Status: Acute Code(s): R62.7 - Adult failure to thrive Plan #1 Acute on chronic hypoxic respiratory failure secondary to COPD exacerbation #2 COPD exacerbation #3 acute cystitis #4 coronary artery disease #5 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 Medications at Discharge Home Medications aspirin 81 mg tablet,delayed release 81 mg PO DAILY [employer] 03/29/18 furosemide 40 mg tablet 40 mg PO DAILY 02/05/22 nitroglycerin 0.4 mg sublingual tablet 0.4 mg sublingual Q5-15M PRN chest pain #25 tabs 08/23/22 levothyroxine 125 mcg tablet 125 mcg PO DAILY 05/24/23 carvedilol 6.25 mg tablet 6.25 mg PO BID #180 tabs 05/23/24 amlodipine 5 mg tablet 5 mg PO QDAY 06/18/24 budesonide-formoterol HFA 160 mcg-4.5 mcg/actuation aerosol inhaler 1 inh inhalation ONCE 06/18/24 ezetimibe 10 mg tablet (Zetia) 10 mg PO QDAY 06/18/24 oxycodone 5 mg tablet 5 mg PO Q6H PRN PRN pain 07/05/24 potassium chloride 10 mEq tablet,extended release 10 meq PO DAILY 07/05/24 Hospital Course Operations None Procedures 2-D Echocardiogram Summary of Care Provided Minutes Spent on Discharge: 31 Hospital Course: This 84-year-old white female was seen in the emergency room at [facility] with complaints of shortness of breath. She has a diagnosis of COPD but does not have home oxygen. Family related to the fact that she was diagnosed with cancer that was made by a physician in [facility]. Family and patient were poor historians. Patient noted her pulse ox at home was 88% on room air. Workup in the ER showed a normal white blood cell count, creatinine was 1.48 and BUN was 53. Beta natruretic peptide was 282, lipase was 163. Chest x-ray showed a left hilar and infrahilar mass, there is residual left lobe pneumonia/atelectasis. CTA of the chest showed no evidence of pulmonary embolism, there were stable extensive mediastinal and left hilar lymphadenopathy associated with a stable 18 mm left lower lobe nodule. Soft tissue CT of her neck showed a 2.2 cm enlarged lymph node and mediastinal lymphadenopathy. Patient was admitted to [place] [address] for exacerbation of COPD and hypoxia, she was given IV corticosteroids and aerosol treatments. Patient's medical condition declined however during her hospitalization, she underwent a CT of her abdomen and pelvis which showed findings of presumed malignancy and metastatic disease less likely primary pancreatic with a pancreatic mass. Discussions were carried out with the patient's family regarding hospice consultation, hospice saw the patient on 07/09/2024 and accepted the patient into inpatient hospice. On 07/09/2024, patient was seen and examined: On examination she appeared frail and unwell, she appeared to be in moderate respiratory distress. Vital signs as documented. Skin warm and dry and without overt rashes. Neck without JVD, thyroid appears normal, trachea is midline, neck is supple. Lungs expiratory rhonchi were noted over both lung, diminished air movement was noted. Heart exam notable for regular rhythm, normal sounds and absence of murmurs, rubs or gallops. Abdomen unremarkable and without evidence of organomegaly, masses, or abdominal aortic enlargement, bowel sounds are present in all 4 quadrants, no abdominal tenderness was noted. Extremities nonedematous, no cyanosis was noted, no clubbing was noted. Neuro: Cranial nerves II through XII are grossly intact, no focal motor deficits were noted, sensation to light touch and pinprick is intact, motor exam 5/5 throughout. Psych: Patient is alert Patient was transferred to inpatient hospice on 07/09/2024. Weight / BMI Weight Weight: 49 kg Body Mass Index (BMI) 18.5 ABG / Lab / Microbiology Data 07/09/24 06:37 07/09/24 06:37 Laboratory: Laboratory Results - last 24 hr 07/08/24 21:03: WBC 13.5 H, RBC 3.61 L, Hgb 9.9 L, Hct 31.6 L, MCV 87.5, MCH 27.4, MCHC 31.3 L, RDW Std Deviation 53.2 H, RDW Coeff of Chantel 16.8 H, Plt Count 67 L, MPV 11.8, Blood Type A POSITIVE, Antibody Screen NEGATIVE 07/09/24 06:37: WBC 13.5 H, RBC 3.26 L, Hgb 9.0 L, Hct 28.7 L, MCV 88.0, MCH 27.6, MCHC 31.4 L, RDW Std Deviation 53.7 H, RDW Coeff of Chantel 17.0 H, Plt Count 58 L, MPV 12.5 H, PT 16.2 H, INR 1.3, Sodium 148 H, Potassium 4.8, Chloride 112 H, Carbon Dioxide 32.0, Anion Gap 4 L, BUN 67 H, Creatinine 1.24 H, Estim Creat Clear Calc 25.19, Est GFR (MDRD) Af Amer 53 L, Est GFR (MDRD) Non-Af 44 L, BUN/Creatinine Ratio 54.0 H, Glucose 159 H, Calcium 9.1 Microbiology: Microbiology 07/05/24 14:13 Blood Culture (Wb) - Right Forearm Blood Culture - Final No growth in 5 days. 07/05/24 13:35 Urine, Clean Catch Urine Culture - Final Presumptive E. coli 07/05/24 17:00 Mucosa - Nasopharyngeal SARS-CoV-2, Influenza & RSV (PCR) - Final Radiography Diagnostic Testing: Radiology Impression Abdomen/Pelvis CT 07/08/24 23:08 IMPRESSION: 1. Mild colonic distention with fluid levels is nonspecific. Subtle small hyperdense focus in the cecum and also in the rectum, could be stool content, difficult to exclude active bleeding. Consider nuclear medicine bleeding scan. 2. 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 Adjacent mass versus adrenal mass not significantly changed. Increased size of right paracolic mass. 3. Splenic lesions presumed splenic infarcts new compared to prior. 4. Multifocal renal lesions suspect renal infarcts new compared to prior. 5. Biliary dilatation stable may be postsurgical. 6. L2 mild compression fracture appears acute and likely pathologic. Also soft tissue mass right paravertebral at T12 with associated likely extends into the right neural foramen and smaller mass at T10. Follow-up MRI thoracic and lumbar spine is recommended to evaluate for intraspinal extension of tumor and/or cord compression. 7. Left hilar mass and left lower lobe pulmonary nodule unchanged. New diffuse nodular and groundglass opacities throughout the lower lungs may be inflammatory pneumonitis and/or metastatic disease. Electronically Signed: Christina Macias MD at 1:15 EST , D/C Instructions DC O2, CPAP, BIPAP Needs Additional Home O2 Discharge instructions: No DC home with Oxygen: No Meaningful Use Info Meaningful Use Meaningful Use Diagnoses (Choose all that apply): None applicable Ischemic Stroke Statin Dosing Therapy Reference: STATIN DOSE THERAPY REFERENCE: * Patients > 75 years receive moderate or high dose statin therapy. * Patients 75 years or YOUNGER should receive HIGH intensity statin dose unless contraindicated. You will be required to document reason for non-treatment if statin daily dose does not meet guidelines. HIGH DOSE STATIN THERAPY DAILY Atorvastatin > than or = to 40 mg Rosuvastatin > than or = to 20 mg Amlodipine + Atorvastatin > than or = to 2.5/40 mg Ezetimibe + Simvastatin 10/80 mg Simvastatin 80mg Discharge Plan Admission Admit Date/Time: 07/05/24 16:04 Attending Provider: Roman Haley Primary Care Provider: Sohail Varner Consulting Providers: Damaso Ham; Geovanny Cesar; Olayinka Shell; Valerie Mahoney; Sandra Alexandra; Nicole Cano; Krissy Zheng NP; Giuliana Peres Discharge Orders/Prescriptions Prescriptions: No Action aspirin 81 mg tablet,delayed release (DR/EC) 81 mg PO DAILY Patient Comments: stop 5 days preop Rx Instructions: will stop 5 d ays prior furosemide 40 mg tablet 40 mg PO DAILY nitroglycerin 0.4 mg tablet, sublingual 0.4 mg SUBLINGUAL Q5-15M PRN (Reason: chest pain) Qty: 25 2RF levothyroxine 125 mcg tablet 125 mcg PO DAILY Patient Comments: take 1 tablet by mouth once daily amlodipine 5 mg tablet 5 mg PO QDAY budesonide-formoterol 160-4.5 mcg/actuation HFA aerosol inhaler 1 inh inhalation ONCE ezetimibe [Zetia] 10 mg tablet 10 mg PO QDAY potassium chloride 10 mEq tablet extended release 10 meq PO DAILY oxycodone 5 mg tablet 5 mg PO Q6H PRN PRN (Reason: pain) carvedilol 6.25 mg tablet 6.25 mg PO BID Qty: 180 3RF Rx Instructions: must administer with a meal/food Referrals / Follow Up: Sohail Varner DO [Primary Care Provider] - Disposition Disposition (needs filled in before D/C Order can be placed): Hospice in Medical Facility Charges/Coding Visit Charges Inpatient E&M: 26193 Disch Hosp >30min
[2024-07-09] MEDS: LORazepam 2 MG/ML Syringe 1 MG IV (13:33)
--- NOTE | 2024-07-09 16:09 | CHAPLAIN ---
Type of Pastoral Visit ___ Initial Visit ___ Follow-up Visit ___ On-call Visit ___ General Patient Visit ___ Spiritual Assessment ___ Family Conference ___ Bereavement ___ Rapid Response ___ Code Blue ___ Other (describe below) Pastoral Care Referral From ___ Patient ___ Family ___ Nurse ___ Physician ___ Brake Repairer ___ Saw Handle Assembler ___ Other (describe below) Sacrament/Intervention ___ Active listening ___ Anointing ___ Yazdanism ___ Bereavement ___ Communion ___ Maureen exploration ___ ___ Life review ___ Prayer ___ Reconciliation ___ Sacrament of Sick ___ Supportive presence ___ Wedding ___ Other (describe below) Pastoral Comments patient was discharged from her room before this manufacturing maintenance technician was able to see her
== END 2024-07-09 13:45 | disposition hospice, inpatient (51) | DRG 189 ==
LOC: ED 15:48 → MS3 16:34
PROVIDERS: Family Medicine; Hospitalist; Admitting Provider Internal Medicine; Emergency Provider Emergency Medicine; Visit Provider Internal Medicine
DX: J96.21 Acute and chronic respiratory failure with hypoxia (principal); J18.9 Pneumonia, unspecified organism; C78.01 Secondary malignant neoplasm of right lung; C78.02 Secondary malignant neoplasm of left lung; C25.9 Malignant neoplasm of pancreas, unspecified; J44.0 Chronic obstructive pulmonary disease with (acute) lower respiratory infection; J44.1 Chronic obstructive pulmonary disease with (acute) exacerbation; M84.48XA Pathological fracture, other site, initial encounter for fracture; N28.0 Ischemia and infarction of kidney; J98.11 Atelectasis; N30.00 Acute cystitis without hematuria; K92.1 Melena; Z68.1 Body mass index [BMI] 19.9 or less, adult; D69.6 Thrombocytopenia, unspecified; E03.9 Hypothyroidism, unspecified; I10 Essential (primary) hypertension; I73.9 Peripheral vascular disease, unspecified; D50.9 Iron deficiency anemia, unspecified; I65.23 Occlusion and stenosis of bilateral carotid arteries; D73.5 Infarction of spleen; E86.0 Dehydration; S81.811A Laceration without foreign body, right lower leg, initial encounter; I25.10 Atherosclerotic heart disease of native coronary artery without angina pectoris; E78.5 Hyperlipidemia, unspecified; I71.40 Abdominal aortic aneurysm, without rupture, unspecified; E87.6 Hypokalemia; S81.812A Laceration without foreign body, left lower leg, initial encounter; W19.XXXA Unspecified fall, initial encounter; K63.89 Other specified diseases of intestine; R59.0 Localized enlarged lymph nodes; J38.00 Paralysis of vocal cords and larynx, unspecified; R62.7 Adult failure to thrive; M81.0 Age-related osteoporosis without current pathological fracture; I49.3 Ventricular premature depolarization; I49.1 Atrial premature depolarization; Z95.5 Presence of coronary angioplasty implant and graft; Z85.3 Personal history of malignant neoplasm of breast; Z90.49 Acquired absence of other specified parts of digestive tract; Z86.19 Personal history of other infectious and parasitic diseases; Z90.13 Acquired absence of bilateral breasts and nipples; Z87.19 Personal history of other diseases of the digestive system; Z79.82 Long term (current) use of aspirin; Z79.890 Hormone replacement therapy; Z79.899 Other long term (current) drug therapy; Z87.891 Personal history of nicotine dependence; Z91.81 History of falling; Z85.51 Personal history of malignant neoplasm of bladder; Z98.890 Other specified postprocedural states
CPT/HCPCS: 36415; 36600; 70491; 71045; 71275; 74177; 80048; 80076; 81001; 82803; 83605; 83690; 83735; 83880; 84100; 84484; 85025; 85027; 85610; 85730; 86850; 86900; 86901; 87040; 87086; 87088; 87186; 87631; 92526; 92610; 93005; 93306; 94640; 94762; 97110; 97116; 97162; 97166; 97530; 97535; 97802; 99285; J7030; J7040; Q9967; A4216; J1940